=== PATIENT | female | born 1940 | race Caucasian/White ===

== ENCOUNTER → 2016-04-30 | Outpatient (CLI) | payer MEDICARE, OTHER ==
[2016-04-30 14:29] LABS: ABSOLUTE EOSINOPHILS # (AUTO) 0.4 10^3/uL (0.0-0.6); ABSOLUTE LYMPHOCYTES (AUTO) 1.5 10^3/uL (0.5-4.7); ABSOLUTE MONOCYTES (AUTO) 0.6 10^3/uL (0.1-1.4); ABSOLUTE NEUT (AUTO) 3.7 10^3/uL (1.7-8.2); BASOPHILS % (AUTO) 0.4 % (0-2); HEMATOCRIT 46.6 % (36.0-47.0); HEMOGLOBIN 15.9 g/dL (12.0-15.5); HGB HCT DIFFERENCE 1.1; MEAN CORPUSCULAR HEMOGLOBIN 30.2 pg (27.0-33.4); MEAN CORPUSCULAR VOLUME 89 fl (80-97); MONOCYTES % (AUTO) 9.6 % (3-13); RED BLOOD COUNT 5.25 10^6/uL (3.72-5.28); RED CELL DISTRIBUTION WIDTH 14.9 % (11.5-14.0); WHITE BLOOD COUNT 6.2 10^3/uL (4.0-10.5)
[2016-04-30 14:46] LABS: APPEARANCE,URINE CLEAR; BILIRUBIN,URINE NEGATIVE (NEGATIVE); GLUCOSE, URINE 150 mg/dL (NEGATIVE); KETONES,URINE NEGATIVE (NEGATIVE); LEUKOCYTE ESTERASE,URINE SMALL (NEGATIVE); NITRITE,URINE NEGATIVE (NEGATIVE); PROTEIN,URINE NEGATIVE (NEGATIVE); URINE SPECIFIC GRAVITY 1.008; UROBILINOGEN,URINE NEGATIVE mg/dL (<2.0)
[2016-04-30 14:49] LABS: ALBUMIN 3.8 g/dL (3.5-5.0); ANION GAP 11 (5-19); BLOOD UREA NITROGEN 28 mg/dL (7-20); CALCIUM 9.4 mg/dL (8.4-10.2); CARBON DIOXIDE 33 mmol/L (22-30); CHLORIDE 99 mmol/L (98-107); CREATININE RESULT 1.33 mg/dL (0.52-1.25); GLUCOSE 294 mg/dL (75-110); PHOSPHORUS 3.1 mg/dL (2.5-4.5); POTASSIUM 3.7 mmol/L (3.6-5.0); SODIUM 143.3 mmol/L (137-145)
[2016-05-02 08:36] LABS: VITAMIN D 25-HYDROXY 32.3 ng/mL (30.0-100.0)
[2016-05-02 11:39] LABS: CREATININE URINE 27.2 mg/dL (Not Estab.); MICROALBUMIN URINE <3.0 ug/mL (Not Estab.)
== END ==
LOC: OD 12:50
PROVIDERS: ATTEND Internal Medicine Nephrology
DX: N18.3 Chronic kidney disease, stage 3 (moderate) (principal); D50.9 Iron deficiency anemia, unspecified; E55.9 Vitamin D deficiency, unspecified
CPT/HCPCS: 36415; 80048; 81001; 82040; 82043; 82306; 82570; 82728; 83540; 83550; 83970; 84100; 85025

== ENCOUNTER → 2016-09-20 | Outpatient (CLI) | payer MEDICARE, OTHER ==
--- NOTE | 2016-09-20 17:29 | RADIOLOGY REPORT (SQ) ---
EXAM DESCRIPTION: VENOUS UNILATERAL LOWER COMPLETED DATE/TIME: 09/20/2016 5:02 pm REASON FOR STUDY: LLE VENOUS I82.409 ACUTE EMBOLISM AND THOMBOS UNSP DEEP VN UNSP LOWER E COMPARISON: None. TECHNIQUE: Dynamic and static alcaraz scale and color images acquired of the left leg venous system. Se lected spectral images acquired with additional compression and augmentation maneuvers. The contralat eral common femoral vein and saphenofemoral junction were also imaged. Images stored on PACS. LIMITATIONS: None. FINDINGS: COMMON FEMORAL: Normal phasicity, compression and augmentation. No visualized echogenic ma terial on alcaraz scale. No defects on color images. FEMORAL: Normal compression and augmentation. No visualized echogenic material on alcaraz scale. No defe cts on color images. POPLITEAL: Normal compression, augmentation. No visualized echogenic material on alcaraz scale. No defec ts on color images. CALF VESSELS: Normal compression, augmentation. No visualized echogenic material on alcaraz scale. No de fects on color images. GSV and SSV: Normal compression, augmentation. No visualized echogenic material on alcaraz scale. No def ects on color images. ANY DEEP VENOUS INSUFFICIENCY: Not evaluated. ANY EVIDENCE OF POPLITEAL CYST: No. OTHER: No other significant finding. CONTRALATERAL COMMON FEMORAL VEIN AND SAPHENOFEMORAL JUNCTION: Normal phasicity, compression and augmentation. No visualized echogenic material on alcaraz scale. No de fects on color images. IMPRESSION: NO EVIDENCE DVT OR SVT IN THE LEFT LEG. TECHNICAL DOCUMENTATION: JOB ID: [id number] [employer]- All Rights Reserved
== END ==
LOC: SP 16:06
PROVIDERS: ATTEND Podiatrist Foot Surgery
DX: M79.605 Pain in left leg (principal); M79.89 Other specified soft tissue disorders
CPT/HCPCS: 93971

== ENCOUNTER 2016-10-19 22:16 | Observation (INO) | payer MEDICARE, OTHER ==
[2016-10-19] MEDS ORDERED: NITROGLYCERIN 2% OINTMENT 1 GM PACKET TP ONE (22:50)
--- NOTE | 2016-10-19 22:51 | ER Document Report ---
ED General - General Stated Complaint: POSSIBLE STROKE SYMPTOMS Time Seen by Provider: 10/19/16 22:24 Mode of Arrival: Medic Information source: Patient, Emergency Med Personnel TRAVEL OUTSIDE OF THE [place] IN LAST 30 DAYS: No - HPI Notes: Patient is a pleasant 76-year-old female history of MN, atrial fibrillation, cardiac pacemaker placed 7 years ago and was told that she needs a battery replacement in 3 months on recent evaluation, chronic kidney disease, reflux, sleep apnea, diabetes, vascular disease with right leg stents with report that she had 3 episodes where she felt lightheaded and hot and flushed and near syncopal earlier today. First episode occurred earlier in the day when she was walking and she felt lightheaded and had to catch herself. Another episode happened when she is sitting upright at the dining room table where she felt hot flushed and felt a palpitation sensation with rapid heart rate associated. This episode occurred about 3 hours prior to arrival. Just prior to arrival she was upright going to brush her teeth when she felt the same lightheaded generalized weakness and felt a very brief mild headache and then started having chest discomfort. She states she felt near syncopal and called for EMS. She noticed again having a rapid heart rate with palpitations associated with this episode. Patient was seen by EMS and found to have a blood sugar of 339. She was given sublingual nitro and her chest pain came down from a 8 to a 5 and was a 2 out of 10 upon arrival. Patient reports she recently was started on Plavix but another anticoagulant was discontinued. She is on Coumadin. Patient states her weakness was generalized without any unilateral finding. She reports no focal numbness or paresthesia. She has been compliant with her medications. She will reports a 10 pound weight loss recently. - Related Data Allergies/Adverse Reactions: cefazolin sodium [From Ancef] Allergy (Verified 06/09/13 16:16) Iodinated Contrast- Oral and IV Dye [IV Dye, Iodine Containing] Allergy ( Verified 06/09/13 16:16) Zkoheau-Xcw-Giq Reductase Inhibitor Allergy (Verified 10/19/16 22:54) Sulfa (Sulfonamide Antibiotics) Allergy (Verified 06/09/13 16:16) Home Medications: Current Home Medications Ascorbic Acid [Vitamin C 500 mg Tablet] 500 mg PO DAILY 10/20/16 [History] Cholecalciferol (Vitamin D3) [Vitamin D3] 3 cap PO DAILY 10/20/16 [History] Doxycycline Hyclate [Doxycycline Hyclate] 100 mg PO PRN PRN 10/20/16 [History] Fluticasone Propionate 2 sprays IN QHS PRN 10/20/16 [History] Guaifenesin [Mucinex] 600 mg PO Q12HP PRN 10/20/16 [History] Insulin Glargine,Hum.rec.anlog [Lantus Insulin 100 Unit/mL] 55 unit SUBCUT BID 10/20/16 [History] Metoprolol Succinate [Toprol-Xl 25 mg Tab.sr] 1 tab PO DAILY 10/20/16 [History] Warfarin Sodium [Coumadin 5 mg Tablet] 5 mg PO QHS 10/20/16 [History] Past Medical History - General Information source: Patient - Social History Smoking Status: Never Smoker Drug Abuse: None Lives with: Alone Family History: Reviewed & Not Pertinent - Past Medical History Cardiac Medical History: Reports: Hx Congestive Heart Failure, Hx Coronary Artery Disease, Hx Heart Attack, Hx Hypercholesterolemia Pulmonary Medical History: Reports: Hx Bronchitis, Hx COPD Denies: Hx Tuberculosis Endocrine Medical History: Reports: Hx Diabetes Mellitus Type 2 GI Medical History: Reports: Hx Gastroesophageal Reflux Disease Psychiatric Medical History: Reports: Hx Anxiety, Hx Depression Past Surgical History: Reports: Hx Cardiac Catheterization, Hx Cardiac Surgery - paced, Hx Pacemaker - Immunizations Immunizations up to date: No Hx Diphtheria, Pertussis, Tetanus Vaccination: Yes Hx Pneumococcal Vaccination: 04/22/11 Review of Systems - Review of Systems Notes: REVIEW OF SYSTEMS: CONSTITUTIONAL : Denies fever, chills. Denies recent illness. Patient reports associated diaphoresis with the symptoms. EENT: Denies eye, ear, throat, or mouth pain or symptoms. Denies nasal or sinus congestion or discharge. Denies throat, tongue, or mouth swelling or difficulty swallowing. CARDIOVASCULAR: Denies ankle edema. RESPIRATORY: Denies cough, cold, or chest congestion. Denies shortness of breath, difficulty breathing, or wheezing. GASTROINTESTINAL: Denies abdominal pain or distention. Denies nausea, vomiting , or diarrhea. Denies blood in vomitus, stools, or per rectum. Denies black, tarry stools. Denies constipation. GENITOURINARY: Denies difficulty urinating, painful urination, burning, frequency, blood in urine, or discharge. FEMALE GENITOURINARY: Denies vaginal bleeding, heavy or abnormal periods, irregular periods. Denies vaginal discharge or odor. MUSCULOSKELETAL: Denies back or neck pain or stiffness. Denies joint pain or swelling. SKIN: Denies rash, lesions or sores. HEMATOLOGIC : Denies easy bruising or bleeding. LYMPHATIC: Denies swollen, enlarged glands. NEUROLOGICAL: Denies confusion or altered mental status. Denies passing out or loss of consciousness. Denies weakness or paralysis or loss of use of either side. Denies sensory loss, numbness, or tingling. Denies seizures. Patient currently denies any headache. She reports no weakness currently. PSYCHIATRIC: Denies anxiety or stress. Denies depression, suicidal ideation, or homicidal ideation. ALL OTHER SYSTEMS REVIEWED AND NEGATIVE. Dictation was performed using [employer] voice recognition software Physical Exam - Vital signs Vitals: Temp Pulse Resp BP Pulse Ox 97.7 F 70 22 H 130/56 H 96 10/19/16 22:54 10/19/16 22:54 10/19/16 22:54 10/19/16 22:54 10/19/16 22:54 - Notes Notes: PHYSICAL EXAMINATION: GENERAL: Well-appearing, well-nourished and in no acute distress. HEAD: Atraumatic, normocephalic. EYES: Pupils equal round and reactive to light, extraocular movements intact, conjunctiva are normal. ENT: Nares patent, oropharynx clear without exudates. Moist mucous membranes. NECK: Normal range of motion, supple without lymphadenopathy. Question carotid bruit bilat. LUNGS: Breath sounds clear to auscultation bilaterally and equal. No wheezes rales or rhonchi. HEART: Regular rate and rhythm with 1/6 JA over apex ABDOMEN: Soft, nontender, nondistended abdomen. No guarding, no rebound. No masses appreciated. Obese. No cerebellar ataxia. Female : deferred Musculoskeletal: Normal range of motion, no pitting or edema. No cyanosis. NEUROLOGICAL: Cranial nerves grossly intact. Normal speech, normal gait. Normal sensory, motor exams. PSYCH: Normal mood, normal affect. SKIN: Warm, Dry, normal turgor, no rashes or lesions noted. Course - Re-evaluation Re-evalutation: 10/19/16 22:59 No obvious evidence of suggestion for CVA, as the weakness was more generalized , associated with palpitation sensation and irregular heart rate. Patient was given potassium by mouth and was given potassium IV with normal saline with 40 KCl at 2 50 cc an hour. Patient's renal insufficiency is somewhat worse than her previous baseline, possibly indicative of some mild dehydration. Patient had stable vital signs and denied any chest discomfort on 1 inch of nitroglycerin paste. 10/20/16 02:04 Patient was watched up on the color television console monitor and showed no ectopy or arrhythmia , although patient's symptoms are suggestive for arrhythmia. There is no evidence for pacemaker malfunction currently, but the patient states she has 3 months left on her battery after pacemaker placement 7 years ago. Also question mild dehydration as a cause of patient's near syncopal episodes, although one occurred when she was in the seated position. No suggestion for GI bleed or obvious infection. Must also consider unstable angina given the chest pain with response to nitroglycerin. Discussion was undertaken with the patient and she was in agreement with admission for further evaluation and care and rehydration and cardiac monitoring. Discussion was undertaken with the Hospitalist, who was unavailable to admit the patient at the time due to high census . 10/20/16 04:26 Discussion again was undertaken with the hospitalist who was unavailable to admit patient at the time. - Vital Signs Vital signs: Temp Pulse Resp BP Pulse Ox 97.7 F 70 17 121/53 L 96 10/19/16 22:54 10/20/16 03:15 10/20/16 04:01 10/20/16 03:16 10/20/16 04:01 - Laboratory Result Diagrams: 10/19/16 23:24 10/19/16 23:24 Laboratory results interpreted by me: 10/19/16 10/19/16 10/19/16 23:24 23:24 23:24 RDW 14.8 H Eosinophils % 6.1 H PT 18.6 H Potassium 2.9 L* Chloride 96 L BUN 49 H Creatinine 1.79 H Est GFR ( Amer) 33 L Est GFR (Non-Af Amer) 27 L Glucose 239 H Magnesium 1.3 L AST 46 H Urine Glucose (UA) 10/19/16 23:40 RDW Eosinophils % PT Potassium Chloride BUN Creatinine Est GFR ( Amer) Est GFR (Non-Af Amer) Glucose Magnesium AST Urine Glucose (UA) 50 H - EKG Interpretation by Me Additional EKG results interpreted by me: 10/19/16 22:58 EKG as interpreted by me showed ventricular paced rhythm rate 70 with no gross evidence for acute MN or ischemia. There was a secondary bundle branch block. There was no gross change from previous EKG reviewed from 12/14/14. Critical Care Note - Critical Care Note Total time excluding time spent on procedures (mins): 52 Discharge - Discharge Clinical Impression: Near syncope, Palpitations, Renal insufficiency, Hypokalemia
--- NOTE | 2016-10-19 23:20 | RADIOLOGY REPORT (SQ) ---
EXAM DESCRIPTION: CHEST SINGLE VIEW COMPLETED DATE/TIME: 10/19/2016 11:10 pm REASON FOR STUDY: chest pain COMPARISON: 2014 EXAM PARAMETERS: NUMBER OF VIEWS: One view. TECHNIQUE: Single frontal radiographic view of the chest acquired. RADIATION DOSE: NA LIMITATIONS: None. FINDINGS: LUNGS AND PLEURA: No opacities, masses or pneumothorax. No pleural effusion. MEDIASTINUM AND HILAR STRUCTURES: No masses. Contour normal. HEART AND VASCULAR STRUCTURES: Heart normal in size. Normal vasculature. BONES: No acute findings. HARDWARE: Cardiac transvenous pacemaker. OTHER: No other significant finding. IMPRESSION: NO ACUTE RADIOGRAPHIC FINDING IN THE CHEST. TECHNICAL DOCUMENTATION: JOB ID: [id number]
[2016-10-19 23:39] LABS: ABSOLUTE EOSINOPHILS # (AUTO) 0.5 10^3/uL (0.0-0.6); ABSOLUTE LYMPHOCYTES (AUTO) 1.7 10^3/uL (0.5-4.7); ABSOLUTE MONOCYTES (AUTO) 0.9 10^3/uL (0.1-1.4); ABSOLUTE NEUT (AUTO) 4.5 10^3/uL (1.7-8.2); BASOPHILS % (AUTO) 0.6 % (0-2); EOSINOPHILS % (AUTO) 6.1 % (0-6); HEMATOCRIT 43.8 % (36.0-47.0); HEMOGLOBIN 14.5 g/dL (12.0-15.5); HGB HCT DIFFERENCE -0.3; LYMPHOCYTES % (AUTO) 22.1 % (13-45); MEAN CORPUSCULAR HEMOGLOBIN 29.8 pg (27.0-33.4); MEAN CORPUSCULAR HGB CONC 33.1 g/dL (32.0-36.0); MEAN CORPUSCULAR VOLUME 90 fl (80-97); MONOCYTES % (AUTO) 11.3 % (3-13); RED BLOOD COUNT 4.86 10^6/uL (3.72-5.28); RED CELL DISTRIBUTION WIDTH 14.8 % (11.5-14.0); SEGMENTED NEUTROPHILS % (AUTO) 59.9 % (42-78); WHITE BLOOD COUNT 7.6 10^3/uL (4.0-10.5)
[2016-10-19 23:45] LABS: PROTHROMBIN TIME 18.6 SEC (11.4-15.4)
[2016-10-19 23:55] LABS: ALANINE AMINOTRANSFERASE 43 U/L (9-52); ALBUMIN 3.8 g/dL (3.5-5.0); ALKALINE PHOSPHATASE 95 U/L (38-126); ANION GAP 14 (5-19); ASPARTATE AMINO TRANSFERASE 46 U/L (14-36); BILIRUBIN,DIRECT 0.3 mg/dL (0.0-0.4); BILIRUBIN,TOTAL 0.8 mg/dL (0.2-1.3); BLOOD UREA NITROGEN 49 mg/dL (7-20); CALCIUM 9.6 mg/dL (8.4-10.2); CARBON DIOXIDE 29 mmol/L (22-30); CHLORIDE 96 mmol/L (98-107); CREATININE RESULT 1.79 mg/dL (0.52-1.25); GLUCOSE 239 mg/dL (75-110); MAGNESIUM 1.3 mg/dL (1.6-2.3); SODIUM 139.3 mmol/L (137-145)
[2016-10-19 23:58] LABS: APPEARANCE,URINE SLIGHTLY-CLOUDY; BILIRUBIN,URINE NEGATIVE (NEGATIVE); GLUCOSE, URINE 50 mg/dL (NEGATIVE); KETONES,URINE NEGATIVE (NEGATIVE); LEUKOCYTE ESTERASE,URINE NEGATIVE (NEGATIVE); NITRITE,URINE NEGATIVE (NEGATIVE); PROTEIN,URINE NEGATIVE (NEGATIVE); URINE SPECIFIC GRAVITY 1.011; UROBILINOGEN,URINE NEGATIVE mg/dL (<2.0)
[2016-10-20 00:02] LABS: POTASSIUM 2.9 mmol/L (3.6-5.0)
[2016-10-20] MEDS ORDERED: POTASSIUM CHLORIDE 10 MEQ TABLET.SA PO ONE (00:05)
[2016-10-20 00:07] LABS: CREATINE KINASE MB 1.54 ng/mL (<4.55)
[2016-10-20] MEDS ORDERED: POTASSI CL 40 MEQ/NS 1L 1,000 ML IV ONE (00:07)
[2016-10-20 00:08] LABS: TROPONIN I < 0.012 ng/mL
[2016-10-20 00:25] LABS: THYROID STIMULATING HORMONE 1.35 uIU/mL (0.47-4.68)
[2016-10-20] MEDS ORDERED: MAG HYDROX/AL HYDROX/SIMETH SUSP 30 ML UDCUP PO ONE (01:32)
[2016-10-20] MEDS ORDERED: ONDANSETRON HCL INJ/PF 4 MG/2 ML SDV IV ONE (01:32)
[2016-10-20] MEDS ORDERED: FAMOTIDINE 20 MG TABLET PO ONE (01:32)
[2016-10-20] MEDS ORDERED: MAGNESIUM OXIDE 400 MG TABLET PO ONE (06:06)
[2016-10-20] MEDS: MAGNESIUM SULFATE/D5W 100 ML IV SCH ×2 (06:23→09:07)
[2016-10-20] MEDS ORDERED: DEXTROSE 50%-WATER 25 GM/50 ML DISP.SYRIN IV PRN ×2 (08:13)
[2016-10-20] MEDS ORDERED: DEXTROSE 40% GEL 15 GM TUBE PO PRN ×2 (08:13)
[2016-10-20] MEDS ORDERED: GLUCAGON,HUMAN RECOMB 1 MG INJ IM PRN (08:13)
[2016-10-20] MEDS ORDERED: ACETAMINOPHEN 325 MG TABLET PO PRN (08:24)
[2016-10-20] MEDS ORDERED: PROMETHAZINE HCL 25 MG TABLET PO PRN (08:30)
--- NOTE | 2016-10-20 08:59 | PDOC H&P ---
History of Present Illness Admission Date/PCP: 10/20/16 06:14 [facility] Cards Dr. Herrera [facility] Patient complains of: chest pain, near syncope History of Present Illness: MISAEL BRUNO is a 76 year old female with previous history of myocardial infarction, known diastolic congestive heart failure, chronic atrial fibrillation, on Coumadin for same, status post previous cardiac pacemaker implant, along with type 1 diabetes mellitus, stage III chronic kidney disease, obstructive sleep apnea, not compliant with CPAP mask due to discomfort, along with peripheral vascular disease, having undergone lower extremity stent implant , who presents to the emergency room for evaluation of 3 near syncopal episodes over the past 24 hours. Patient has been discussed with emergency room physician who evaluated the patient. With each episode, she became lightheaded, hot and flushed sensation. First 2 episodes resolved on their own. With the third episode, she began having combination pressure and sharp chest discomfort with associated palpitations and a sensation of a rapid heart rate. Was given sublingual nitroglycerin by EMS with partial relief of her chest pain , with eventual complete relief with application of nitroglycerin ointment. Questionable chills; no fever. No nausea vomiting, diarrhea or dysuria. She has been compliant with her medications. Plavix was added approximately a week or so ago. States she has been told that her pulse generator needs changing some time within the next 3 months. She is actually scheduled to meet with Dr. Herrera in the next week or 2 to plan the procedure. Of note, according to emergency room physician, cardiac catheterization technician has shown no obvious evidence of pacemaker malfunction. She is currently resting quietly, chest pain-free. Hospitalized on our service December 15 through the 2014, with final diagnoses including acute asthmatic bronchitis, COPD exacerbation, acute on chronic diastolic congestive heart failure, along with acute on chronic respiratory failure. History and physical and discharge summary have been reviewed.. Laboratory results are listed in [employer] and are reviewed. X-ray summary results are listed below, with full report(s) reviewed. . EKG reviewed and compared to prior tracing from December 142014. Social history/personal habits: . Lives alone. 3 children. Retired. No use of alcohol tobacco or illicit drugs. Allergies/adverse reactions are listed in [employer] and are reviewed. No problems with penicillin. Home medications initially autopopulated into [employer] may not accurately reflect patient's true medications, dosages, and/or frequencies. fiber technologist to reconcile medications. Unfortunately, patient not certain of all medications/dosages/frequencies. REVIEW OF SYSTEMS: Constitutional: See history and present illness. Eyes: No vision complaints. ENT: No swallowing problems or complaints. Denies hearing loss. Pulmonary: No current complaints. Cardiovascular: See history and present illness. Gastrointestinal: No current complaints, including nausea or vomiting. Skin: Occasional problems with rosacea. Hematologic: Easy bruising. Neurologic: No current complaints, including numbness or tingling. Musculoskeletal: Joint pain from arthritis. Psychiatric: Mild anxiety and depression. Denies suicidal or homicidal ideation. Endocrine: No current complaints, including polyuria. Genitourinary: No current complaints, including dysuria. PHYSICAL EXAMINATION: 5 feet 4 inches tall. 101.2 kg. BMI 38.3 kg/m. Blood pressure 106/51. Pulse 70 and regular. 93% saturation on room air. Respirations are 19 and unlabored. Temperature 97.7. Obese otherwise well-developed elderly female who appears somewhat younger than her stated age. Pleasant awake alert and cooperative. No obvious distress other than perhaps mildly anxious. Skin is warm and dry. No grossly obvious evidence of rash in areas of skin examined. No subcutaneous nodules palpated. ENT: Hearing grossly normal to normal conversation. Tongue midline on protrusion pink and slightly tacky. Eyes: No scleral icterus. Pupils equal and reactive to light at 4 mm. [place] conjunctivae. Neck is supple and nontender to gentle active range of motion and palpation. Midline trachea. No palpable thyroid nodule mass enlargement or tenderness. Lymphatic: No palpable cervical or clavicular nodes. Neck and lymphatic exams limited by patient body habitus. Psychiatric: Reasonable insight into acute and chronic medical issues. Oriented to time location and why here. Lungs: Auscultation reveals clear and equal breath sounds bilaterally. No use of accessory respiratory muscles. Cardiovascular: Heart regular rate and rhythm, without gallop murmur or rub. No carotid or abdominal aortic bruits. No ankle or pedal edema. Faintly palpable dorsalis pedis pulses. Abdomen:soft somewhat obese nontender with positive bowel sounds. Unable to adequately evaluate abdomen for masses or organomegaly due to body habitus. Compression of sternum does not reproduce her previously noted chest discomfort , but patient notes perhaps slight reproduction of her chest discomfort with epigastric compression. Extremities: Feet are warm and dry. No calf tenderness to compression. No grossly obvious visual evidence of calf swelling. Gentle manipulation of lower extremities fails to reveal any obvious evidence of injury or instability to knees hips or ankles. Neurologic: Moves upper extremities grossly normally. Patellar reflexes absent. Absent Babinski. Light touch is intact at feet. Dorsiflexion and plantarflexion of feet 5 / 5 and symmetric. Past Medical History Cardiac Medical History: Reports: Congestive Heart Failure - Diastolic, Coronary Artery Disease, Myocardial Infarction, Hyperlipidema, Hypertension Denies: DVT, Pulmonary Embolism Pulmonary Medical History: Reports: Bronchitis, Chronic Obstructive Pulmonary Disease (COPD), Sleep Apnea - Not compliant with CPAP mask due to discomfort. 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 , Other - TIA 2. Denies: Hemorrhagic CVA Endocrine Medical History: Reports: Diabetes Mellitus Type 1 Denies: Hyperthyroidism, Hypothyroidism Renal/ Medical History: Reports: Chronic Kidney Disease GI Medical History: Reports: Gastroesophageal Reflux Disease Denies: Cirrhosis, Hepatitis, Peptic Ulcer Disease Musculoskeltal Medical History: Reports: Arthritis Skin Medical History: Reports: Other - Rosacea Psychiatric Medical History: Reports: Depression, General Anxiety Disorder Denies: Alcohol Dependency, Substance Abuse, Tobacco Dependency Hematology: Reports: Other - Easy bruising Infectious Medical History: Denies: Hepatitis B, Hepatitis C Past Surgical History Past Surgical History: Reports: Cardiac Catheterization, Hysterectomy, Pacemaker , Tonsillectomy Social History Information Source: Patient, Emergency Med Personnel, [facility], [facility] Records Lives with: Alone Smoking Status: Never Smoker Frequency of Alcohol Use: None Hx Recreational Drug Use: No Drugs: None Hx Prescription Drug Abuse: No - Advance Directive Resuscitation Status: Full Code Surrogate healthcare decision maker:: Her son Ed Family History Family History: Reviewed & Not Pertinent Parental Family History Reviewed: Yes - Mother diabetic coma. Father of tuberculosis. Children Family History Reviewed: Yes - Healthy Sibling(s) Family History Reviewed.: Yes - Multiple siblings with heart trouble. Medication/Allergy Home Medications: Omeprazole [Prilosec 20 mg Capsule] 20 mg PO BID 09/07/11 Albuterol Sulfate [Albuterol Sulfate Hfa] 1 - 2 puff IH Q4HP PRN 06/09/13 Butalb/Acetaminophen/Caffeine [Fioricet (50-325-40 mg) Tablet] 1 tab PO Q4HP PRN 06/09/13 Calcium Carbonate/Vitamin D3 [Calcium 600-Vit D3 200 Tablet] 2 tab PO DAILY Cyclosporine [Restasis Droperette] 1 each OP BID 06/09/13 Diphenhydramine HCl [Benadryl] 25 mg PO Q6 PRN 06/09/13 Escitalopram Oxalate [Lexapro] 10 mg PO QHS 06/09/13 Fexofenadine HCl [Iris] 180 mg PO DAILY 06/09/13 Gabapentin [Neurontin] 600 mg PO TID 06/09/13 Hydrocodone/Acetaminophen [[place]ammon 5-325 mg Tablet] 1 tab PO BID PRN 06/09/13 Nitroglycerin 0.4 mg SL Q5M PRN 06/09/13 [place]-3 Fatty Acids/Fish Oil [Fish Oil 1,[address]] 1 each PO BID Paricalcitol [Zemplar] 1 mcg PO QAM 06/09/13 Clotrimazole 1% Topical [Lotrimin 1% Topical Soln 10 ml] 1 applic TP DAILY 09/11 Diazepam [Valium 5 mg Tablet] 2.5 mg PO BID PRN 09/11/14 Docusate Sodium [Colace 100 mg Capsule] 100 mg PO DAILY 09/11/14 Epinephrine [Epipen 2-Alfred] 0.3 mg IM PRN PRN 09/11/14 Ferrous Sulfate [Feosol] 325 mg PO DAILY 09/11/14 Furosemide [Lasix 40 mg Tablet] 40 mg PO QAM 09/11/14 Insulin Aspart [Novolog Insulin (Aspart) 100 unit/mL] 20 unit SUBCUT AC Ketoconazole 120 ml TP DAILY 09/11/14 Ketoconazole [Nizoral] 1 bottle TOP DAILY 09/11/14 Ascorbic Acid [Vitamin C 500 mg Tablet] 500 mg PO DAILY 10/20/16 Cholecalciferol (Vitamin D3) [Vitamin D3] 3 cap PO DAILY 10/20/16 Fluticasone Propionate 2 sprays IN QHS PRN 10/20/16 Guaifenesin [Mucinex] 600 mg PO Q12HP PRN 10/20/16 Metoprolol Succinate [Toprol-Xl 25 mg Tab.sr] 1 tab PO QHS 10/20/16 Warfarin Sodium [Coumadin 5 mg Tablet] 5 mg PO SUTUTHSA 10/20/16 Warfarin Sodium [Coumadin 7.5 mg Tablet] 7.5 mg PO MOWEFR 10/20/16 Insulin Glargine,Hum.rec.anlog [Lantus Insulin 100 Unit/mL] 50 unit SUBCUT DAILY #1 insuln.pen 10/21/16 Insulin Glargine,Hum.rec.anlog [Lantus] 30 unit SQ QHS #1 vial 10/21/16 Magnesium Oxide 400 mg PO BID #100 tablet 10/21/16 Potassium Chloride 20 meq PO ASDIR PRN #30 tablet.er 10/21/16 Allergies/Adverse Reactions: cefazolin sodium [From Anc] Allergy (Verified 10/20/16 08:35) Iodinated Contrast- Oral and IV Dye [IV Dye, Iodine Containing] Allergy ( Verified 06/09/13 16:16) [id number] Reductase Inhibitor Allergy (Verified 10/19/16 22:54) Sulfa (Sulfonamide Antibiotics) Allergy (Verified 06/09/13 16:16) Physical Exam Vital Signs: Temp Pulse Resp BP Pulse Ox 97.7 F 70 15 102/50 L 97 10/19/16 22:54 10/20/16 06:50 10/20/16 07:01 10/20/16 07:01 10/20/16 07:01 Results Impressions: Chest X-Ray 10/19/16 22:49 IMPRESSION: NO ACUTE RADIOGRAPHIC FINDING IN THE CHEST. Assessment & Plan - Diagnosis (1) Chest pain Qualifiers: Chest pain type: other chest pain Qualified Code(s): R07.89 - Other chest pain; R07.8 - Other chest pain Is this a current diagnosis for this admission?: YesPlan: With physical exam findings, likely musculoskeletal and/or reflux. However, given patient's known underlying coronary artery disease, will repeat troponin. Patient understands to notify staff should chest pain recur. Patient strongly encouraged not to get out of bed without notifying staff, to avoid a fall with injury. Knee-high SCD's; with patient on Coumadin, no need for Lovenox or Heparin. Impression and plans discussed in layperson's terms with patient, who concurs. (2) Hypokalemia Is this a current diagnosis for this admission?: YesPlan: Repeat chemistry. Further supplement as necessary. Likely at least partly responsible for her near syncopal episodes. (3) Hypomagnesemia Is this a current diagnosis for this admission?: YesPlan: Repeat chemistry. Further supplement as necessary. Likely at least partly responsible for her near syncopal episodes. (4) Near syncope Is this a current diagnosis for this admission?: YesPlan: Orthostatic vital signs q 4 hours while awake. (5) Obstructive sleep apnea syndrome Is this a current diagnosis for this admission?: YesPlan: CPAP (6) Atrial fibrillation Qualifiers: Atrial fibrillation type: chronic Qualified Code(s): I48.2 - Chronic atrial fibrillation Is this a current diagnosis for this admission?: YesPlan: Resume home medications as appropriate once these have been determined and reviewed. (7) emt intermediate current use of anticoagulant therapy Is this a current diagnosis for this admission?: YesPlan: Resume home medications as appropriate once these have been determined and reviewed. (8) Pacemaker Is this a current diagnosis for this admission?: YesPlan: Pulse generator near end of battery life, but so far appears to be functioning properly. Scheduled to see her deputy chief sheriff in the coming days to arrange pulse generator change.
[2016-10-20 09:15] LABS: PROTHROMBIN TIME 20.3 SEC (11.4-15.4)
[2016-10-20 09:30] LABS: ANION GAP 9 (5-19); BLOOD UREA NITROGEN 43 mg/dL (7-20); CALCIUM 8.7 mg/dL (8.4-10.2); CARBON DIOXIDE 30 mmol/L (22-30); CHLORIDE 100 mmol/L (98-107); CREATININE RESULT 1.48 mg/dL (0.52-1.25); GLUCOSE 139 mg/dL (75-110); MAGNESIUM 1.8 mg/dL (1.6-2.3); POTASSIUM 3.4 mmol/L (3.6-5.0); SODIUM 139.4 mmol/L (137-145)
[2016-10-20] MEDS ORDERED: TRAMADOL HCL 50 MG TABLET PO PRN (11:25)
[2016-10-20] MEDS ORDERED: HYDROCODONE/ACETAMINOPHEN 5-325 MG TABLET PO PRN (11:25)
[2016-10-20] MEDS ORDERED: NITROGLYCERIN 0.4 MG/TAB 25 TAB/BOTTLE SL PRN (11:25)
[2016-10-20] MEDS ORDERED: (PENDING PHARMACY ID) (Warfarin Sodium 5 MG) PO SCH (11:30)
[2016-10-20] MEDS: INSULIN LISPRO 100 UNIT/ML 3 ML VIAL SUBCUT PRN ×3 (11:33→22:09)
[2016-10-20] MEDS: DOCUSATE SODIUM 100 MG CAPSULE PO SCH ×2 (11:34→18:14)
[2016-10-20] MEDS: ASPIRIN 81 MG TABLET, ENT COATED PO SCH (11:34)
[2016-10-20] MEDS ORDERED: FERROUS SULFATE 325 MG TABLET PO ONE (13:00)
[2016-10-20] MEDS ORDERED: WARFARIN SODIUM 5 MG TABLET PO ONE (13:30)
--- NOTE | 2016-10-20 13:42 | EKG REPORT ---
SEVERITY:- ABNORMAL ECG - VENTRICULAR-PACED RHYTHM : Confirmed by: Yue Saha 20-Oct-2016 13:41:04
[2016-10-20] MEDS: GABAPENTIN 300 MG CAPSULE PO SCH ×2 (14:04→21:51)
[2016-10-20] MEDS: CYCLOSPORINE 0.05% OPH EMULSIO 0.4 ML DROPERETTE OU SCH (18:13)
[2016-10-20] MEDS ORDERED: (PENDING PHARMACY ID) (Escitalopram Oxalate [Lexapro] 10 MG) PO SCH (22:00)
[2016-10-20] MEDS ORDERED: METOPROLOL SUCCINATE 25 MG TAB.SR.24H PO SCH (22:00)
[2016-10-20] MEDS ORDERED: ESCITALOPRAM OXALATE 10 MG TABLET PO SCH (22:00)
[2016-10-21] MEDS: GABAPENTIN 300 MG CAPSULE PO SCH (05:21)
[2016-10-21 07:32] LABS: PROTHROMBIN TIME 18.6 SEC (11.4-15.4)
[2016-10-21 07:33] LABS: ABSOLUTE BASOPHILS # (AUTO) 0.1 10^3/uL (0.0-0.2); ABSOLUTE EOSINOPHILS # (AUTO) 0.5 10^3/uL (0.0-0.6); ABSOLUTE LYMPHOCYTES (AUTO) 1.8 10^3/uL (0.5-4.7); ABSOLUTE MONOCYTES (AUTO) 0.7 10^3/uL (0.1-1.4); ABSOLUTE NEUT (AUTO) 4.7 10^3/uL (1.7-8.2); EOSINOPHILS % (AUTO) 6.8 % (0-6); HEMATOCRIT 41.7 % (36.0-47.0); HEMOGLOBIN 13.8 g/dL (12.0-15.5); HGB HCT DIFFERENCE -0.3; LYMPHOCYTES % (AUTO) 23.2 % (13-45); MEAN CORPUSCULAR HEMOGLOBIN 30.1 pg (27.0-33.4); MEAN CORPUSCULAR VOLUME 91 fl (80-97); MONOCYTES % (AUTO) 8.7 % (3-13); RED BLOOD COUNT 4.57 10^6/uL (3.72-5.28); RED CELL DISTRIBUTION WIDTH 14.9 % (11.5-14.0); SEGMENTED NEUTROPHILS % (AUTO) 60.3 % (42-78); WHITE BLOOD COUNT 7.8 10^3/uL (4.0-10.5)
[2016-10-21 07:53] LABS: ANION GAP 11 (5-19); BLOOD UREA NITROGEN 33 mg/dL (7-20); CALCIUM 9.4 mg/dL (8.4-10.2); CARBON DIOXIDE 26 mmol/L (22-30); CHLORIDE 99 mmol/L (98-107); CREATININE RESULT 1.38 mg/dL (0.52-1.25); GLUCOSE 209 mg/dL (75-110); MAGNESIUM 1.8 mg/dL (1.6-2.3); POTASSIUM 3.9 mmol/L (3.6-5.0); SODIUM 136.3 mmol/L (137-145)
[2016-10-21] MEDS: INSULIN LISPRO 100 UNIT/ML 3 ML VIAL SUBCUT PRN ×3 (08:06→11:58)
[2016-10-21] MEDS ORDERED: WARFARIN SODIUM 5 MG TABLET PO SCH (10:00)
[2016-10-21] MEDS ORDERED: CLOTRIMAZOLE 1% TOPICAL SOLN 10 ML TP PRN (10:00)
[2016-10-21] MEDS ORDERED: FERROUS SULFATE 325 MG TABLET PO SCH (10:00)
[2016-10-21] MEDS: ASPIRIN 81 MG TABLET, ENT COATED PO SCH (10:45)
[2016-10-21] MEDS: CYCLOSPORINE 0.05% OPH EMULSIO 0.4 ML DROPERETTE OU SCH (10:50)
[2016-10-21] MEDS: DOCUSATE SODIUM 100 MG CAPSULE PO SCH (10:50)
[2016-10-21 11:10] VITALS: BP 125/50
--- NOTE | 2016-10-21 11:21 | PDOC DISCHARGE SUMMARY ---
General - Admit/Disc Date/PCP Admission Date/Primary Care Provider: 10/20/16 08:21 Discharge Date: 10/21/16 - Discharge Diagnosis (1) Chest pain Is this a current diagnosis for this admission?: YesSummary: resolved and has not recurred, she ruled out for acute myocardial ischemia with negative enzymes and her ecg, while paced, doesn't show any ST segment elevation /depression. she has appt to f/u with cardio, dr lagunas 10/29 and should discuss further risk stratification and ischemic evaluation with him at that time. return to the ED for recurrent or worsening symptoms. (2) Hypokalemia Is this a current diagnosis for this admission?: YesSummary: likely partly to blame for her presentation. instructed to increase her KCL to 20meq bid x3d then once daily until f/u with her doctors for further dose adjustments. (3) Hypomagnesemia Is this a current diagnosis for this admission?: YesSummary: also at least partly to blame for her presentation. take Mg Ox 400mg BID and follow up with PCP for further monitoring. (4) Near syncope Is this a current diagnosis for this admission?: YesSummary: likely related to electrolyte abnl's as this was only intervention received and she is now symptom free for the first time in a week. treat as above. (5) Renal insufficiency Is this a current diagnosis for this admission?: YesSummary: at or near her baseline. f/u with dr molina per usual routine (6) Pacemaker Is this a current diagnosis for this admission?: YesSummary: due for replacement, unclear if contributing to her presentation. keep appt as noted above with dr lagunas (7) care home current use of anticoagulant therapy Is this a current diagnosis for this admission?: YesSummary: subTx on her coumadin, instructed to take 10mg today and Saturday, then resume her new regimen started by dr lagunas's office. she self monitors at home. - Additional Information Resuscitation Status: Full Code Discharge Diet: Cardiac Discharge Activity: Activity As Tolerated Home Medications: Omeprazole [Prilosec 20 mg Capsule] 20 mg PO BID 09/07/11 Albuterol Sulfate [Albuterol Sulfate Hfa] 1 - 2 puff IH Q4HP PRN 06/09/13 Butalb/Acetaminophen/Caffeine [Fioricet (50-325-40 mg) Tablet] 1 tab PO Q4HP PRN 06/09/13 Calcium Carbonate/Vitamin D3 [Calcium 600-Vit D3 200 Tablet] 2 tab PO DAILY Cyclosporine [Restasis Droperette] 1 each OP BID 06/09/13 Diphenhydramine HCl [Benadryl] 25 mg PO Q6 PRN 06/09/13 Escitalopram Oxalate [Lexapro] 10 mg PO QHS 06/09/13 Fexofenadine HCl [Iris] 180 mg PO DAILY 06/09/13 Gabapentin [Neurontin] 600 mg PO TID 06/09/13 Hydrocodone/Acetaminophen [[place] 5-325 mg Tablet] 1 tab PO BID PRN 06/09/13 Nitroglycerin 0.4 mg SL Q5M PRN 06/09/13 [place]-3 Fatty Acids/Fish Oil [Fish Oil 1,[address]] 1 each PO BID Paricalcitol [Zemplar] 1 mcg PO QAM 06/09/13 Clotrimazole 1% Topical [Lotrimin 1% Topical Soln 10 ml] 1 applic TP DAILY 09/11 Diazepam [Valium 5 mg Tablet] 2.5 mg PO BID PRN 09/11/14 Docusate Sodium [Colace 100 mg Capsule] 100 mg PO DAILY 09/11/14 Epinephrine [Epipen 2-Alfred] 0.3 mg IM PRN PRN 09/11/14 Ferrous Sulfate [Feosol] 325 mg PO DAILY 09/11/14 Furosemide [Lasix 40 mg Tablet] 40 mg PO QAM 09/11/14 Insulin Aspart [Novolog Insulin (Aspart) 100 unit/mL] 20 unit SUBCUT AC Ketoconazole 120 ml TP DAILY 09/11/14 Ketoconazole [Nizoral] 1 bottle TOP DAILY 09/11/14 Ascorbic Acid [Vitamin C 500 mg Tablet] 500 mg PO DAILY 10/20/16 Cholecalciferol (Vitamin D3) [Vitamin D3] 3 cap PO DAILY 10/20/16 Fluticasone Propionate 2 sprays IN QHS PRN 10/20/16 Guaifenesin [Mucinex] 600 mg PO Q12HP PRN 10/20/16 Metoprolol Succinate [Toprol-Xl 25 mg Tab.sr] 1 tab PO QHS 10/20/16 Warfarin Sodium [Coumadin 5 mg Tablet] 5 mg PO SUTUTHSA 10/20/16 Warfarin Sodium [Coumadin 7.5 mg Tablet] 7.5 mg PO MOWEFR 10/20/16 Insulin Glargine,Hum.rec.anlog [Lantus Insulin 100 Unit/mL] 50 unit SUBCUT DAILY #1 insuln.pen 10/21/16 Insulin Glargine,Hum.rec.anlog [Lantus] 30 unit SQ QHS #1 vial 10/21/16 Magnesium Oxide 400 mg PO BID #100 tablet 10/21/16 Potassium Chloride 20 meq PO ASDIR PRN #30 tablet.er 10/21/16 History of Present Illness Patient complains of: chest pressure, postural lightheadedness History of Present Illness: MISAEL BRUNO is a 76 year old female MISAEL BRUNO is a 76 year old female with previous history of myocardial infarction, known diastolic congestive heart failure, chronic atrial fibrillation, on Coumadin for same, status post previous cardiac pacemaker implant, along with type 1 diabetes mellitus, stage III chronic kidney disease, obstructive sleep apnea, not compliant with CPAP mask due to discomfort, along with peripheral vascular disease, having undergone lower extremity stent implant, who presents to the emergency room for evaluation of 3 near syncopal episodes over the past 24 hours. Patient has been discussed with emergency room physician who evaluated the patient. With each episode, she became lightheaded, hot and flushed sensation. First 2 episodes resolved on their own. With the third episode, she began having combination pressure and sharp chest discomfort with associated palpitations and a sensation of a rapid heart rate. Was given sublingual nitroglycerin by EMS with partial relief of her chest pain , with eventual complete relief with application of nitroglycerin ointment. Questionable chills; no fever. No nausea vomiting, diarrhea or dysuria. She has been compliant with her medications. Plavix was added approximately a week or so ago. States she has been told that her pulse generator needs changing some time within the next 3 months. She is actually scheduled to meet with Dr. Lagunas in the next week or 2 to plan the procedure. Of note, according to emergency room physician, telemetry monitor is shown no obvious evidence of pacemaker malfunction. She is currently resting quietly, chest pain-free. Hospitalized on our service December 15 through the 2014, with final diagnoses including acute asthmatic bronchitis, COPD exacerbation, acute on chronic diastolic congestive heart failure, along with acute on chronic respiratory failure. History and physical and discharge summary have been reviewed.. Hospital Course Hospital Course: admitted and monitored overnight without recurrence in her symptoms, paced rhythm on the monitor and ruled out for acute myocardial ischemia. we corrected her electrolytes with complete resolution of her symptoms implying they are likely source of her symptoms. as such she was counseled regarding ongoing replacement and to f/u wtih her PCP in one week for tenzin and keep her appt with dr lagunas coming up next week. return to the ED for worsening or recurrent symptoms. Physical Exam Vital Signs: Temp Pulse Resp BP Pulse Ox 97.4 F 70 17 125/50 L 92 10/21/16 11:04 10/21/16 11:04 10/21/16 11:04 10/21/16 11:04 10/21/16 11:04 Intake & Output 10/20/16 10/21/16 10/22/16 06:59 06:59 06:59 Intake Total 1815 Output Total 1955 Balance -140 General appearance: PRESENT: no acute distress, obese, well-developed, well- nourished Head exam: PRESENT: normocephalic Eye exam: PRESENT: EOMI. ABSENT: nystagmus Respiratory exam: PRESENT: clear to auscultation keo. ABSENT: accessory muscle use Pulses: PRESENT: normal radial pulses GI/Abdominal exam: PRESENT: normal bowel sounds, soft Neurological exam: PRESENT: alert, awake, oriented to person, oriented to place , oriented to time, oriented to situation Psychiatric exam: PRESENT: appropriate affect, normal mood Results Laboratory Results: 10/21/16 07:03 10/21/16 07:03 10/21/16 10/21/16 07:03 07:03 WBC 7.8 RBC 4.57 Hgb 13.8 Hct 41.7 MCV 91 MCH 30.1 MCHC 33.0 RDW 14.9 H Plt Count 188 Seg Neutrophils % 60.3 Lymphocytes % 23.2 Monocytes % 8.7 Eosinophils % 6.8 H Basophils % 1.0 Absolute Neutrophils 4.7 Absolute Lymphocytes 1.8 Absolute Monocytes 0.7 Absolute Eosinophils 0.5 Absolute Basophils 0.1 Sodium 136.3 L Potassium 3.9 Chloride 99 Carbon Dioxide 26 Anion Gap 11 BUN 33 H Creatinine 1.38 H Est GFR ( Amer) 45 L Est GFR (Non-Af Amer) 37 L Glucose 209 H Calcium 9.4 Magnesium 1.8 10/20/16 10/21/16 08:49 07:03 Troponin I 0.016 0.028 Impressions: Chest X-Ray 10/19/16 22:49 IMPRESSION: NO ACUTE RADIOGRAPHIC FINDING IN THE CHEST. Qualifiers PATEINT BEING DISCHARGED WITH ANY OF THE FOLLOWING DIAGNOSIS?: No VTE patient discharged on overlapping Therapy?: No Reason(s) for not prescribing Overlap Therapy:: Not indicated Plan Discharge Plan: stable for d/c home, f/u as noted, new Rxs as noted, return as instructed Time Spent: Greater than 30 Minutes
[2016-10-22] MEDS ORDERED: WARFARIN SODIUM 7.5 MG TABLET PO SCH (10:00)
[2016-10-22] MEDS ORDERED: (PENDING PHARMACY ID) (Warfarin Sodium 7.5 MG) PO SCH (11:25)
== END 2016-10-21 12:45 | disposition home or self-care (01) ==
LOC: ER 22:16 → EH 10-20 06:14 → UNDOADMOB 10-20 06:14 → EH 10-20 08:21 → 5 10-20 10:16
PROVIDERS: ADMIT Family Medicine; ATTEND Family Medicine
DX: R07.89 Other chest pain (principal); E87.6 Hypokalemia; E83.42 Hypomagnesemia; R55 Syncope and collapse; N28.9 Disorder of kidney and ureter, unspecified; I48.2 Chronic atrial fibrillation; I13.0 Hypertensive heart and chronic kidney disease with heart failure and stage 1 through stage 4 chronic kidney disease, or unspecified chronic kidney disease; N18.3 Chronic kidney disease, stage 3 (moderate); I50.32 Chronic diastolic (congestive) heart failure; E10.22 Type 1 diabetes mellitus with diabetic chronic kidney disease; I73.9 Peripheral vascular disease, unspecified; G47.33 Obstructive sleep apnea (adult) (pediatric); J44.9 Chronic obstructive pulmonary disease, unspecified; M19.90 Unspecified osteoarthritis, unspecified site; F41.1 Generalized anxiety disorder; F32.9 Major depressive disorder, single episode, unspecified; Z91.14 Patient's other noncompliance with medication regimen; I25.2 Old myocardial infarction; R63.4 Abnormal weight loss; E66.9 Obesity, unspecified; I45.4 Nonspecific intraventricular block; K21.9 Gastro-esophageal reflux disease without esophagitis; Z95.0 Presence of cardiac pacemaker; Z79.01 Long term (current) use of anticoagulants; Z79.899 Other long term (current) drug therapy; Z79.891 Long term (current) use of opiate analgesic; Z79.4 Long term (current) use of insulin; Z95.828 Presence of other vascular implants and grafts; Z83.1 Family history of other infectious and parasitic diseases; Z83.3 Family history of diabetes mellitus; Z82.49 Family history of ischemic heart disease and other diseases of the circulatory system; Z86.73 Personal history of transient ischemic attack (TIA), and cerebral infarction without residual deficits; Z79.02 Long term (current) use of antithrombotics/antiplatelets; Z68.38 Body mass index [BMI] 38.0-38.9, adult
CPT/HCPCS: 93005; 99291; 96375; 96365; 96366; 96367; 36415 ×3; 84439; 82553; 82962 ×2; 83735 ×3; 84443; 85025 ×2; 85610 ×3; 80048 ×2; 80053; 81001; 84484 ×3; 71010; 93010; G0378 ×3; A9270 ×13; J3490 ×3; J3475; J2405; J3480; J1815

== ENCOUNTER → 2016-10-25 | Outpatient (CLI) | payer MEDICARE, OTHER ==
[2016-10-25 17:12] LABS: ANION GAP 12 (5-19); BLOOD UREA NITROGEN 34 mg/dL (7-20); CALCIUM 9.8 mg/dL (8.4-10.2); CARBON DIOXIDE 27 mmol/L (22-30); CHLORIDE 99 mmol/L (98-107); CREATININE RESULT 1.34 mg/dL (0.52-1.25); GLUCOSE 186 mg/dL (75-110); SODIUM 138.2 mmol/L (137-145)
== END ==
LOC: OD 15:41
PROVIDERS: ATTEND Internal Medicine Nephrology
DX: N18.3 Chronic kidney disease, stage 3 (moderate) (principal)
CPT/HCPCS: 36415; 80048

== ENCOUNTER → 2017-04-30 | Outpatient (CLI) | payer MEDICARE, OTHER ==
[2017-04-30 13:18] LABS: ABSOLUTE EOSINOPHILS # (AUTO) 0.4 10^3/uL (0.0-0.6); ABSOLUTE LYMPHOCYTES (AUTO) 1.3 10^3/uL (0.5-4.7); ABSOLUTE MONOCYTES (AUTO) 0.6 10^3/uL (0.1-1.4); ABSOLUTE NEUT (AUTO) 3.4 10^3/uL (1.7-8.2); BASOPHILS % (AUTO) 0.5 % (0-2); EOSINOPHILS % (AUTO) 6.9 % (0-6); HEMATOCRIT 44.8 % (36.0-47.0); HEMOGLOBIN 14.9 g/dL (12.0-15.5); LYMPHOCYTES % (AUTO) 23.3 % (13-45); MEAN CORPUSCULAR HEMOGLOBIN 30.2 pg (27.0-33.4); MEAN CORPUSCULAR HGB CONC 33.3 g/dL (32.0-36.0); MEAN CORPUSCULAR VOLUME 91 fl (80-97); MONOCYTES % (AUTO) 10.8 % (3-13); PLATELET COUNT 192 10^3/uL (150-450); RED BLOOD COUNT 4.93 10^6/uL (3.72-5.28); RED CELL DISTRIBUTION WIDTH 15.1 % (11.5-14.0); SEGMENTED NEUTROPHILS % (AUTO) 58.5 % (42-78); TOTAL CELLS COUNTED % (AUTO) 100 %; WHITE BLOOD COUNT 5.8 10^3/uL (4.0-10.5)
[2017-04-30 13:29] LABS: APPEARANCE,URINE SLIGHTLY-CLOUDY; BILIRUBIN,URINE NEGATIVE (NEGATIVE); COLOR,URINE YELLOW; GLUCOSE, URINE NEGATIVE (NEGATIVE); KETONES,URINE NEGATIVE (NEGATIVE); LEUKOCYTE ESTERASE,URINE LARGE (NEGATIVE); NITRITE,URINE NEGATIVE (NEGATIVE); PROTEIN,URINE NEGATIVE (NEGATIVE); URINE SPECIFIC GRAVITY 1.021; UROBILINOGEN,URINE NEGATIVE mg/dL (<2.0)
[2017-04-30 13:45] LABS: ALBUMIN 4.1 g/dL (3.5-5.0); ANION GAP 11 (5-19); BLOOD UREA NITROGEN 38 mg/dL (7-20); CALCIUM 10.4 mg/dL (8.4-10.2); CARBON DIOXIDE 31 mmol/L (22-30); CHLORIDE 101 mmol/L (98-107); GLUCOSE 152 mg/dL (75-110); POTASSIUM 4.3 mmol/L (3.6-5.0); SODIUM 142.6 mmol/L (137-145)
[2017-05-01 12:38] LABS: MICROALBUMIN URINE 13.5 ug/mL (Not Estab.)
== END ==
LOC: OD 12:31
PROVIDERS: ATTEND Internal Medicine Nephrology
DX: N18.3 Chronic kidney disease, stage 3 (moderate) (principal); D50.9 Iron deficiency anemia, unspecified; E55.9 Vitamin D deficiency, unspecified
CPT/HCPCS: 36415; 80048; 81001; 82040; 82043; 82306; 82570; 83970; 84100; 85025

== ENCOUNTER → 2017-06-04 | Outpatient (CLI) | payer MEDICARE, OTHER ==
[2017-06-04 13:42] LABS: ANION GAP 12 (5-19); BLOOD UREA NITROGEN 34 mg/dL (7-20); CALCIUM 10.1 mg/dL (8.4-10.2); CARBON DIOXIDE 29 mmol/L (22-30); CHLORIDE 99 mmol/L (98-107); GLUCOSE 160 mg/dL (75-110); MAGNESIUM 1.4 mg/dL (1.6-2.3); POTASSIUM 3.7 mmol/L (3.6-5.0); SODIUM 139.8 mmol/L (137-145)
== END ==
LOC: OD 12:35
PROVIDERS: ATTEND Internal Medicine Nephrology
DX: N17.9 Acute kidney failure, unspecified (principal); E83.52 Hypercalcemia
CPT/HCPCS: 36415; 80048; 83735

== ENCOUNTER → 2017-08-26 | Outpatient (CLI) | payer MEDICARE, OTHER ==
[2017-08-26 12:15] LABS: ANION GAP 12 (5-19); BLOOD UREA NITROGEN 40 mg/dL (7-20); CALCIUM 10.1 mg/dL (8.4-10.2); CARBON DIOXIDE 31 mmol/L (22-30); CHLORIDE 100 mmol/L (98-107); GLUCOSE 104 mg/dL (75-110); POTASSIUM 3.7 mmol/L (3.6-5.0); SODIUM 142.8 mmol/L (137-145)
== END ==
LOC: OD 11:16
PROVIDERS: ATTEND Internal Medicine Nephrology
DX: N18.3 Chronic kidney disease, stage 3 (moderate) (principal); E83.52 Hypercalcemia; E83.42 Hypomagnesemia
CPT/HCPCS: 36415; 80048; 82306; 83735

== ENCOUNTER → 2017-11-29 | Outpatient (CLI) | payer MEDICARE, OTHER ==
[2017-11-29 13:01] LABS: ABSOLUTE BASOPHILS # (AUTO) 0.1 10^3/uL (0.0-0.2); ABSOLUTE EOSINOPHILS # (AUTO) 0.6 10^3/uL (0.0-0.6); ABSOLUTE LYMPHOCYTES (AUTO) 1.7 10^3/uL (0.5-4.7); ABSOLUTE NEUT (AUTO) 4.3 10^3/uL (1.7-8.2); BASOPHILS % (AUTO) 0.9 % (0-2); EOSINOPHILS % (AUTO) 8.4 % (0-6); HEMATOCRIT 45.5 % (36.0-47.0); HEMOGLOBIN 15.7 g/dL (12.0-15.5); LYMPHOCYTES % (AUTO) 22.5 % (13-45); MEAN CORPUSCULAR HEMOGLOBIN 30.8 pg (27.0-33.4); MEAN CORPUSCULAR HGB CONC 34.4 g/dL (32.0-36.0); MEAN CORPUSCULAR VOLUME 90 fl (80-97); MONOCYTES % (AUTO) 12.4 % (3-13); PLATELET COUNT 194 10^3/uL (150-450); RED BLOOD COUNT 5.08 10^6/uL (3.72-5.28); RED CELL DISTRIBUTION WIDTH 14.2 % (11.5-14.0); SEGMENTED NEUTROPHILS % (AUTO) 55.8 % (42-78); TOTAL CELLS COUNTED % (AUTO) 100 %; WHITE BLOOD COUNT 7.7 10^3/uL (4.0-10.5)
[2017-11-29 13:29] LABS: ALBUMIN 4.1 g/dL (3.5-5.0); ANION GAP 13 (5-19); BLOOD UREA NITROGEN 43 mg/dL (7-20); CARBON DIOXIDE 31 mmol/L (22-30); CHLORIDE 98 mmol/L (98-107); GLUCOSE 180 mg/dL (75-110); PHOSPHORUS 3.6 mg/dL (2.5-4.5); SODIUM 142.1 mmol/L (137-145)
[2017-11-29 13:38] LABS: CALCIUM 10.1 mg/dL (8.4-10.2); POTASSIUM 3.8 mmol/L (3.6-5.0)
[2017-11-29 13:57] LABS: APPEARANCE,URINE CLEAR; BILIRUBIN,URINE NEGATIVE (NEGATIVE); COLOR,URINE YELLOW; GLUCOSE, URINE NEGATIVE (NEGATIVE); KETONES,URINE NEGATIVE (NEGATIVE); LEUKOCYTE ESTERASE,URINE SMALL (NEGATIVE); NITRITE,URINE NEGATIVE (NEGATIVE); PROTEIN,URINE NEGATIVE (NEGATIVE); URINE SPECIFIC GRAVITY 1.011; UROBILINOGEN,URINE NEGATIVE mg/dL (<2.0)
[2017-11-30 11:38] LABS: CREATININE URINE 78.1 mg/dL (Not Estab.); MICROALBUMIN URINE 4.5 ug/mL (Not Estab.)
== END ==
LOC: OD 12:21
PROVIDERS: ATTEND Internal Medicine Nephrology
DX: N18.3 Chronic kidney disease, stage 3 (moderate) (principal)
CPT/HCPCS: 36415; 80048; 81001; 82040; 82043; 82306; 82570; 83970; 84100; 85025

== ENCOUNTER 2018-04-18 21:24 | Emergency (ER) | payer MEDICARE, OTHER ==
[2018-04-18] MEDS ORDERED: FAMOTIDINE 20 MG TABLET PO ONE (21:42)
--- NOTE | 2018-04-18 21:43 | ER Document Report ---
ED General - General Stated Complaint: CHEST PAIN Time Seen by Provider: 04/18/18 21:32 Notes: Patient is a 78-year-old female that comes to the emergency department for chief complaint of pain under her left breast that goes to her mid chest that started just prior to arrival, she states she felt nauseated before it happened and then she felt sharp pain which resolved on the ambulance when given nitroglycerin. She was also given 325 mg of aspirin. She states she felt fine during the day except did have some reflux symptoms with frequent belching throughout the day. She did not have pain until just prior to arrival. She denies vomiting, fever, shortness of breath. Past medical history includes NH with stent 10 years ago, stress test 5 years ago, type 2 diabetes, CHF, she is on Coumadin. She follows with cardiology Dr. Herrera. TRAVEL OUTSIDE OF THE [place] IN LAST 30 DAYS: No - Related Data Allergies/Adverse Reactions: cefazolin sodium [From Anc] Allergy (Verified 10/20/16 08:35) Iodinated Contrast- Oral and IV Dye [IV Dye, Iodine Containing] Allergy (Verified 06/09/13 16:16) Durfnyh-Oxl-Iek Reductase Inhibitor Allergy (Verified 10/19/16 22:54) Sulfa (Sulfonamide Antibiotics) Allergy (Verified 06/09/13 16:16) Past Medical History - General Information source: Patient - Social History Smoking Status: Never Smoker Frequency of alcohol use: None Drug Abuse: None Lives with: Family Family History: Reviewed & Not Pertinent - Past Medical History Cardiac Medical History: Reports: Hx Congestive Heart Failure - Diastolic, Hx Co ronary Artery Disease, Hx Heart Attack, Hx Hypercholesterolemia, Hx Hypertension Denies: Hx DVT, Hx Pulmonary Embolism Pulmonary Medical History: Reports: Hx Bronchitis, Hx COPD, Hx Sleep Apnea - Not compliant with CPAP mask due to discomfort. Denies: Hx Tuberculosis Endocrine Medical History: Reports: Hx Diabetes Mellitus Type 2. Denies: Hx Hyp erthyroidism, Hx Hypothyroidism Renal/ Medical History: Denies: Hx Peritoneal Dialysis GI Medical History: Reports: Hx Gastroesophageal Reflux Disease. Denies: Hx Cirrhosis, Hx Hepatitis Musculoskeletal Medical History: Reports Hx Arthritis Psychiatric Medical History: Reports: Hx Anxiety, Hx Depression Infectious Medical History: Denies: Hx Hepatitis Past Surgical History: Reports: Hx Cardiac Catheterization, Hx Cardiac Surgery - paced, Hx Hysterectomy, Hx Pacemaker, Hx Tonsillectomy - Immunizations Immunizations up to date: No Hx Diphtheria, Pertussis, Tetanus Vaccination: Yes Hx Pneumococcal Vaccination: 04/22/11 Review of Systems - Review of Systems Constitutional: No symptoms reported EENT: No symptoms reported Cardiovascular: See HPI Respiratory: No symptoms reported Gastrointestinal: See HPI Genitourinary: No symptoms reported Female Genitourinary: No symptoms reported Musculoskeletal: No symptoms reported Skin: No symptoms reported Hematologic/Lymphatic: No symptoms reported Neurological/Psychological: No symptoms reported Physical Exam - Vital signs Vitals: Resp Pulse Ox 20 97 04/18/18 21:29 04/18/18 21:29 - Notes Notes: GENERAL: Alert, interacts well. No acute distress. HEAD: Normocephalic, atraumatic. EYES: Pupils equal, round, and reactive to light. Extraocular movements intact. ENT: Oral mucosa moist, tongue midline. Oropharynx unremarkable. Airway patent. Nares patent, no nasal septal hematoma, TM's intact. NECK: Full range of motion. Supple. Trachea midline. LUNGS: Clear to auscultation bilaterally, no wheezes, rales, or rhonchi. No respiratory distress. No noted chest pain on palpation. HEART: Regular rate and rhythm. No murmur ABDOMEN: Mild left upper quadrant pain, minimal epigastric pain, remaining abdomen is soft and benign. GENITOURINARY: Deferred EXTREMITIES: Moves all 4 extremities spontaneously. No edema, normal radial and dorsalis pedis pulses bilaterally. No cyanosis. BACK: no cervical, thoracic, lumbar midline tenderness. No saddle anesthesia, normal distal neurovascular exam. NEUROLOGICAL: Alert and oriented x3. Normal speech. [cranial nerves II through XII grossly intact]. PSYCH: Normal affect, normal mood. SKIN: Warm, dry, normal turgor. No rashes or lesions noted. Course - Re-evaluation Re-evalutation: EKG showing ventricular paced rhythm without significant change from prior. Chest x-ray unremarkable. CBC shows no leukocytosis, mildly elevated hemoglobin, chemistry shows mild chronic kidney disease without significant change from prior. Patient asked to urinalysis to be performed, this showed bacteria without infection, culture was placed. She does not have dysuria. Patient does have some left lower quadrant tenderness on examination with pain radiating to epigastric area, frequent belching, and nausea prior to the pain. Pain resolved with nitroglycerin, I actually suspect that she had esophageal spasm and has a gastritis component. She was given Pepcid along with the aspirin she received. Patient asymptomatic on reevaluation. Initial troponin negative. Troponin cycled and also negative. Because of patient's medical history, age, chest pain, despite atypical chest pain with suspected gastrointestinal component, I did recommend admission to the hospital for telemetry observation and potential stress testing. Patient declined, she states she wants to be either transferred to [place] to be with her security and compliance project manager or to follow-up with her security and compliance project manager in the office on Saturday. I did call and speak with Dr. Campos, on-call for Dr. Herrera, reviewed patient's case, symptoms, workup in detail. At this time no further recommendations except for patient to be seen in the office on Saturday, she is to call on Saturday morning, and note was placed for this to be followed through. Patient is to return if she has chest pain or any other concerning symptoms that develop. I discussed this in detail with patient. Patient states understanding and agreement with plan. Went home with a friend. Stable at time of discharge. - Vital Signs Vital signs: Temp Pulse Resp BP Pulse Ox 12 147/64 H 97 04/19/18 03:01 04/19/18 03:01 04/19/18 03:01 - Laboratory Result Diagrams: 04/18/18 21:35 04/18/18 21:35 Laboratory results interpreted by me: 04/18/18 04/18/18 04/18/18 21:35 21:35 21:35 RBC 5.43 H Hgb 16.2 H Hct 47.2 H RDW 16.3 H PT 25.0 H BUN 50 H Creatinine 1.78 H Est GFR ( Amer) 33 L Est GFR (Non-Af Amer) 27 L Glucose 160 H AST 42 H Lipase 323.2 H Discharge - Discharge Clinical Impression: Upper abdominal pain Chest pain Qualifiers: Chest pain type: unspecified Qualified Code(s): R07.9 - Chest pain, unspecified Condition: Stable Disposition: HOME, SELF-CARE Additional Instructions: Your workup at this point is reassuring. I spoke with Dr. Campos, security and compliance project manager on-call for Dr. Javier hurtado. Recommendation is for you to call your security and compliance project manager office in the morning on Saturday to be seen in the office on Saturday. Return if you worsen including chest pain, passing out, vomiting, or any other concerning or worsening symptoms. Referrals: BRANDON CARR MD [Primary Care Provider] - Follow up as needed
[2018-04-18 21:53] LABS: ABSOLUTE EOSINOPHILS # (AUTO) 0.3 10^3/uL (0.0-0.6); ABSOLUTE LYMPHOCYTES (AUTO) 1.5 10^3/uL (0.5-4.7); ABSOLUTE MONOCYTES (AUTO) 0.8 10^3/uL (0.1-1.4); ABSOLUTE NEUT (AUTO) 4.2 10^3/uL (1.7-8.2); BASOPHILS % (AUTO) 0.5 % (0-2); EOSINOPHILS % (AUTO) 4.7 % (0-6); HEMATOCRIT 47.2 % (36.0-47.0); HEMOGLOBIN 16.2 g/dL (12.0-15.5); MEAN CORPUSCULAR HEMOGLOBIN 29.9 pg (27.0-33.4); MEAN CORPUSCULAR HGB CONC 34.4 g/dL (32.0-36.0); MEAN CORPUSCULAR VOLUME 87 fl (80-97); MONOCYTES % (AUTO) 11.9 % (3-13); PLATELET COUNT 227 10^3/uL (150-450); RED BLOOD COUNT 5.43 10^6/uL (3.72-5.28); RED CELL DISTRIBUTION WIDTH 16.3 % (11.5-14.0); SEGMENTED NEUTROPHILS % (AUTO) 60.9 % (42-78); TOTAL CELLS COUNTED % (AUTO) 100 %; WHITE BLOOD COUNT 6.9 10^3/uL (4.0-10.5)
[2018-04-18 21:59] LABS: INTERNATIONAL RATION (INR) 2.14
[2018-04-18 22:16] LABS: ALANINE AMINOTRANSFERASE 32 U/L (9-52); ALBUMIN 4.4 g/dL (3.5-5.0); ALKALINE PHOSPHATASE 73 U/L (38-126); ANION GAP 13 (5-19); ASPARTATE AMINO TRANSFERASE 42 U/L (14-36); BILIRUBIN,DIRECT 0.2 mg/dL (0.0-0.4); BILIRUBIN,TOTAL 0.7 mg/dL (0.2-1.3); BLOOD UREA NITROGEN 50 mg/dL (7-20); CALCIUM 10.2 mg/dL (8.4-10.2); CARBON DIOXIDE 27 mmol/L (22-30); CHLORIDE 101 mmol/L (98-107); GLUCOSE 160 mg/dL (75-110); LIPASE 323.2 U/L (23-300); POTASSIUM 4.3 mmol/L (3.6-5.0); SODIUM 140.7 mmol/L (137-145); TOTAL PROTEIN 7.7 g/dL (6.3-8.2)
--- NOTE | 2018-04-18 22:17 | RADIOLOGY REPORT (SQ) ---
EXAM DESCRIPTION: XR CHEST 1 VIEW COMPLETED DATE/TME: 04/18/2018 21:40 CLINICAL HISTORY: 78 years, Female, chest pain COMPARISON: 10/19/2016 chest x-ray NUMBER OF VIEWS: 1 TECHNIQUE: Little view chest LIMITATIONS: None. FINDINGS: Cardiomegaly with stable postsurgical change. Osteopenia. Lungs are clear. No pneumothorax IMPRESSION: Cardiomegaly. Lungs are clear copyright 2011 [employer]- All Rights Reserved
[2018-04-18 23:58] LABS: APPEARANCE,URINE CLEAR; BILIRUBIN,URINE NEGATIVE (NEGATIVE); COLOR,URINE YELLOW; GLUCOSE, URINE NEGATIVE (NEGATIVE); KETONES,URINE NEGATIVE (NEGATIVE); LEUKOCYTE ESTERASE,URINE NEGATIVE (NEGATIVE); NITRITE,URINE NEGATIVE (NEGATIVE); PROTEIN,URINE NEGATIVE (NEGATIVE); URINE SPECIFIC GRAVITY 1.012; UROBILINOGEN,URINE NEGATIVE mg/dL (<2.0)
[2018-04-19 03:33] VITALS: BP 147/64
--- NOTE | 2018-04-19 12:54 | EKG REPORT ---
SEVERITY:- ABNORMAL ECG - VENTRICULAR-PACED RHYTHM : Confirmed by: Yue Saha 19-Apr-2018 12:53:21
== END 2018-04-19 03:34 | disposition home or self-care (01) ==
LOC: ER 21:24
DX: R10.10 Upper abdominal pain, unspecified (principal); R07.9 Chest pain, unspecified; I50.9 Heart failure, unspecified; I25.10 Atherosclerotic heart disease of native coronary artery without angina pectoris; E78.00 Pure hypercholesterolemia, unspecified; I11.0 Hypertensive heart disease with heart failure; E11.9 Type 2 diabetes mellitus without complications; Z88.2 Allergy status to sulfonamides; Z95.0 Presence of cardiac pacemaker; Z90.710 Acquired absence of both cervix and uterus; I25.2 Old myocardial infarction
CPT/HCPCS: 93005; 99285; 36415; 87086; 83690; 85025; 85610; 80053; 81001; 84484; 71045; 93010; A9270

== ENCOUNTER → 2018-08-22 | Day surgery (SDC) | payer MEDICARE, OTHER ==
[~2018-08-22] MED LIST: LIDOCAINE 1% INJ-PF (10 MG/ML) 30 ML SDV ONE
--- NOTE | 2018-08-22 13:48 | RADIOLOGY REPORT (SQ) ---
EXAM DESCRIPTION: CT LEFT LOWER EXTREMITY WITH COMPLETED DATE/TIME: 08/22/2018 1:48 pm REASON FOR STUDY: M25.562 PAIN IN LEFT KNEE M25.562 PAIN IN LEFT KNEE COMPARISON: None. TECHNIQUE: Post arthrographic imaging performed through the left knee with reformatted coronal and s agittal imaging windowed for bone and soft tissues. All CT scanners at this facility use dose modulation, iterative reconstruction, and/or weight based d osing when appropriate to reduce radiation dose to as low as reasonably achievable (ALARA). [facility]: Dose Right [facility]: CareDose [facility]: Dose Right [facility]: Teradose 4D [facility]: [employer] Technologies RADIATION DOSE: CT Rad equipment meets quality standard of care and radiation dose reduction techniq ues were employed. CTDIvol: 4.1 mGy. DLP: 102 mGy-cm. mGy. LIMITATIONS: None. FINDINGS: SOFT TISSUES: No regional soft tissue masses or radiopaque foreign body noted. BONES: No suspicious bone lesion. No fracture. JOINT DISTENTION: Adequate distention with contrast. No intra-articular bodies. 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 Very mild medial and lateral compartment chondromalacia is present without significan t bony osteophyte or subcortical cyst formation MENISCI: Medial and lateral menisci air intact. OTHER: No ACL or PCL tear is identified. 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 No cruciate ligament tear. Menisci grossly intact. TECHNICAL DOCUMENTATION: JOB ID: [id number] Quality ID # [id number]: Final reports with documentation of one or more dose reduction techniques (e.g., Au tomated exposure control, adjustment of the mA and/or kV according to patient size, use of iterative reconstruction technique) 2010 [employer]- All Rights Reserved Reading location - IP/workstation name: [email or web address]
--- NOTE | 2018-08-22 13:48 | RADIOLOGY REPORT (SQ) ---
EXAM DESCRIPTION: FLUORO/NEEDLE PLACEMENT COMPLETED DATE/TIME: 08/22/2018 1:26 pm REASON FOR STUDY: M25.562 PAIN IN LEFT KNEE M25.562 PAIN IN LEFT KNEE COMPARISON: None. FLUOROSCOPY TIME: 0.2 minutes of fluoroscopy was used. 2 images saved to PACS. LIMITATIONS: None. PROCEDURE: Procedure, risks, benefits and alternatives explained to patient who then gave written co nsent. The left knee was marked and a time-out was called for correct marking verification. Entry s ite marked using fluoroscopic guidance. Knee prepped and draped using sterile technique. Local anes thesia achieved using 1% lidocaine injection. Hypodermic needle introduced into the joint space unde r direct fluoroscopic visualization. Non-ionic contrast instilled to confirm intra-articular positio n. Additional dilute non-ionic contrast instilled. Needle removed and entry site covered with steri le bandage. No immediate complications noted. TECHNIQUE: Digital images acquired during fluoroscopy and stored on PACS. Patient immediately take n to the CT suite for additional imaging. INJECTION LOCATION: Left knee CONTRAST TYPE AND AMOUNT: 35 mL Omnipaque 300 saline mixture IMPRESSION: SUCCESSFUL NEEDLE PLACEMENT AND INJECTION FOR LEFT KNEE CT ARTHROGRAM. COMMENT: Quality ID 145: Final reports for procedures using fluoroscopy that document radiation exp osure indices, or exposure time and number of fluorographic images (if radiation exposure indices are not available) TECHNICAL DOCUMENTATION: JOB ID: [id number] [employer]- All Rights Reserved Reading location - IP/workstation name: [email or web address] [id number]
--- NOTE | 2018-08-22 14:02 | RADIOLOGY REPORT (SQ) ---
EXAM DESCRIPTION: FLUORO/NEEDLE PLACEMENT; ARTHRO KNEE NJX CNTRST CT/MRI COMPLETED DATE/TIME: 08/22/2018 1:26 pm REASON FOR STUDY: M25.562 PAIN IN LEFT KNEE M25.562 PAIN IN LEFT KNEE COMPARISON: None. FLUOROSCOPY TIME: 0.2 minutes of fluoroscopy used. 2 images saved to PACS. LIMITATIONS: None. PROCEDURE: Procedure, risks, benefits and alternatives explained to patient who then gave written co nsent. The left knee was marked and a time-out was called for correct marking verification. Entry s ite marked using fluoroscopic guidance. Knee prepped and draped using sterile technique. Local anes thesia achieved using 1% lidocaine injection. Hypodermic needle introduced into the joint space unde r direct fluoroscopic visualization. Non-ionic contrast instilled to confirm intra-articular positio n. Additional dilute non-ionic contrast instilled. Needle removed and entry site covered with steri le bandage. No immediate complications noted. TECHNIQUE: Digital images acquired during fluoroscopy and stored on PACS. Patient immediately take n to the CT suite for additional imaging. INJECTION LOCATION: Left knee. CONTRAST TYPE AND AMOUNT: 35 mL Omnipaque saline mixture IMPRESSION: SUCCESSFUL NEEDLE PLACEMENT AND INJECTION FOR LEFT KNEE CT ARTHROGRAM. COMMENT: Quality ID 145: Final reports for procedures using fluoroscopy that document radiation exp osure indices, or exposure time and number of fluorographic images (if radiation exposure indices are not available) TECHNICAL DOCUMENTATION: JOB ID: [id number] [employer]- All Rights Reserved Reading location - IP/workstation name: [email or web address] [id number]
== END ==
LOC: RAD 12:12
PROVIDERS: ATTEND Orthopaedic Surgery
DX: M25.562 Pain in left knee (principal)
CPT/HCPCS: 27369; 77002; 73701; J3490

== ENCOUNTER → 2018-09-09 | Outpatient (CLI) | payer MEDICARE, OTHER ==
[2018-09-09 13:58] LABS: ABSOLUTE BASOPHILS # (AUTO) 0.1 10^3/uL (0.0-0.2); ABSOLUTE EOSINOPHILS # (AUTO) 0.3 10^3/uL (0.0-0.6); ABSOLUTE LYMPHOCYTES (AUTO) 1.9 10^3/uL (0.5-4.7); ABSOLUTE MONOCYTES (AUTO) 0.9 10^3/uL (0.1-1.4); ABSOLUTE NEUT (AUTO) 5.1 10^3/uL (1.7-8.2); BASOPHILS % (AUTO) 0.6 % (0-2); EOSINOPHILS % (AUTO) 4.1 % (0-6); HEMATOCRIT 46.7 % (36.0-47.0); HEMOGLOBIN 15.7 g/dL (12.0-15.5); LYMPHOCYTES % (AUTO) 22.7 % (13-45); MEAN CORPUSCULAR HEMOGLOBIN 28.7 pg (27.0-33.4); MEAN CORPUSCULAR HGB CONC 33.6 g/dL (32.0-36.0); MEAN CORPUSCULAR VOLUME 85 fl (80-97); MONOCYTES % (AUTO) 10.5 % (3-13); PLATELET COUNT 252 10^3/uL (150-450); RED BLOOD COUNT 5.48 10^6/uL (3.72-5.28); RED CELL DISTRIBUTION WIDTH 15.5 % (11.5-14.0); SEGMENTED NEUTROPHILS % (AUTO) 62.1 % (42-78); TOTAL CELLS COUNTED % (AUTO) 100 %; WHITE BLOOD COUNT 8.3 10^3/uL (4.0-10.5)
[2018-09-09 14:12] LABS: ALBUMIN 4.3 g/dL (3.5-5.0); ANION GAP 11 (5-19); BLOOD UREA NITROGEN 43 mg/dL (7-20); CALCIUM 10.4 mg/dL (8.4-10.2); CARBON DIOXIDE 33 mmol/L (22-30); CHLORIDE 97 mmol/L (98-107); GLUCOSE 113 mg/dL (75-110); PHOSPHORUS 3.2 mg/dL (2.5-4.5); POTASSIUM 3.9 mmol/L (3.6-5.0); SODIUM 141.4 mmol/L (137-145)
[2018-09-09 14:36] LABS: APPEARANCE,URINE SLIGHTLY-CLOUDY; BILIRUBIN,URINE NEGATIVE (NEGATIVE); COLOR,URINE YELLOW; GLUCOSE, URINE NEGATIVE (NEGATIVE); KETONES,URINE NEGATIVE (NEGATIVE); LEUKOCYTE ESTERASE,URINE NEGATIVE (NEGATIVE); NITRITE,URINE NEGATIVE (NEGATIVE); PROTEIN,URINE NEGATIVE (NEGATIVE); URINE SPECIFIC GRAVITY 1.011; UROBILINOGEN,URINE NEGATIVE mg/dL (<2.0)
[2018-09-10 12:37] LABS: CREATININE URINE 86.2 mg/dL (Not Estab.); MICROALBUMIN URINE 16.4 ug/mL (Not Estab.)
== END ==
LOC: OD 13:12
PROVIDERS: ATTEND Internal Medicine Nephrology
DX: I12.9 Hypertensive chronic kidney disease with stage 1 through stage 4 chronic kidney disease, or unspecified chronic kidney disease (principal); N18.3 Chronic kidney disease, stage 3 (moderate); E11.22 Type 2 diabetes mellitus with diabetic chronic kidney disease; E55.9 Vitamin D deficiency, unspecified; E83.40 Disorders of magnesium metabolism, unspecified
CPT/HCPCS: 36415; 80048; 81001; 82040; 82043; 82306; 82570; 83970; 84100; 85025

== ENCOUNTER → 2018-12-09 | Outpatient (CLI) | payer MEDICARE, OTHER ==
[2018-12-09 16:46] LABS: BLOOD UREA NITROGEN 35 mg/dL (7-20); CALCIUM 9.5 mg/dL (8.4-10.2); CARBON DIOXIDE 26 mmol/L (22-30); GLUCOSE 160 mg/dL (75-110); POTASSIUM 3.5 mmol/L (3.6-5.0)
[2018-12-09 16:48] LABS: ANION GAP 13 (5-19); CHLORIDE 102 mmol/L (98-107)
== END ==
LOC: OD 15:38
PROVIDERS: ATTEND Internal Medicine Nephrology
DX: E11.22 Type 2 diabetes mellitus with diabetic chronic kidney disease (principal); I12.9 Hypertensive chronic kidney disease with stage 1 through stage 4 chronic kidney disease, or unspecified chronic kidney disease; N18.4 Chronic kidney disease, stage 4 (severe); E87.5 Hyperkalemia
CPT/HCPCS: 36415; 80048

== ENCOUNTER 2019-03-09 15:46 | Inpatient (IN) | payer MEDICARE, OTHER ==
[2019-03-09 16:48] LABS: ABSOLUTE BASOPHILS # (AUTO) 0.1 10^3/uL (0.0-0.2); ABSOLUTE EOSINOPHILS # (AUTO) 0.3 10^3/uL (0.0-0.6); ABSOLUTE LYMPHOCYTES (AUTO) 1.3 10^3/uL (0.5-4.7); ABSOLUTE NEUT (AUTO) 6.2 10^3/uL (1.7-8.2); BASOPHILS % (AUTO) 0.9 % (0-2); EOSINOPHILS % (AUTO) 3.7 % (0-6); HEMOGLOBIN 12.4 g/dL (12.0-15.5); LYMPHOCYTES % (AUTO) 15.1 % (13-45); MEAN CORPUSCULAR HEMOGLOBIN 29.9 pg (27.0-33.4); MEAN CORPUSCULAR HGB CONC 33.7 g/dL (32.0-36.0); MEAN CORPUSCULAR VOLUME 89 fl (80-97); MONOCYTES % (AUTO) 11.1 % (3-13); PLATELET COUNT 199 10^3/uL (150-450); RED BLOOD COUNT 4.16 10^6/uL (3.72-5.28); RED CELL DISTRIBUTION WIDTH 14.4 % (11.5-14.0); SEGMENTED NEUTROPHILS % (AUTO) 69.2 % (42-78); TOTAL CELLS COUNTED % (AUTO) 100 %; WHITE BLOOD COUNT 8.9 10^3/uL (4.0-10.5)
[2019-03-09 17:06] LABS: ALBUMIN 3.8 g/dL (3.5-5.0); ALKALINE PHOSPHATASE 71 U/L (38-126); ANION GAP 11 (5-19); ASPARTATE AMINO TRANSFERASE 30 U/L (14-36); BILIRUBIN,TOTAL 1.3 mg/dL (0.2-1.3); BLOOD UREA NITROGEN 35 mg/dL (7-20); CALCIUM 9.2 mg/dL (8.4-10.2); CARBON DIOXIDE 29 mmol/L (22-30); CHLORIDE 99 mmol/L (98-107); CREATINE KINASE 56 U/L (30-135); GLUCOSE 236 mg/dL (75-110); POTASSIUM 3.2 mmol/L (3.6-5.0)
--- NOTE | 2019-03-09 17:16 | ER Document Report ---
Entered by JAIME PEPPER SCRIBE 03/09/19 [id number] Acting as scribe for:LASHON SAHA MD ED Extremity Problem, Lower - General Chief Complaint: Leg Pain Stated Complaint: LEFT LEG PAIN Time Seen by Provider: 03/09/19 16:02 Primary Care Provider: BRANDON CARR MD [Primary Care Provider] - Follow up as needed Mode of Arrival: Ambulatory Information source: Patient Notes: This 79-year-old female patient presents to the emergency department today with complaints of not being able to walk. Patient states that she has osteoarthritic knees but this pain today is much more severe than normal. Patient has had this pain since yesterday. Patient states both of her knees hurt but her left is much worse than the right. Patient states she usually walks with a walker. Patient states she has had steroid injections in her knees that did not really work, she was told she needed a left knee replacement but she said she did not want to have one. Pertinent PMHx/PSHx: Myocardial infarction 11 years ago, mitral valve repair after the myocardial infarction. Last stress test 6 years ago. Last echo done was last week. Peripheral vascular disease with 3 vascular stents placed in the right lower extremity. Chronic atrial fibrillation. Pacemaker. 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 Anticoagulated on Coumadin. COPD. Patient did have a CT arthrogram of the left knee and in August 22, 2018 showing severe chondromalacia patella. Pertinent ROS is the chronic left knee pain which is recently acutely worse making it impossible for the patient to stand and walk with her walker. Patient has been having nosebleeds recently, was not aware of the benefit of placing Vaseline in her nostrils at bedtime. PCP: [facility] Pan Was[facility] is Dr. Herrera Patient's last stress test was in 2011. Patient had an echo done at the [facility] [place] last week. TRAVEL OUTSIDE OF THE [place] IN LAST 30 DAYS: No - Related Data Allergies/Adverse Reactions: Iodinated Contrast Media [IV Dye, Iodine Containing] Allergy (Verified 06/09/13 16:16) Jffraou-Stz-Nvv Reductase Inhibitor Allergy (Verified 10/19/16 22:54) Sulfa (Sulfonamide Antibiotics) Allergy (Verified 06/09/13 16:16) Home Medications: mag ox, zaroxolynm lasix, fish oil, vit c, pantoprazole, warfarin, cilostazol, potassium, ferrous sulfate, gabapentin, ranitidine Past Medical History - General Information source: Patient - Social History Smoking Status: Never Smoker Cigarette use (# per day): No Chew tobacco use (# tins/day): No Smoking Education Provided: No Frequency of alcohol use: None Drug Abuse: None Lives with: Alone Family History: Reviewed & Not Pertinent Patient has suicidal ideation: No Patient has homicidal ideation: No - Past Medical History Cardiac Medical History: Reports: Hx Congestive Heart Failure - Diastolic, Hx Coronary Artery Disease, Hx Heart Attack - 2006, Hx Hypercholesterolemia, Hx Hypertension, Hx Peripheral Vascular Disease Pulmonary Medical History: Reports: Hx Bronchitis, Hx COPD, Hx Sleep Apnea - Not compliant with CPAP mask due to discomfort. Neurological Medical History: Reports: Hx Cerebrovascular Accident, Other - TIAs Endocrine Medical History: Reports: Hx Diabetes Mellitus Type 2 GI Medical History: Reports: Hx Gastroesophageal Reflux Disease Musculoskeletal Medical History: Reports Hx Arthritis Psychiatric Medical History: Reports: Hx Anxiety, Hx Depression Past Surgical History: Reports: Hx Cardiac Catheterization, Hx Cardiac Surgery - Mitral valve repair after the myocardial infarction in 2006, Hx Hysterectomy, Hx Pacemaker, Hx Tonsillectomy, Hx Vascular Surgery - 3 stents placed in the right groin and thigh and popliteal region - Immunizations Immunizations up to date: No Hx Diphtheria, Pertussis, Tetanus Vaccination: Yes Hx Pneumococcal Vaccination: 04/22/11 Review of Systems - Review of Systems Constitutional: No symptoms reported EENT: Other - Nosebleeds occurring recently, and occasionally she will cough up some blood that ran down in her throat. She was not aware of the benefit of Vaseline in the nostrils at bedtime. Cardiovascular: No symptoms reported Respiratory: No symptoms reported Gastrointestinal: No symptoms reported Genitourinary: No symptoms reported Female Genitourinary: Post menopausal Musculoskeletal: See HPI, Joint pain Skin: No symptoms reported Hematologic/Lymphatic: No symptoms reported Neurological/Psychological: No symptoms reported -: Yes All other systems reviewed and negative Physical Exam - Vital signs Vitals: Temp Pulse Resp BP Pulse Ox 98.9 F 70 18 129/39 H 95 03/09/19 16:10 03/09/19 16:10 03/09/19 16:10 03/09/19 16:10 03/09/19 16:10 - Notes Notes: Physical Exam: General: Alert, appears well. HEENT: Normocephalic. Atraumatic. PERRL. Extraocular movements intact. Oropharynx clear. Neck: Supple. Non-tender. Respiratory: No respiratory distress. Clear and equal breath sounds bilaterally. Cardiovascular: Regular rate and rhythm. Abdominal: Obese. Non-tender. No distension. Normal Bowel Sounds. Back: No gross abnormalities. Extremities: Moves all four extremities. Upper extremities: Normal inspection. Normal ROM. Lower extremities: No knee effusion. No lateral joint line tenderness with palpation. Bilateral patella prominence. Left patella is very tender with palpation. Pain with movement of left patella. Neurological: Normal cognition. AAOx4. Normal speech. Psychological: Normal affect. Normal Mood. Skin: Warm. Dry. Normal color. Course - Re-evaluation Re-evalutation: 03/09/19 17:[address] arthrogram done on 08/22/2018 showed high-grade chondromalacia in the medial patellar facet. The case was discussed with Dr. Knapp who had ordered that CT arthrogram. He states that he feels the patient most likely needs surgical treatment, as her difficulty ambulating will continue to decline. He requests that I have the hospitalist service admit the patient and he will consult. - Vital Signs Vital signs: Temp Pulse Resp BP Pulse Ox 98.9 F 70 18 129/39 H 95 03/09/19 16:10 03/09/19 16:10 03/09/19 16:10 03/09/19 16:10 03/09/19 16:10 - Laboratory Result Diagrams: 03/09/19 16:39 03/09/19 16:39 Laboratory results interpreted by me: 03/09/19 03/09/19 03/09/19 16:39 16:39 17:28 RDW 14.4 H PT 22.1 H Potassium 3.2 L BUN 35 H Creatinine 1.35 H Est GFR ( Amer) 46 L Est GFR (MDRD) Non-Af 38 L Glucose 236 H - Consults Dr. Delacruz Time consulted: 18:20 Consulted provider: will come to ER Discharge - Discharge Clinical Impression: Chondromalacia patellae of left knee, Unable to bear weight, Left anterior knee pain, Anticoagulated on Coumadin, [place] current use of anticoagulant therapy, Obstructive sleep apnea syndrome, Pacemaker, Renal insufficiency Coronary artery disease Qualifiers: Coronary Disease-Associated Artery/Lesion type: unspecified vessel or lesion type [place] vs. transplanted heart: [place] heart Associated angina: without angina Qualified Code(s): I25.10 - Atherosclerotic heart disease of [place] coronary artery without angina pectoris Diabetes mellitus type II, controlled Qualifiers: Diabetes mellitus fdc insulin use: with fdc use Diabetes mellitus complication status: with circulatory complication Diabetes mellitus complication detail: with other circulatory complications Qualified Code(s): E11.59 - Type 2 diabetes mellitus with other circulatory complications; Z79.4 - MCC (current) use of insulin COPD (chronic obstructive pulmonary disease) Qualifiers: COPD type: unspecified COPD Qualified Code(s): J44.9 - Chronic obstructive pulmonary disease, unspecified Atrial fibrillation Qualifiers: Atrial fibrillation type: longstanding persistent Qualified Code(s): I48.11 - Longstanding persistent atrial fibrillation Condition: Stable Disposition: ADMITTED OBSERVATION Admitting Provider: [facility] (Hospitalist) Unit Admitted: Medical Floor Referrals: BRANDON CARR MD [Primary Care Provider] - Follow up as needed Scribe Attestation: 03/09/19 18:26 I personally performed the services described in the documentation, reviewed and edited the documentation which was dictated to the scribe in my presence, and it accurately records my words and actions. I personally performed the services described in the documentation, reviewed and edited the documentation which was dictated to the scribe in my presence, and it accurately records my words and actions.
[2019-03-09 18:00] LABS: PROTHROMBIN TIME 22.1 SEC (11.4-15.4)
--- NOTE | 2019-03-09 19:01 | RADIOLOGY REPORT (SQ) ---
EXAM DESCRIPTION: CHEST SINGLE VIEW COMPLETED DATE/TIME: 03/09/2019 6:37 pm REASON FOR STUDY: Preop COMPARISON: 04/18/2018 EXAM PARAMETERS: NUMBER OF VIEWS: One view. TECHNIQUE: Single frontal radiographic view of the chest acquired. RADIATION DOSE: NA LIMITATIONS: None. FINDINGS: LUNGS AND PLEURA: No opacities, masses or pneumothorax. No pleural effusion. MEDIASTINUM AND HILAR STRUCTURES: No masses. Contour normal. HEART AND VASCULAR STRUCTURES: Heart normal in size. Normal vasculature. BONES: No acute findings. HARDWARE: Pacemaker. Heart valve. OTHER: No other significant finding. IMPRESSION: NO ACUTE RADIOGRAPHIC FINDING IN THE CHEST. TECHNICAL DOCUMENTATION: JOB ID: [id number] [employer]- All Rights Reserved Reading location - IP/workstation name: [email or web address]
--- NOTE | 2019-03-09 19:03 | PDOC H&P ---
History of Present Illness Admission Date/PCP: BRANDON CARR MD History of Present Illness: MISAEL BRUNO is a 79 year old female with multiple medical problems who was in her usual state of health until her arthritis in her left knee started acting up more yesterday. She normally gets around with a walker but said her knee started hurting her so bad yesterday she has not been able to walk. She had been to see Dr. Knapp earlier in the year who wanted to do a complete knee repl acement on her but she did not want to get it done and so she is been getting injections in her left knee, most recently was 2 months ago. She has a history of COPD, says she is not a smoker but her was a heavy smoker. She is she has a history of coronary artery disease, insulin-dependent diabetes mellitus, chronic kidney disease, peripheral vascular disease with stenting in the right lower extremity. None of her chronic medical conditions are acutely exacerbated. She said in the ER the physician contacted got Dr. Mason who said he would do surgery. Past Medical History Cardiac Medical History: Reports: Congestive Heart Failure - Diastolic, Coronary Artery Disease, Myocardial Infarction - 2006, Hyperlipidema, Hypertension, Peripheral Vascular Disease Denies: DVT, Pulmonary Embolism Pulmonary Medical History: Reports: Bronchitis, Chronic Obstructive Pulmonary Disease (COPD), Sleep Apnea - Not compliant with CPAP mask due to discomfort. Denies: Tuberculosis Neurological Medical History: Reports: Other - TIAs Endocrine Medical History: Reports: Diabetes Mellitus Type 1, Diabetes Mellitus Type 2 Denies: Hyperthyroidism, Hypothyroidism GI Medical History: Reports: Gastroesophageal Reflux Disease Denies: Cirrhosis, Hepatitis Musculoskeltal Medical History: Reports: Arthritis Psychiatric Medical History: Reports: Depression Past Surgical History Past Surgical History: Reports: Cardiac Catheterization, Hysterectomy, Pacemaker, Tonsillectomy, Vascular Surgery - 3 stents placed in the right groin and thigh and popliteal region Social History Lives with: Alone Smoking Status: Never Smoker Electronic Cigarette use?: No Frequency of Alcohol Use: None Hx Recreational Drug Use: No Drugs: None Hx Prescription Drug Abuse: No Family History Family History: Reviewed & Not Pertinent Parental Family History Reviewed: Yes Children Family History Reviewed: Yes Sibling(s) Family History Reviewed.: Yes Medication/Allergy Home Medications: Omeprazole [Prilosec 20 mg Capsule] 20 mg PO BID 09/07/11 Albuterol Sulfate [Albuterol Sulfate Hfa] 1 - 2 puff IH Q4HP PRN 06/09/13 Butalb/Acetaminophen/Caffeine [Fioricet (50-325-40 mg) Tablet] 1 tab PO Q4HP PRN 06/09/13 Calcium Carbonate/Vitamin D3 [Calcium 600-Vit D3 200 Tablet] 2 tab PO DAILY 06/09/13 Cyclosporine [Restasis Droperette] 1 each OP BID 06/09/13 Diphenhydramine HCl [Benadryl] 25 mg PO Q6 PRN 06/09/13 Escitalopram Oxalate [Lexapro] 10 mg PO QHS 06/09/13 Fexofenadine HCl [Iris] 180 mg PO DAILY 06/09/13 Gabapentin [Neurontin] 600 mg PO TID 06/09/13 Hydrocodone/Acetaminophen [Elizabeth 5-325 mg Tablet] 1 tab PO BID PRN 06/09/13 Nitroglycerin 0.4 mg SL Q5M PRN 06/09/13 Royal-3 Fatty Acids/Fish Oil [Fish Oil 1,[address]] 1 each PO BID 06/09/13 Paricalcitol [Zemplar] 1 mcg PO QAM 06/09/13 Clotrimazole 1% Topical [Lotrimin 1% Topical Soln 10 ml] 1 applic TP DAILY 09/11/14 Diazepam [Valium 5 mg Tablet] 2.5 mg PO BID PRN 09/11/14 Docusate Sodium [Colace 100 mg Capsule] 100 mg PO DAILY 09/11/14 Epinephrine [Epipen 2-Alfred] 0.3 mg IM PRN PRN 09/11/14 Ferrous Sulfate [Feosol] 325 mg PO DAILY 09/11/14 Furosemide [Lasix 40 mg Tablet] 40 mg PO QAM 09/11/14 Insulin Aspart [Novolog Insulin (Aspart) 100 unit/mL] 20 unit SUBCUT AC 09/11/14 Ketoconazole 120 ml TP DAILY 09/11/14 Ketoconazole [Nizoral] 1 bottle TOP DAILY 09/11/14 Ascorbic Acid [Vitamin C 500 mg Tablet] 500 mg PO DAILY 10/20/16 Cholecalciferol (Vitamin D3) [Vitamin D3] 3 cap PO DAILY 10/20/16 Fluticasone Propionate 2 sprays IN QHS PRN 10/20/16 Guaifenesin [Mucinex] 600 mg PO Q12HP PRN 10/20/16 Metoprolol Succinate [Toprol-Xl 25 mg Tab.sr] 1 tab PO QHS 10/20/16 Warfarin Sodium [Coumadin 5 mg Tablet] 5 mg PO SUTUTHSA 10/20/16 Warfarin Sodium [Coumadin 7.5 mg Tablet] 7.5 mg PO MOWEFR 10/20/16 Insulin Glargine,Hum.rec.anlog [Lantus Insulin 100 Unit/mL Insulin Pen] 50 unit SUBCUT DAILY #1 insuln.pen 10/21/16 Insulin Glargine,Hum.rec.anlog [Lantus] 30 unit SQ QHS #1 vial 10/21/16 Magnesium Oxide 400 mg PO BID #100 tablet 10/21/16 Potassium Chloride 20 meq PO ASDIR PRN #30 tablet.er 10/21/16 Allergies/Adverse Reactions: Iodinated Contrast Media [IV Dye, Iodine Containing] Allergy (Verified 06/09/13 16:16) Nhexjuf-Mje-Oeg Reductase Inhibitor Allergy (Verified 10/19/16 22:54) Sulfa (Sulfonamide Antibiotics) Allergy (Verified 06/09/13 16:16) Review of Systems All systems: reviewed and no additional remarkable complaints except as stated - All systems were reviewed and were negative except as noted in the HPI Physical Exam Vital Signs: Temp Pulse Resp BP Pulse Ox 98.9 F 70 18 129/39 H 95 03/09/19 16:10 03/09/19 16:10 03/09/19 16:10 03/09/19 16:10 03/09/19 16:10 Intake & Output 03/08/19 03/09/19 03/10/19 06:59 06:59 06:59 Weight 96.7 kg General appearance: PRESENT: no acute distress, cooperative, disheveled, mo rbidly obese Head exam: PRESENT: atraumatic, normocephalic Eye exam: PRESENT: EOMI, PERRLA. ABSENT: conjunctival injection, nystagmus, scleral icterus Ear exam: PRESENT: normal external ear exam Mouth exam: PRESENT: moist, neck supple Throat exam: ABSENT: post pharyngeal erythema Neck exam: PRESENT: full ROM. ABSENT: carotid bruit, JVD, lymphadenopathy, meningismus, tenderness, thyromegaly Respiratory exam: PRESENT: clear to auscultation keo, symmetrical, unlabored. ABSENT: accessory muscle use, chest wall tenderness, crackles, prolonged expiratory phas, rhonchi, tachypnea, wheezes Cardiovascular exam: PRESENT: irregular rhythm, +S1, +S2 Pulses: PRESENT: normal carotid pulses, normal dorsalis pedis pul Vascular exam: PRESENT: normal capillary refill GI/Abdominal exam: PRESENT: normal bowel sounds, soft. ABSENT: distended, guarding, rebound, tenderness Extremities exam: ABSENT: clubbing, joint swelling, pedal edema Musculoskeletal exam: PRESENT: normal inspection, other - I barely brush her leg and she flanks like it hurt, but when she was distracted it did not seem to hurt at all. ABSENT: deformity Neurological exam: PRESENT: alert, awake, oriented to person, oriented to place, oriented to time, oriented to situation, CN II-XII grossly intact. ABSENT: motor sensory deficit Psychiatric exam: PRESENT: anxious Skin exam: PRESENT: dry, warm Results Laboratory Results: 03/09/19 16:39 03/09/19 16:39 03/09/19 03/09/19 16:39 16:39 WBC 8.9 RBC 4.16 Hgb 12.4 Hct 37.0 MCV 89 MCH 29.9 MCHC 33.7 RDW 14.4 H Plt Count 199 Seg Neutrophils % 69.2 Sodium 138.6 Potassium 3.2 L Chloride 99 Carbon Dioxide 29 Anion Gap 11 BUN 35 H Creatinine 1.35 H Est GFR ( Amer) 46 L Glucose 236 H Calcium 9.2 Total Bilirubin 1.3 AST 30 Alkaline Phosphatase 71 Total Protein 7.0 Albumin 3.8 03/09/19 16:39 Creatine Kinase 56 Assessment and Plan - Diagnosis (1) Arthritis of left knee Is this a current diagnosis for this admission?: Yes (2) Diabetes mellitus type II, controlled Qualifiers: Diabetes mellitus detention insulin use: with detention use Diabetes mellitus complication status: with circulatory complication Diabetes mellitus complication detail: with other circulatory complications Qualified Code(s): E11.59 - Type 2 diabetes mellitus with other circulatory complications; Z79.4 - emt intermediate (current) use of insulin Is this a current diagnosis for this admission?: Yes (3) Pacemaker Is this a current diagnosis for this admission?: Yes (4) Atrial fibrillation Qualifiers: Atrial fibrillation type: longstanding persistent Qualified Code(s): I48.11 - Longstanding persistent atrial fibrillation Is this a current diagnosis for this admission?: Yes (5) CKD (chronic kidney disease), stage III Is this a current diagnosis for this admission?: Yes (6) emt intermediate current use of anticoagulant therapy Is this a current diagnosis for this admission?: Yes (7) Obesity (BMI 30-39.9) Is this a current diagnosis for this admission?: Yes - Plan Summary Summary: She has a host of chronic medical problems, none of which are acutely exacerbated. We will continue her home medications. We will hold her warfarin and cover her with Lovenox until she can have surgery and then we should be able to restart her warfarin. We will have her evaluated by physical therapy after the surgery to see what level of activity she will be able to tolerate. Placing her may be a bit of a challenge. - Time Time Spent with patient: 35 or more minutes
[2019-03-09 19:56] LABS: APPEARANCE,URINE CLEAR; BILIRUBIN,URINE NEGATIVE (NEGATIVE); COLOR,URINE STRAW; GLUCOSE, URINE NEGATIVE (NEGATIVE); KETONES,URINE NEGATIVE (NEGATIVE); LEUKOCYTE ESTERASE,URINE NEGATIVE (NEGATIVE); NITRITE,URINE NEGATIVE (NEGATIVE); PROTEIN,URINE NEGATIVE (NEGATIVE); URINE SPECIFIC GRAVITY 1.008; UROBILINOGEN,URINE NEGATIVE mg/dL (<2.0)
[2019-03-09] MEDS: ENOXAPARIN SODIUM INJ 100 MG/1 ML DISP.SYRIN SUBCUT SCH (22:02)
[2019-03-10] MEDS: ACETAMINOPHEN 325 MG TABLET PO PRN (06:10)
--- NOTE | 2019-03-10 07:27 | PDOC CONSULTATION ---
Consultation Consult Date: 03/10/19 Provider Consulted: GABE MAYA Consult reason:: Left knee pain History of Present Illness Admission Date/PCP: 03/09/19 19:53 BRANDON CARR MD History of Present Illness: MISAEL BRUNO is a 79 year old female Patient is an 79-year-old white female who I followed as an outpatient for evaluation of left knee pain. The patient underwent multiple studies including a CT arthrogram because she was unable to tolerate an MRI scan secondary to pacemaker. The results of the imaging studies were consistent with moderate to severe patellofemoral degenerative changes but preservation of the tibial articulation. The patient now presents emergency room accompanied by her family being unable to walk because of severe left knee pain. Past Medical History Cardiac Medical History: Reports: Congestive Heart Failure - Diastolic, Coronary Artery Disease, Myocardial Infarction - 2006, Hyperlipidema, Hypertension, Peripheral Vascular Disease Denies: DVT, Pulmonary Embolism Pulmonary Medical History: Reports: Bronchitis, Chronic Obstructive Pulmonary Disease (COPD), Sleep Apnea - Not compliant with CPAP mask due to discomfort. Denies: Tuberculosis Neurological Medical History: Reports: Other - TIAs Endocrine Medical History: Reports: Diabetes Mellitus Type 1, Diabetes Mellitus Type 2 Denies: Hyperthyroidism, Hypothyroidism GI Medical History: Reports: Gastroesophageal Reflux Disease Denies: Cirrhosis, Hepatitis Musculoskeltal Medical History: Reports: Arthritis Psychiatric Medical History: Reports: Depression Past Surgical History Past Surgical History: Reports: Cardiac Catheterization, Hysterectomy, Pacemaker, Tonsillectomy, Vascular Surgery - 3 stents placed in the right groin and thigh and popliteal region Social History Information Source: Patient, [facility] Office, [facility] Records Lives with: Alone Smoking Status: Never Smoker Electronic Cigarette use?: No Frequency of Alcohol Use: None Hx Recreational Drug Use: No Drugs: None Hx Prescription Drug Abuse: No Family History Family History: Reviewed & Not Pertinent Parental Family History Reviewed: No Children Family History Reviewed: No Sibling(s) Family History Reviewed.: No Medication/Allergy Home Medications: Ascorbic Acid [Vitamin C 500 mg Tablet] 500 mg PO MOWEFR@1000 03/09/19 Biotin 1,000 mcg PO DAILY 03/09/19 Cholecalciferol (Vitamin D3) [Vitamin D3 1000 Unit Tablet] 1,000 unit PO MOWEFR@1000 03/09/19 Cilostazol 50 mg PO BID 03/09/19 Ferrous Sulfate [Feosol 325 mg Tablet] 325 mg PO MOWEFR@1000 03/09/19 Furosemide [Lasix 40 mg Tablet] 40 mg PO BID 03/09/19 Gabapentin [Neurontin] 600 mg PO Q12 03/09/19 Magnesium Oxide [Mag-Ox 400 mg Tablet] 800 mg PO DAILY 03/09/19 Metolazone [Zaroxolyn 2.5 mg Tablet] 2.5 mg PO TUTHSA@1000 03/09/19 [place]-3/Dha/Epa/Fish Oil [Fish Oil 1,000 mg Softgel] 1,000 mg PO DAILY 03/09/19 Pantoprazole Sodium [Protonix [address] Tablet] 40 mg PO Q6AM 03/09/19 Potassium Chloride [Klor-Con 10 Meq Capsule ER] 10 meq PO BID 03/09/19 Ranitidine HCl [Zantac] 150 mg PO BID 03/09/19 Warfarin Sodium [Coumadin 2.5 mg Tablet] 2.5 mg PO MOWEFR@1000 03/09/19 Warfarin Sodium [Coumadin 5 mg Tablet] 5 mg PO MOWEFR@1000 03/09/19 Allergies/Adverse Reactions: Iodinated Contrast Media [IV Dye, Iodine Containing] Allergy (Verified 06/09/13 16:16) Jpluowt-Fno-Iom Reductase Inhibitor Allergy (Verified 10/19/16 22:54) Sulfa (Sulfonamide Antibiotics) Allergy (Verified 06/09/13 16:16) Review of Systems All systems: as per PMH Physical Exam Vital Signs: Temp Pulse Resp BP Pulse Ox 37.6 C 70 20 137/50 H 93 03/09/19 22:04 03/10/19 06:15 03/10/19 06:15 03/10/19 06:15 03/10/19 06:15 Intake & Output 03/09/19 03/10/19 03/11/19 06:59 06:59 06:59 Weight 96.7 kg Physical Exam: Overweight middle-aged white female lying on ER gurney in moderate distress. Left lower extremity is flexed and elevated on pillows. General appearance: PRESENT: mild distress, well-developed, well-nourished Head exam: PRESENT: normocephalic Respiratory exam: PRESENT: unlabored Cardiovascular exam: PRESENT: RRR, other - paced GI/Abdominal exam: PRESENT: soft Rectal exam: PRESENT: deferred Extremities exam: PRESENT: other - Left knee is globally tender to palpation. Modest effusion. Pain with passive range of motion. No clear instability. Neurological exam: PRESENT: alert, awake, oriented to person, oriented to place, oriented to time, oriented to situation. ABSENT: motor sensory deficit Psychiatric exam: PRESENT: appropriate affect, normal mood. ABSENT: homicidal ideation, suicidal ideation Skin exam: PRESENT: dry, intact, warm. ABSENT: cyanosis, rash Results Laboratory Results: 03/09/19 16:39 03/09/19 16:39 03/09/19 03/09/19 03/09/19 16:39 16:39 19:26 WBC 8.9 RBC 4.16 Hgb 12.4 Hct 37.0 MCV 89 MCH 29.9 MCHC 33.7 RDW 14.4 H Plt Count 199 Seg Neutrophils % 69.2 Sodium 138.6 Potassium 3.2 L Chloride 99 Carbon Dioxide 29 Anion Gap 11 BUN 35 H Creatinine 1.35 H Est GFR ( Amer) 46 L Glucose 236 H Calcium 9.2 Total Bilirubin 1.3 AST 30 Alkaline Phosphatase 71 Total Protein 7.0 Albumin 3.8 Urine Color STRAW Urine Appearance CLEAR Urine pH 5.0 Ur Specific [place] 1.008 Urine Protein NEGATIVE Urine Glucose (UA) NEGATIVE Urine Ketones NEGATIVE Urine Blood SMALL H Urine Nitrite NEGATIVE Ur Leukocyte Esterase NEGATIVE Urine WBC (Auto) 0 Urine RBC (Auto) 1 03/09/19 16:39 Creatine Kinase 56 Impressions: Chest X-Ray 03/09/19 18:23 IMPRESSION: NO ACUTE RADIOGRAPHIC FINDING IN THE CHEST. Status: Imported from PACS Assessment & Plan - Diagnosis (1) Arthritis of left knee Is this a current diagnosis for this admission?: Yes Plan: 79-year-old white female who lives independently and now presents to the emergency room with progressive left knee pain and functional disability with inability to walk. I think from an orthopedic standpoint what I would have to offer the patient would be total knee arthroplasty which is a procedure that takes approximately 45 minutes under regional anesthesia with the patient ambulating on the day of surgery. However she has multiple comorbidities that would need to be addressed prior to considering surgical intervention. The first is to transition her from Coumadin to a Lovenox bridge. The second would be for cardiac clearance. Potentially we can perform all the necessary preoperative evaluations and preparations and proceed with a knee arthroplasty on Saturday. - Time Time Spent: 50 to 70 Minutes Anticipated discharge: SNF Within: Other
--- NOTE | 2019-03-10 07:39 | EKG REPORT ---
SEVERITY:- ABNORMAL ECG - VENTRICULAR-PACED RHYTHM : Confirmed by: Baljit Barney MD 10-Mar-2019 07:38:45
[2019-03-10] MEDS: ENOXAPARIN SODIUM INJ 100 MG/1 ML DISP.SYRIN SUBCUT SCH ×2 (10:09→22:19)
--- NOTE | 2019-03-10 16:41 | PDOC PROGRESS REPORT ---
Subjective Progress Note for:: 03/10/19 Subjective:: No adverse events overnight. No new complaints. Vital signs been stable. Eating and drinking without difficulty. She said the surgeon told her probably be Saturday before she would have her surgery. Reason For Visit: LEFT KNEE ARTHRITIS Physical Exam Vital Signs: Temp Pulse Resp BP Pulse Ox 98 F 70 18 139/52 H 95 03/10/19 11:56 03/10/19 11:56 03/10/19 11:56 03/10/19 11:56 03/10/19 11:56 Intake & Output 03/09/19 03/10/19 03/11/19 06:59 06:59 06:59 Weight 96.7 kg 91.5 kg General appearance: PRESENT: no acute distress, cooperative, disheveled, morbidly obese Respiratory exam: PRESENT: clear to auscultation keo, symmetrical, unlabored. ABSENT: accessory muscle use, chest wall tenderness, crackles, prolonged expiratory phas, rhonchi, tachypnea, wheezes Cardiovascular exam: PRESENT: irregular rhythm, +S1, +S2 Pulses: PRESENT: normal carotid pulses, normal dorsalis pedis pul Vascular exam: PRESENT: normal capillary refill GI/Abdominal exam: PRESENT: normal bowel sounds, soft. ABSENT: distended, guarding, rebound, tenderness Extremities exam: ABSENT: clubbing, joint swelling, pedal edema Musculoskeletal exam: PRESENT: normal inspection. ABSENT: deformity Neurological exam: PRESENT: alert, awake, oriented to person, oriented to place, oriented to time, oriented to situation Psychiatric exam: PRESENT: anxious Skin exam: PRESENT: dry, warm Results Laboratory Results: 03/09/19 16:39 03/09/19 16:39 03/09/19 03/09/19 03/09/19 16:39 16:39 19:26 WBC 8.9 RBC 4.16 Hgb 12.4 Hct 37.0 MCV 89 MCH 29.9 MCHC 33.7 RDW 14.4 H Plt Count 199 Seg Neutrophils % 69.2 Sodium 138.6 Potassium 3.2 L Chloride 99 Carbon Dioxide 29 Anion Gap 11 BUN 35 H Creatinine 1.35 H Est GFR ( Amer) 46 L Glucose 236 H Calcium 9.2 Total Bilirubin 1.3 AST 30 Alkaline Phosphatase 71 Total Protein 7.0 Albumin 3.8 Urine Color STRAW Urine Appearance CLEAR Urine pH 5.0 Ur Specific [place] 1.008 Urine Protein NEGATIVE Urine Glucose (UA) NEGATIVE Urine Ketones NEGATIVE Urine Blood SMALL H Urine Nitrite NEGATIVE Ur Leukocyte Esterase NEGATIVE Urine WBC (Auto) 0 Urine RBC (Auto) 1 03/09/19 16:39 Creatine Kinase 56 Impressions: Chest X-Ray 03/09/19 18:23 IMPRESSION: NO ACUTE RADIOGRAPHIC FINDING IN THE CHEST. Assessment and Plan - Diagnosis (1) Arthritis of left knee Is this a current diagnosis for this admission?: Yes Plan: Looks like she is going to stay here for an entire week to get a knee replacement (2) Diabetes mellitus type II, controlled Qualifiers: Diabetes mellitus mcc insulin use: with mcc use Diabetes mellitus complication status: with circulatory complication Diabetes mellitus complication detail: with other circulatory complications Qualified Code(s): E11.59 - Type 2 diabetes mellitus with other circulatory complications; Z79.4 - assisted (current) use of insulin Is this a current diagnosis for this admission?: Yes Plan: Continue her home medications of a diabetic diet (3) Pacemaker Is this a current diagnosis for this admission?: Yes (4) Atrial fibrillation Qualifiers: Atrial fibrillation type: longstanding persistent Qualified Code(s): I48.11 - Longstanding persistent atrial fibrillation Is this a current diagnosis for this admission?: Yes Plan: Continue rate control, warfarin being held, on Lovenox, will resume warfarin after surgery (5) CKD (chronic kidney disease), stage III Is this a current diagnosis for this admission?: Yes Plan: Stable in its usual range (6) emt intermediate current use of anticoagulant therapy Is this a current diagnosis for this admission?: Yes Plan: As noted above (7) Obesity (BMI 30-39.9) Is this a current diagnosis for this admission?: Yes Plan: Strongly encouraged lifestyle modification - Plan Summary Summary: She has a host of chronic medical problems, none of which are acutely exacerbated. We will continue her home medications. We will hold her warfarin and cover her with Lovenox until she can have surgery and then we should be able to restart her warfarin. We will have her evaluated by physical therapy after the surgery to see what level of activity she will be able to tolerate. Placing her may be a bit of a challenge. - Time Time Spent with patient: 15-24 minutes
[2019-03-10] MEDS ORDERED: GUAIFENESIN SYRP 200 MG/10 ML UDC PO PRN (22:11)
[2019-03-11] MEDS: ACETAMINOPHEN 325 MG TABLET PO PRN (00:01)
[2019-03-11 03:34] LABS: APPEARANCE,URINE CLEAR; BILIRUBIN,URINE NEGATIVE (NEGATIVE); COLOR,URINE YELLOW; GLUCOSE, URINE NEGATIVE (NEGATIVE); KETONES,URINE NEGATIVE (NEGATIVE); LEUKOCYTE ESTERASE,URINE NEGATIVE (NEGATIVE); NITRITE,URINE NEGATIVE (NEGATIVE); PROTEIN,URINE NEGATIVE (NEGATIVE); URINE SPECIFIC GRAVITY 1.014; UROBILINOGEN,URINE NEGATIVE mg/dL (<2.0)
[2019-03-11 07:22] LABS: HEMATOCRIT 36.3 % (36.0-47.0); HEMOGLOBIN 12.6 g/dL (12.0-15.5); MEAN CORPUSCULAR HEMOGLOBIN 30.3 pg (27.0-33.4); MEAN CORPUSCULAR HGB CONC 34.6 g/dL (32.0-36.0); MEAN CORPUSCULAR VOLUME 88 fl (80-97); PLATELET COUNT 199 10^3/uL (150-450); RED BLOOD COUNT 4.15 10^6/uL (3.72-5.28); WHITE BLOOD COUNT 6.9 10^3/uL (4.0-10.5)
[2019-03-11 07:37] LABS: INTERNATIONAL RATION (INR) 1.33; PROTHROMBIN TIME 16.6 SEC (11.4-15.4)
--- NOTE | 2019-03-11 09:03 | PDOC PROGRESS REPORT ---
Subjective Progress Note for:: 03/11/19 Reason For Visit: LEFT KNEE ARTHRITIS 79-year-old white female with multiple medical problems and ongoing left knee pain which precludes ambulation. Patient's been admitted largely for social reasons. She is being transitioned from Coumadin to Lovenox anticoagulation. Physical Exam Vital Signs: Temp Pulse Resp BP Pulse Ox 37.3 C 70 18 133/44 H 94 03/11/19 08:10 03/11/19 08:10 03/11/19 08:10 03/11/19 08:10 03/11/19 08:10 Intake & Output 03/10/19 03/11/19 03/12/19 06:59 06:59 06:59 Intake Total 1280 Output Total 350 Balance 930 Weight 96.7 kg 94.8 kg Physical Exam: Elderly white female lying in a hospital bed in minor distress. Respiratory exam: PRESENT: unlabored Extremities exam: PRESENT: other - Left knee held extended. There is no significant effusion. There is global tenderness to palpation. There is crepitus associate with active range of motion which is limited in both flexion and extension. Results Laboratory Results: 03/11/19 07:11 03/09/19 16:39 03/11/19 03/11/19 03:10 07:11 WBC 6.9 RBC 4.15 Hgb 12.6 Hct 36.3 MCV 88 MCH 30.3 MCHC 34.6 RDW 14.0 Plt Count 199 Urine Color YELLOW Urine Appearance CLEAR Urine pH 7.0 Ur Specific [place] 1.014 Urine Protein NEGATIVE Urine Glucose (UA) NEGATIVE Urine Ketones NEGATIVE Urine Blood SMALL H Urine Nitrite NEGATIVE Ur Leukocyte Esterase NEGATIVE Urine WBC (Auto) 0 Urine RBC (Auto) 1 03/09/19 16:39 Creatine Kinase 56 Impressions: Chest X-Ray 03/09/19 18:23 IMPRESSION: NO ACUTE RADIOGRAPHIC FINDING IN THE CHEST. Status: Imported from PACS Assessment & Plan - Diagnosis (1) Arthritis of left knee Is this a current diagnosis for this admission?: Yes Plan: Tentative plan for left knee arthroplasty on Saturday. I will discuss the patient with anesthesia today to make sure that they do not have any concerns about her cardiac status. - Time Time Spent with patient: 15-24 minutes Anticipated discharge: SNF Within: Other
[2019-03-11] MEDS: ENOXAPARIN SODIUM INJ 100 MG/1 ML DISP.SYRIN SUBCUT SCH ×2 (09:37→22:43)
--- NOTE | 2019-03-11 19:23 | PDOC PROGRESS REPORT ---
Subjective Progress Note for:: 03/11/19 Subjective:: No adverse events overnight. No new complaints. Vital signs been stable. Eating and drinking without difficulty. Reason For Visit: LEFT KNEE ARTHRITIS Physical Exam Vital Signs: Temp Pulse Resp BP Pulse Ox 98.2 F 73 18 150/52 H 96 03/11/19 16:09 03/11/19 16:09 03/11/19 16:09 03/11/19 16:09 03/11/19 16:09 Intake & Output 03/10/19 03/11/19 03/12/19 06:59 06:59 06:59 Intake Total 1280 720 Output Total 350 Balance 930 720 Weight 96.7 kg 94.8 kg General appearance: PRESENT: no acute distress, cooperative, disheveled, morbidly obese Respiratory exam: PRESENT: clear to auscultation keo, symmetrical, unlabored. ABSENT: accessory muscle use, chest wall tenderness, crackles, prolonged expiratory phas, rhonchi, tachypnea, wheezes Cardiovascular exam: PRESENT: irregular rhythm, +S1, +S2 Pulses: PRESENT: normal carotid pulses, normal dorsalis pedis pul Vascular exam: PRESENT: normal capillary refill GI/Abdominal exam: PRESENT: normal bowel sounds, soft. ABSENT: distended, guarding, rebound, tenderness Extremities exam: ABSENT: clubbing, joint swelling, pedal edema Musculoskeletal exam: PRESENT: normal inspection. ABSENT: deformity Neurological exam: PRESENT: alert, awake, oriented to person, oriented to place, oriented to time, oriented to situation Psychiatric exam: PRESENT: anxious Skin exam: PRESENT: dry, warm Results Laboratory Results: 03/11/19 07:11 03/09/19 16:39 03/11/19 03/11/19 03:10 07:11 WBC 6.9 RBC 4.15 Hgb 12.6 Hct 36.3 MCV 88 MCH 30.3 MCHC 34.6 RDW 14.0 Plt Count 199 Urine Color YELLOW Urine Appearance CLEAR Urine pH 7.0 Ur Specific [place] 1.014 Urine Protein NEGATIVE Urine Glucose (UA) NEGATIVE Urine Ketones NEGATIVE Urine Blood SMALL H Urine Nitrite NEGATIVE Ur Leukocyte Esterase NEGATIVE Urine WBC (Auto) 0 Urine RBC (Auto) 1 03/09/19 16:39 Creatine Kinase 56 Impressions: Chest X-Ray 03/09/19 18:23 IMPRESSION: NO ACUTE RADIOGRAPHIC FINDING IN THE CHEST. Assessment and Plan - Diagnosis (1) Arthritis of left knee Is this a current diagnosis for this admission?: Yes Plan: Looks like she is going to stay here for an entire week to get a knee replacement (2) Diabetes mellitus type II, controlled Qualifiers: Diabetes mellitus mcc insulin use: with watermelon harvesting supervisor use Diabetes mellitus complication status: with circulatory complication Diabetes mellitus complication detail: with other circulatory complications Qualified Code(s): E11.59 - Type 2 diabetes mellitus with other circulatory complications; Z79.4 - care home (current) use of insulin Is this a current diagnosis for this admission?: Yes Plan: Continue her home medications of a diabetic diet (3) Pacemaker Is this a current diagnosis for this admission?: Yes (4) Atrial fibrillation Qualifiers: Atrial fibrillation type: longstanding persistent Qualified Code(s): I48.11 - Longstanding persistent atrial fibrillation Is this a current diagnosis for this admission?: Yes Plan: Continue rate control, warfarin being held, on Lovenox, will resume warfarin after surgery (5) CKD (chronic kidney disease), stage III Is this a current diagnosis for this admission?: Yes Plan: Stable in its usual range (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 We will continue her home medications. We will hold her warfarin and cover her with Lovenox until she can have surgery and then we should be able to restart her warfarin. We will have her evaluated by physical therapy after the surgery to see what level of activity she will be able to tolerate. Placing her may be a bit of a challenge. - Time Time Spent with patient: 15-24 minutes
[2019-03-12 06:13] LABS: INTERNATIONAL RATION (INR) 1.24; PROTHROMBIN TIME 15.7 SEC (11.4-15.4)
--- NOTE | 2019-03-12 06:47 | PDOC PROGRESS REPORT ---
Subjective Progress Note for:: 03/12/19 Reason For Visit: LEFT KNEE ARTHRITIS 79-year-old white female with left knee pain and functional disability. Physical Exam Vital Signs: Temp Pulse Resp BP Pulse Ox 36.7 C 70 17 149/51 H 91 L 03/11/19 23:40 03/11/19 23:40 03/11/19 23:40 03/11/19 23:40 03/11/19 23:40 Intake & Output 03/10/19 03/11/19 03/12/19 06:59 06:59 06:59 Intake Total 1280 1295 Output Total 350 Balance 930 1295 Weight 96.7 kg 94.8 kg 90.1 kg General appearance: PRESENT: no acute distress, mild distress Respiratory exam: PRESENT: unlabored Cardiovascular exam: PRESENT: RRR Pulses: PRESENT: +1 pedal pulses bilateral GI/Abdominal exam: PRESENT: soft Rectal exam: PRESENT: deferred Neurological exam: PRESENT: alert, awake, oriented to person, oriented to place, oriented to time, oriented to situation. ABSENT: motor sensory deficit Psychiatric exam: PRESENT: appropriate affect, normal mood. ABSENT: homicidal ideation, suicidal ideation Results Laboratory Results: 03/11/19 07:11 03/09/19 16:39 03/11/19 07:11 WBC 6.9 RBC 4.15 Hgb 12.6 Hct 36.3 MCV 88 MCH 30.3 MCHC 34.6 RDW 14.0 Plt Count 199 03/09/19 16:39 Creatine Kinase 56 Impressions: Chest X-Ray 03/09/19 18:23 IMPRESSION: NO ACUTE RADIOGRAPHIC FINDING IN THE CHEST. Status: Imported from PACS Assessment & Plan - Diagnosis (1) Arthritis of left knee Is this a current diagnosis for this admission?: Yes Plan: Discussed the patient with Dr. Loera of anesthesia yesterday. He requested cardiac clearance prior to embarking upon surgical intervention. Discussed the situation again with this patient this morning who has decided that she is not interested in pursuing a knee arthroplasty but would rather have a knee arthroscopy. I explained her that the nature of her underlying knee problems is not amenable to arthroscopic surgery. At this point will click cancel plans for any type of knee arthroplasty. Likewise the plans for cardiac consultation probably can be discontinued as well. Plan would be to send the patient home with physical therapy. - Time Time Spent with patient: 15-24 minutes Anticipated discharge: Home with Homehealth
[2019-03-12] MEDS: ENOXAPARIN SODIUM INJ 100 MG/1 ML DISP.SYRIN SUBCUT SCH ×2 (09:16→22:11)
--- NOTE | 2019-03-12 17:10 | PDOC PROGRESS REPORT ---
Subjective Progress Note for:: 03/12/19 Subjective:: No adverse events overnight. No new complaints. Vital signs been stable. She tells me today that she has decided she is not going to do surgery. She said Dr. Knapp told her that the initial procedure she thought she was going to have would not do her any good and that she needed a knee replacement, and she has decided she does not want to have it done. Reason For Visit: LEFT KNEE ARTHRITIS Physical Exam Vital Signs: Temp Pulse Resp BP Pulse Ox 99.1 F 71 17 133/47 H 96 03/12/19 07:33 03/12/19 07:33 03/12/19 07:33 03/12/19 07:33 03/12/19 07:33 Intake & Output 03/11/19 03/12/19 03/13/19 06:59 06:59 06:59 Intake Total 1280 1295 320 Output Total 350 Balance 930 1295 320 Weight 94.8 kg 90.1 kg General appearance: PRESENT: no acute distress, cooperative, disheveled, morbidly obese Respiratory exam: PRESENT: clear to auscultation keo, symmetrical, unlabored. ABSENT: accessory muscle use, chest wall tenderness, crackles, prolonged expiratory phas, rhonchi, tachypnea, wheezes Cardiovascular exam: PRESENT: irregular rhythm, +S1, +S2 Pulses: PRESENT: normal carotid pulses, normal dorsalis pedis pul Vascular exam: PRESENT: normal capillary refill GI/Abdominal exam: PRESENT: normal bowel sounds, soft. ABSENT: distended, guarding, rebound, tenderness Extremities exam: ABSENT: clubbing, joint swelling, pedal edema Musculoskeletal exam: PRESENT: normal inspection. ABSENT: deformity Neurological exam: PRESENT: alert, awake, oriented to person, oriented to place, oriented to time, oriented to situation Psychiatric exam: PRESENT: anxious Skin exam: PRESENT: dry, warm Results Laboratory Results: 03/11/19 07:11 03/09/19 16:39 03/09/19 16:39 Creatine Kinase 56 Impressions: Chest X-Ray 03/09/19 18:23 IMPRESSION: NO ACUTE RADIOGRAPHIC FINDING IN THE CHEST. Assessment and Plan - Diagnosis (1) Arthritis of left knee Is this a current diagnosis for this admission?: Yes Plan: We were holding off on a physical therapy evaluation until after the surgery we thought she was going to have. Since she is not going to have it, we will going to go ahead and get another one. I will consult Dr. Jose Murphy to see if she is a candidate for acute rehab. She insists that she does not have any family that she can stay with until she is more mobile, at least no one locally. She says she has some family in [place]. She says that she has a family member, I believe it was her son, that lives locally but she does not consider him to be very reliable. (2) Diabetes mellitus type II, controlled Qualifiers: Diabetes mellitus intermediate designer insulin use: with intermediate designer use Diabetes mellitus complication status: with circulatory complication Diabetes mellitus complication detail: with other circulatory complications Qualified Code(s): E11.59 - Type 2 diabetes mellitus with other circulatory complications; Z79.4 - alf (current) use of insulin Is this a current diagnosis for this admission?: Yes Plan: Continue her home medications of a diabetic diet (3) Pacemaker Is this a current diagnosis for this admission?: Yes (4) Atrial fibrillation Qualifiers: Atrial fibrillation type: longstanding persistent Qualified Code(s): I48.11 - Longstanding persistent atrial fibrillation Is this a current diagnosis for this admission?: Yes Plan: Continue rate control, we were holding her Coumadin because she wanted to have surgery and we are bridging her with Lovenox, but since she is not going to have it were going to go ahead and restart her Coumadin. 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 We will continue her home medications. We will hold her warfarin and cover her with Lovenox until she can have surgery and then we should be able to restart her warfarin. We will have her evaluated by physical therapy after the surgery to see what level of activity she will be able to tolerate. Placing her may be a bit of a challenge. - Time Time Spent with patient: 15-24 minutes
[2019-03-12] MEDS ORDERED: (PENDING PHARMACY ID) (Ranitidine Hcl [Zantac] 150 MG) PO SCH (18:00)
[2019-03-12] MEDS: CILOSTAZOL 100 MG TABLET PO SCH (18:27)
[2019-03-12] MEDS: FAMOTIDINE 20 MG TABLET PO SCH (18:29)
[2019-03-12] MEDS: POTASSIUM CHLORIDE 10 MEQ TABLET.ER PO SCH (18:31)
[2019-03-12] MEDS: FUROSEMIDE 40 MG TABLET PO SCH (18:31)
[2019-03-12 21:46] LABS: HEMATOCRIT 36.4 % (36.0-47.0); HEMOGLOBIN 12.4 g/dL (12.0-15.5); MEAN CORPUSCULAR HEMOGLOBIN 30.1 pg (27.0-33.4); MEAN CORPUSCULAR HGB CONC 34.2 g/dL (32.0-36.0); MEAN CORPUSCULAR VOLUME 88 fl (80-97); PLATELET COUNT 221 10^3/uL (150-450); RED BLOOD COUNT 4.13 10^6/uL (3.72-5.28); RED CELL DISTRIBUTION WIDTH 13.7 % (11.5-14.0); WHITE BLOOD COUNT 6.9 10^3/uL (4.0-10.5)
[2019-03-12] MEDS: ACETAMINOPHEN 325 MG TABLET PO PRN (22:11)
[2019-03-12] MEDS: GABAPENTIN 300 MG CAPSULE PO SCH (22:11)
[2019-03-13] MEDS: ACETAMINOPHEN 325 MG TABLET PO PRN ×3 (06:06→22:55)
[2019-03-13] MEDS: PANTOPRAZOLE SODIUM 40 MG TABLET.DR PO SCH (06:06)
[2019-03-13 06:17] LABS: HEMATOCRIT 35.7 % (36.0-47.0); HEMOGLOBIN 12.3 g/dL (12.0-15.5); MEAN CORPUSCULAR HEMOGLOBIN 30.4 pg (27.0-33.4); MEAN CORPUSCULAR HGB CONC 34.5 g/dL (32.0-36.0); MEAN CORPUSCULAR VOLUME 88 fl (80-97); PLATELET COUNT 210 10^3/uL (150-450); RED BLOOD COUNT 4.06 10^6/uL (3.72-5.28); RED CELL DISTRIBUTION WIDTH 14.1 % (11.5-14.0); WHITE BLOOD COUNT 6.5 10^3/uL (4.0-10.5)
[2019-03-13 06:32] LABS: INTERNATIONAL RATION (INR) 1.13; PROTHROMBIN TIME 14.6 SEC (11.4-15.4)
--- NOTE | 2019-03-13 06:46 | PDOC PROGRESS REPORT ---
Subjective Progress Note for:: 03/13/19 Reason For Visit: LEFT KNEE ARTHRITIS 79-year-old white female in independent living status with acute onset knee pain which precluded her from walking and led to a hospital admission. Patient was undergoing preoperative evaluation prior to knee arthroplasty and is decided she is not interested in pursuing surgical intervention. Physical Exam Vital Signs: Temp Pulse Resp BP Pulse Ox 36.7 C 70 18 142/50 H 91 L 03/12/19 23:22 03/12/19 23:22 03/12/19 23:22 03/12/19 23:22 03/12/19 23:22 Intake & Output 03/11/19 03/12/19 03/13/19 06:59 06:59 06:59 Intake Total 1280 1295 320 Output Total 350 Balance 930 1295 320 Weight 94.8 kg 90.1 kg 92.5 kg General appearance: PRESENT: no acute distress Respiratory exam: PRESENT: unlabored Cardiovascular exam: PRESENT: RRR Extremities exam: PRESENT: other - Left knee significant less tender Results Laboratory Results: 03/13/19 06:00 03/09/19 16:39 03/12/19 03/13/19 21:25 06:00 WBC 6.9 6.5 RBC 4.13 4.06 Hgb 12.4 12.3 Hct 36.4 35.7 L MCV 88 88 MCH 30.1 30.4 MCHC 34.2 34.5 RDW 13.7 14.1 H Plt Count 221 210 03/09/19 16:39 Creatine Kinase 56 Impressions: Chest X-Ray 03/09/19 18:23 IMPRESSION: NO ACUTE RADIOGRAPHIC FINDING IN THE CHEST. Assessment & Plan - Diagnosis (1) Arthritis of left knee Is this a current diagnosis for this admission?: Yes Plan: Mobilized with physical therapy. Anticipate the need for senior care facility placement. Follow-up as an outpatient on a as needed basis. - Time Time Spent with patient: 15-24 minutes Anticipated discharge: SNF Within: when bed available
[2019-03-13] MEDS: MAGNESIUM OXIDE 400 MG TABLET PO SCH (09:58)
[2019-03-13] MEDS: CHOLECALCIFEROL (D3) 1,000 UNIT (25 MCG) TABLET PO SCH (09:59)
[2019-03-13] MEDS: ASCORBIC ACID 500 MG TABLET PO SCH (09:59)
[2019-03-13] MEDS: FAMOTIDINE 20 MG TABLET PO SCH ×2 (09:59→18:58)
[2019-03-13] MEDS: FUROSEMIDE 40 MG TABLET PO SCH ×2 (09:59→18:58)
[2019-03-13] MEDS: OMEGA-3 ACID ETHYL ESTERS 1 GM CAPSULE PO SCH (09:59)
[2019-03-13] MEDS: GABAPENTIN 300 MG CAPSULE PO SCH ×2 (09:59→22:54)
[2019-03-13] MEDS ORDERED: (PENDING PHARMACY ID) (Omega-3/Dha/Epa/Fish Oil [Fish Oil 1,000 Mg Softgel] 1,000 MG) PO SCH (10:00)
[2019-03-13] MEDS ORDERED: BIOTIN 1000 MCG PO SCH (10:00)
[2019-03-13] MEDS ORDERED: (PENDING PHARMACY ID) (Warfarin Sodium 5 MG) PO SCH (10:00)
[2019-03-13] MEDS: FERROUS SULFATE 325 MG TABLET PO SCH (10:03)
[2019-03-13] MEDS: ENOXAPARIN SODIUM INJ 100 MG/1 ML DISP.SYRIN SUBCUT SCH ×2 (10:04→23:00)
[2019-03-13] MEDS: POTASSIUM CHLORIDE 10 MEQ TABLET.ER PO SCH ×2 (10:04→18:58)
[2019-03-13] MEDS: CILOSTAZOL 100 MG TABLET PO SCH ×2 (10:06→19:00)
[2019-03-13] MEDS ORDERED: DEXTROSE 40% GEL 15 GM TUBE PO PRN ×2 (11:36)
[2019-03-13] MEDS ORDERED: DEXTROSE 50%-WATER 25 GM/50 ML DISP.SYRIN IV PRN ×2 (11:36)
[2019-03-13] MEDS ORDERED: GLUCAGON,HUMAN RECOMB 1 MG INJ IM PRN (11:36)
[2019-03-13 13:35] LABS: APPEARANCE,URINE SLIGHTLY-CLOUDY; BILIRUBIN,URINE NEGATIVE (NEGATIVE); COLOR,URINE YELLOW; GLUCOSE, URINE NEGATIVE (NEGATIVE); KETONES,URINE NEGATIVE (NEGATIVE); LEUKOCYTE ESTERASE,URINE NEGATIVE (NEGATIVE); NITRITE,URINE NEGATIVE (NEGATIVE); PROTEIN,URINE NEGATIVE (NEGATIVE); URINE SPECIFIC GRAVITY 1.005; UROBILINOGEN,URINE NEGATIVE mg/dL (<2.0)
[2019-03-13] MEDS ORDERED: INSULIN LISPRO 100 UNIT/ML 3 ML VIAL SUBCUT SCH (16:00)
--- NOTE | 2019-03-13 18:21 | PDOC PROGRESS REPORT ---
Subjective Progress Note for:: 03/13/19 Subjective:: No adverse events overnight. She worked with physical therapy today and required a lot of assistance to stand up and then she only walk 6 or 8 feet and had to sit back down because she said it was too painful. After some thought, she agreed to have surgery. Reason For Visit: LEFT KNEE ARTHRITIS Physical Exam Vital Signs: Temp Pulse Resp BP Pulse Ox 98.0 F 70 16 133/50 H 94 03/13/19 15:51 03/13/19 15:51 03/13/19 15:51 03/13/19 15:51 03/13/19 15:51 Intake & Output 03/12/19 03/13/19 03/14/19 06:59 06:59 06:59 Intake Total 1295 320 480 Balance 1295 320 480 Weight 90.1 kg 92.5 kg General appearance: PRESENT: no acute distress, cooperative, disheveled, morbidly obese Respiratory exam: PRESENT: clear to auscultation keo, symmetrical, unlabored. ABSENT: accessory muscle use, chest wall tenderness, crackles, prolonged expiratory phas, rhonchi, tachypnea, wheezes Cardiovascular exam: PRESENT: irregular rhythm, +S1, +S2 Pulses: PRESENT: normal carotid pulses, normal dorsalis pedis pul Vascular exam: PRESENT: normal capillary refill GI/Abdominal exam: PRESENT: normal bowel sounds, soft. ABSENT: distended, guarding, rebound, tenderness Extremities exam: ABSENT: clubbing, joint swelling, pedal edema Musculoskeletal exam: PRESENT: normal inspection. ABSENT: deformity Neurological exam: PRESENT: alert, awake, oriented to person, oriented to place, oriented to time, oriented to situation Psychiatric exam: PRESENT: anxious Skin exam: PRESENT: dry, warm Results Laboratory Results: 03/13/19 06:00 03/09/19 16:39 03/12/19 03/13/19 03/13/19 21:25 06:00 12:55 WBC 6.9 6.5 RBC 4.13 4.06 Hgb 12.4 12.3 Hct 36.4 35.7 L MCV 88 88 MCH 30.1 30.4 MCHC 34.2 34.5 RDW 13.7 14.1 H Plt Count 221 210 Urine Color YELLOW Urine Appearance SLIGHTLY-CLOUDY Urine pH 6.0 Ur Specific [place] 1.005 Urine Protein NEGATIVE Urine Glucose (UA) NEGATIVE Urine Ketones NEGATIVE Urine Blood SMALL H Urine Nitrite NEGATIVE Ur Leukocyte Esterase NEGATIVE Urine WBC (Auto) 1 Urine RBC (Auto) 3 03/09/19 16:39 Creatine Kinase 56 Impressions: Chest X-Ray 03/09/19 18:23 IMPRESSION: NO ACUTE RADIOGRAPHIC FINDING IN THE CHEST. Assessment and Plan - Diagnosis (1) Arthritis of left knee Is this a current diagnosis for this admission?: Yes Plan: She is now decided that she does want to have surgery. Dr. Knapp's note is that he had signed off the case, so I had patient's nurse give him a call and let him know that she changed her mind. (2) Diabetes mellitus type II, controlled Qualifiers: Diabetes mellitus correction insulin use: with correction use Diabetes mellitus complication status: with circulatory complication Diabetes mellitus complication detail: with other circulatory complications Qualified Code(s): E11.59 - Type 2 diabetes mellitus with other circulatory complications; Z79.4 - intermediate (current) use of insulin Is this a current diagnosis for this admission?: Yes Plan: She says she is been able to control it with diet, and she really does not want any insulin (3) Pacemaker Is this a current diagnosis for this admission?: Yes (4) Atrial fibrillation Qualifiers: Atrial fibrillation type: longstanding persistent Qualified Code(s): I48.11 - Longstanding persistent atrial fibrillation Is this a current diagnosis for this admission?: Yes Plan: Continue rate control, we were holding her Coumadin because she wanted to have surgery and we are bridging her with Lovenox, but since she is not going to have it were going to go ahead and restart her Coumadin. (5) CKD (chronic kidney disease), stage III Is this a current diagnosis for this admission?: Yes Plan: Stable in its usual range (6) intermediate current use of anticoagulant therapy Is this a current diagnosis for this admission?: Yes Plan: As noted above (7) Obesity (BMI 30-39.9) Is this a current diagnosis for this admission?: Yes Plan: Strongly encouraged lifestyle modification - Plan Summary Summary: She has a host of chronic medical problems, none of which are acutely exacerbated. We will continue her home medications. We will hold her warfarin and cover her with Lovenox until she can have surgery and then we should be able to restart her warfarin. We will have her evaluated by physical therapy after the surgery to see what level of activity she will be able to tolerate. Placing her may be a bit of a challenge. - Time Time Spent with patient: 15-24 minutes
[2019-03-13] MEDS ORDERED: WARFARIN SODIUM 7.5 MG TABLET PO SCH (22:00)
[2019-03-13] MEDS ORDERED: WARFARIN SODIUM 4 MG TABLET PO SCH (22:00)
[2019-03-13] MEDS ORDERED: INSULIN GLARGINE,HUM.REC.ANLOG 1,000 UNIT/10 ML VIAL (PYX) SUBCUT ONE (22:00)
[2019-03-13] MEDS: GUAIFENESIN SYRP 200 MG/10 ML UDC PO PRN (22:54)
[2019-03-14] MEDS: PANTOPRAZOLE SODIUM 40 MG TABLET.DR PO SCH (05:39)
[2019-03-14 06:06] LABS: INTERNATIONAL RATION (INR) 1.13; PROTHROMBIN TIME 14.5 SEC (11.4-15.4)
--- NOTE | 2019-03-14 06:57 | PDOC PROGRESS REPORT ---
Subjective Progress Note for:: 03/14/19 Reason For Visit: LEFT KNEE ARTHRITIS 79-year-old white female with left knee arthritis and inability to ambulate. "Could you do a CAT scan?" Physical Exam Vital Signs: Temp Pulse Resp BP Pulse Ox 37.2 C 70 18 120/43 L 94 03/14/19 00:01 03/14/19 00:01 03/14/19 00:01 03/14/19 00:01 03/14/19 00:01 Intake & Output 03/12/19 03/13/19 03/14/19 06:59 06:59 06:59 Intake Total 0902 429 0939 Balance 0578 251 5487 Weight 90.1 kg 92.5 kg 91.9 kg Physical Exam: Middle-aged white female lying comfortably in bed General appearance: PRESENT: no acute distress Head exam: PRESENT: normocephalic Respiratory exam: PRESENT: unlabored Cardiovascular exam: PRESENT: RRR Pulses: PRESENT: +1 pedal pulses bilateral Vascular exam: PRESENT: normal capillary refill GI/Abdominal exam: PRESENT: soft Rectal exam: PRESENT: deferred Extremities exam: PRESENT: other - Left knee without effusion. Global tenderness to palpation. Pain associate with passive range of motion at the extremes. Distal neurovascular examination is intact. Neurological exam: PRESENT: alert, awake, oriented to person, oriented to place, oriented to time, oriented to situation Skin exam: PRESENT: dry, intact, warm. ABSENT: cyanosis, rash Results Laboratory Results: 03/13/19 06:00 03/09/19 16:39 03/13/19 12:55 Urine Color YELLOW Urine Appearance SLIGHTLY-CLOUDY Urine pH 6.0 Ur Specific [place] 1.005 Urine Protein NEGATIVE Urine Glucose (UA) NEGATIVE Urine Ketones NEGATIVE Urine Blood SMALL H Urine Nitrite NEGATIVE Ur Leukocyte Esterase NEGATIVE Urine WBC (Auto) 1 Urine RBC (Auto) 3 03/09/19 16:39 Creatine Kinase 56 Impressions: Chest X-Ray 03/09/19 18:23 IMPRESSION: NO ACUTE RADIOGRAPHIC FINDING IN THE CHEST. Status: Imported from PACS Assessment & Plan - Diagnosis (1) Arthritis of left knee Is this a current diagnosis for this admission?: Yes Plan: The patient remains somewhat equivocal on whether or not she is interested in surgical intervention. Total knee arthroplasty is completely an elective procedure that is performed to relieve pain and improve function. I think it would be best if the patient were discharged to rehabilitation facility to work on strengthening of the lower extremities. I then be glad to see her back as an outpatient and further discuss total knee arthroplasty on the elective basis. - Time Time Spent with patient: 15-24 minutes Anticipated discharge: SNF Within: when bed available
[2019-03-14] MEDS: FUROSEMIDE 40 MG TABLET PO SCH ×2 (10:21→17:31)
[2019-03-14] MEDS: FAMOTIDINE 20 MG TABLET PO SCH ×2 (10:22→17:31)
[2019-03-14] MEDS: OMEGA-3 ACID ETHYL ESTERS 1 GM CAPSULE PO SCH (10:22)
[2019-03-14] MEDS: POTASSIUM CHLORIDE 10 MEQ TABLET.ER PO SCH ×2 (10:22→17:31)
[2019-03-14] MEDS: MAGNESIUM OXIDE 400 MG TABLET PO SCH (10:22)
[2019-03-14] MEDS: GABAPENTIN 300 MG CAPSULE PO SCH ×2 (10:23→22:24)
[2019-03-14] MEDS: ACETAMINOPHEN 325 MG TABLET PO PRN ×2 (10:26→22:24)
[2019-03-14] MEDS: ENOXAPARIN SODIUM INJ 100 MG/1 ML DISP.SYRIN SUBCUT SCH ×2 (10:40→22:25)
[2019-03-14] MEDS: CILOSTAZOL 100 MG TABLET PO SCH ×2 (10:42→17:32)
[2019-03-14] MEDS: METOLAZONE 2.5 MG TABLET PO SCH (10:43)
[2019-03-14] MEDS: INSULIN GLARGINE,HUM.REC.ANLOG 1,000 UNIT/10 ML VIAL SUBCUT SCH ×2 (10:59→22:26)
[2019-03-14 11:04] LABS: ANION GAP 9 (5-19); BLOOD UREA NITROGEN 28 mg/dL (7-20); CALCIUM 9.1 mg/dL (8.4-10.2); CARBON DIOXIDE 25 mmol/L (22-30); CHLORIDE 102 mmol/L (98-107); GLUCOSE 227 mg/dL (75-110); POTASSIUM 3.7 mmol/L (3.6-5.0)
--- NOTE | 2019-03-14 17:22 | PDOC PROGRESS REPORT ---
Subjective Progress Note for:: 03/14/19 Subjective:: No adverse events overnight. She changed her mind again in yesterday afternoon and decided that she did not want to do surgery talked with Dr. Knapp again this morning and then with the patient again this morning and she is now changed her mind once again has decided that she will have surgery. Reason For Visit: LEFT KNEE ARTHRITIS Physical Exam Vital Signs: Temp Pulse Resp BP Pulse Ox 97.8 F 70 16 147/71 H 97 03/14/19 11:30 03/14/19 11:30 03/14/19 11:30 03/14/19 11:30 03/14/19 11:30 Intake & Output 03/13/19 03/14/19 03/15/19 06:59 06:59 06:59 Intake Total 320 1220 240 Balance 320 1220 240 Weight 92.5 kg 91.9 kg General appearance: PRESENT: no acute distress, cooperative, disheveled, morbidly obese Respiratory exam: PRESENT: clear to auscultation keo, symmetrical, unlabored. ABSENT: accessory muscle use, chest wall tenderness, crackles, prolonged expiratory phas, rhonchi, tachypnea, wheezes Cardiovascular exam: PRESENT: irregular rhythm, +S1, +S2 Pulses: PRESENT: normal carotid pulses, normal dorsalis pedis pul Vascular exam: PRESENT: normal capillary refill GI/Abdominal exam: PRESENT: normal bowel sounds, soft. ABSENT: distended, guarding, rebound, tenderness Extremities exam: ABSENT: clubbing, joint swelling, pedal edema Musculoskeletal exam: PRESENT: normal inspection. ABSENT: deformity Neurological exam: PRESENT: alert, awake, oriented to person, oriented to place, oriented to time, oriented to situation Psychiatric exam: PRESENT: anxious Skin exam: PRESENT: dry, warm Results Laboratory Results: 03/13/19 06:00 03/14/19 05:38 03/14/19 05:38 Sodium 136.4 L Potassium 3.7 Chloride 102 Carbon Dioxide 25 Anion Gap 9 BUN 28 H Creatinine 1.38 H Est GFR ( Amer) 45 L Glucose 227 H Calcium 9.1 03/09/19 16:39 Creatine Kinase 56 Impressions: Chest X-Ray 03/09/19 18:23 IMPRESSION: NO ACUTE RADIOGRAPHIC FINDING IN THE CHEST. Assessment and Plan - Diagnosis (1) Arthritis of left knee Is this a current diagnosis for this admission?: Yes Plan: We are going to tentatively plan for her to have surgery on Saturday morning. 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 However, her blood sugars remain elevated so we have decided to put her on a sliding scale. (3) Pacemaker Is this a current diagnosis for this admission?: Yes (4) Atrial fibrillation Qualifiers: Atrial fibrillation type: longstanding persistent Qualified Code(s): I48.11 - Longstanding persistent atrial fibrillation Is this a current diagnosis for this admission?: Yes Plan: Continue rate control, we were holding her Coumadin because she wanted to have surgery and we are bridging her with Lovenox, but since she is not going to have it were going to go ahead and restart her Coumadin. 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 (7) Obesity (BMI 30-39.9) Is this a current diagnosis for this admission?: Yes Plan: Strongly encouraged lifestyle modification - Plan Summary Summary: She has a host of chronic medical problems, none of which are acutely exacerbat ed. We will continue her home medications. We will hold her warfarin and cover her with Lovenox until she can have surgery and then we should be able to restart her warfarin. We will have her evaluated by physical therapy after the surgery to see what level of activity she will be able to tolerate. Placing her may be a bit of a challenge. - Time Time Spent with patient: 15-24 minutes
[2019-03-14] MEDS ORDERED: INSULIN LISPRO 100 UNIT/ML 3 ML VIAL SUBCUT ONE (19:00)
[2019-03-14] MEDS ORDERED: DEXTROSE 50%-WATER SYRINGE 25 GM/50 ML DOSE IV PRN (19:00)
[2019-03-14] MEDS ORDERED: DEXTROSE 40% GEL 15 GM TUBE PO PRN (19:00)
[2019-03-14] MEDS ORDERED: DEXTROSE 50%-WATER SYRINGE 12.5 GM/25 ML DOSE IV PRN (19:00)
[2019-03-14] MEDS ORDERED: DEXTROSE 40% GEL 15 GM TUBE X 2 PO PRN (19:00)
[2019-03-14] MEDS ORDERED: GLUCAGON,HUMAN RECOMB 1 MG INJ IM PRN (19:00)
[2019-03-14] MEDS: GUAIFENESIN SYRP 200 MG/10 ML UDC PO PRN (19:29)
[2019-03-14] MEDS ORDERED: WARFARIN SODIUM 2.5 MG TABLET PO SCH (22:00)
[2019-03-14] MEDS: INSULIN LISPRO 100 UNIT/ML 3 ML VIAL SUBCUT SCH (22:25)
[2019-03-15] MEDS: GUAIFENESIN SYRP 200 MG/10 ML UDC PO PRN ×3 (01:30→22:19)
[2019-03-15] MEDS: PANTOPRAZOLE SODIUM 40 MG TABLET.DR PO SCH (06:34)
[2019-03-15 06:48] LABS: PROTHROMBIN TIME 14.2 SEC (11.4-15.4)
[2019-03-15] MEDS: INSULIN LISPRO 100 UNIT/ML 3 ML VIAL SUBCUT SCH ×4 (08:03→22:20)
[2019-03-15] MEDS: ACETAMINOPHEN 325 MG TABLET PO PRN ×2 (08:06→22:20)
--- NOTE | 2019-03-15 09:25 | PDOC PROGRESS REPORT ---
Subjective Progress Note for:: 03/15/19 Reason For Visit: LEFT KNEE ARTHRITIS 79-year-old white female with persistent left knee pain and little progress in the way of physical therapy. The patient has vacillated on whether or not to undergo surgical intervention and at this point this morning she indicates her willingness to undergo left knee arthroplasty tomorrow. Physical Exam Vital Signs: Temp Pulse Resp BP Pulse Ox 36.5 C 90 17 151/52 H 94 03/14/19 23:34 03/14/19 23:34 03/14/19 23:34 03/14/19 23:34 03/14/19 23:34 Intake & Output 03/14/19 03/15/19 03/16/19 06:59 06:59 06:59 Intake Total 1220 1240 Output Total 1600 Balance 1220 -360 Weight 91.9 kg 90.8 kg Physical Exam: Overweight middle-aged white female lying in hospital bed in no acute distress. General appearance: PRESENT: no acute distress Head exam: PRESENT: normocephalic Respiratory exam: PRESENT: unlabored Cardiovascular exam: PRESENT: RRR Pulses: PRESENT: +1 pedal pulses bilateral Vascular exam: PRESENT: normal capillary refill GI/Abdominal exam: PRESENT: soft Rectal exam: PRESENT: deferred Results Laboratory Results: 03/13/19 06:00 03/14/19 05:38 03/14/19 05:38 Sodium 136.4 L Potassium 3.7 Chloride 102 Carbon Dioxide 25 Anion Gap 9 BUN 28 H Creatinine 1.38 H Est GFR ( Amer) 45 L Glucose 227 H Calcium 9.1 03/09/19 16:39 Creatine Kinase 56 Impressions: Chest X-Ray 03/09/19 18:23 IMPRESSION: NO ACUTE RADIOGRAPHIC FINDING IN THE CHEST. Status: Imported from PACS Assessment & Plan - Diagnosis (1) Arthritis of left knee Is this a current diagnosis for this admission?: Yes Plan: Tentative plan is to proceed with a left knee arthroplasty tomorrow under choice anesthesia. The patient understands that there are risks and benefits of surgery. The risks include and are not limited to infection, arthrofibrosis, deep venous thrombosis, and neurovascular injury. Preoperative orders have been written and the case has been posted in the OR. - Time Time Spent with patient: 15-24 minutes Anticipated discharge: Other Within: Other
[2019-03-15] MEDS: MAGNESIUM OXIDE 400 MG TABLET PO SCH (10:20)
[2019-03-15] MEDS: OMEGA-3 ACID ETHYL ESTERS 1 GM CAPSULE PO SCH (10:20)
[2019-03-15] MEDS: FAMOTIDINE 20 MG TABLET PO SCH ×2 (10:20→17:01)
[2019-03-15] MEDS: ENOXAPARIN SODIUM INJ 100 MG/1 ML DISP.SYRIN SUBCUT SCH (10:21)
[2019-03-15] MEDS: INSULIN GLARGINE,HUM.REC.ANLOG 1,000 UNIT/10 ML VIAL SUBCUT SCH ×2 (10:21→22:21)
[2019-03-15] MEDS: GABAPENTIN 300 MG CAPSULE PO SCH ×2 (10:21→22:19)
[2019-03-15] MEDS: FUROSEMIDE 40 MG TABLET PO SCH ×2 (10:21→17:00)
[2019-03-15] MEDS: POTASSIUM CHLORIDE 10 MEQ TABLET.ER PO SCH ×2 (10:21→17:00)
[2019-03-15 11:27] LABS: HEMATOCRIT 33.7 % (36.0-47.0); HEMOGLOBIN 11.5 g/dL (12.0-15.5); MEAN CORPUSCULAR HGB CONC 34.3 g/dL (32.0-36.0); MEAN CORPUSCULAR VOLUME 88 fl (80-97); PLATELET COUNT 210 10^3/uL (150-450); RED BLOOD COUNT 3.84 10^6/uL (3.72-5.28); RED CELL DISTRIBUTION WIDTH 13.8 % (11.5-14.0); WHITE BLOOD COUNT 7.2 10^3/uL (4.0-10.5)
[2019-03-15] MEDS: CILOSTAZOL 100 MG TABLET PO SCH ×2 (11:31→17:01)
[2019-03-15 11:36] LABS: INTERNATIONAL RATION (INR) 1.08
[2019-03-15 11:37] LABS: PARTIAL THROMBOPLASTIN TIME 39.9 SEC (23.5-35.8)
[2019-03-15 11:44] LABS: ANION GAP 11 (5-19); BLOOD UREA NITROGEN 29 mg/dL (7-20); CALCIUM 9.1 mg/dL (8.4-10.2); CARBON DIOXIDE 24 mmol/L (22-30); CHLORIDE 101 mmol/L (98-107); GLUCOSE 244 mg/dL (75-110); POTASSIUM 3.8 mmol/L (3.6-5.0)
--- NOTE | 2019-03-15 15:13 | PDOC PROGRESS REPORT ---
Subjective Progress Note for:: 03/15/19 Subjective:: No adverse events overnight. No new complaints. Eating and drinking without difficulty. She is not decided to back out of surgery at this point. Reason For Visit: LEFT KNEE ARTHRITIS Physical Exam Vital Signs: Temp Pulse Resp BP Pulse Ox 97.7 F 90 17 151/52 H 94 03/14/19 23:34 03/14/19 23:34 03/14/19 23:34 03/14/19 23:34 03/14/19 23:34 Intake & Output 03/14/19 03/15/19 03/16/19 06:59 06:59 06:59 Intake Total 1220 1240 Output Total 1600 Balance 1220 -360 Weight 91.9 kg 90.8 kg General appearance: PRESENT: no acute distress, cooperative, disheveled, morbidly obese Respiratory exam: PRESENT: clear to auscultation keo, symmetrical, unlabored. ABSENT: accessory muscle use, chest wall tenderness, crackles, prolonged expiratory phas, rhonchi, tachypnea, wheezes Cardiovascular exam: PRESENT: irregular rhythm, +S1, +S2 Pulses: PRESENT: normal carotid pulses, normal dorsalis pedis pul Vascular exam: PRESENT: normal capillary refill GI/Abdominal exam: PRESENT: normal bowel sounds, soft. ABSENT: distended, guarding, rebound, tenderness Extremities exam: ABSENT: clubbing, joint swelling, pedal edema Musculoskeletal exam: PRESENT: normal inspection. ABSENT: deformity Neurological exam: PRESENT: alert, awake, oriented to person, oriented to place, oriented to time, oriented to situation Psychiatric exam: PRESENT: anxious Skin exam: PRESENT: dry, warm Results Laboratory Results: 03/15/19 11:07 03/15/19 11:07 03/15/19 03/15/19 11:07 11:07 WBC 7.2 RBC 3.84 Hgb 11.5 L Hct 33.7 L MCV 88 MCH 30.0 MCHC 34.3 RDW 13.8 Plt Count 210 Sodium 135.6 L Potassium 3.8 Chloride 101 Carbon Dioxide 24 Anion Gap 11 BUN 29 H Creatinine 1.34 H Est GFR ( Amer) 46 L Glucose 244 H Calcium 9.1 03/09/19 16:39 Creatine Kinase 56 Impressions: Chest X-Ray 03/09/19 18:23 IMPRESSION: NO ACUTE RADIOGRAPHIC FINDING IN THE CHEST. Assessment and Plan - Diagnosis (1) Arthritis of left knee Is this a current diagnosis for this admission?: Yes Plan: We are going to tentatively plan for her to have surgery on Saturday morning. (2) Diabetes mellitus type II, controlled Qualifiers: Diabetes mellitus penitentiary insulin use: with termite control service representative use Diabetes mellitus complication status: with circulatory complication Diabetes mellitus complication detail: with other circulatory complications Qualified Code(s): E11.59 - Type 2 diabetes mellitus with other circulatory complications; Z79.4 - prison (current) use of insulin Is this a current diagnosis for this admission?: Yes Plan: She says she is been able to control it with diet, and she really does not want any insulin. However, her blood sugars remain elevated so we have decided to put her on a sliding scale. We found out she was taking insulin at home and so we have added that. (3) Pacemaker Is this a current diagnosis for this admission?: Yes (4) Atrial fibrillation Qualifiers: Atrial fibrillation type: longstanding persistent Qualified Code(s): I48.11 - Longstanding persistent atrial fibrillation Is this a current diagnosis for this admission?: Yes Plan: Continue rate control, we were holding her Coumadin because she wanted to have surgery and we are bridging her with Lovenox, but since she is not going to have it were going to go ahead and restart her Coumadin. (5) CKD (chronic kidney disease), stage III Is this a current diagnosis for this admission?: Yes Plan: Stable in its usual range (6) prison current use of anticoagulant therapy Is this a current diagnosis for this admission?: Yes Plan: We will keep her warfarin on hold, and resume after surgery. She is being covered with Lovenox in the meantime. (7) Obesity (BMI 30-39.9) Is this a current diagnosis for this admission?: Yes Plan: Strongly encouraged lifestyle modification - Plan Summary Summary: She has a host of chronic medical problems, none of which are acutely exacerbated. We will continue her home medications. We will hold her warfarin and cover her with Lovenox until she can have surgery and then we should be able to restart her warfarin. We will have her evaluated by physical therapy after the surgery to see what level of activity she will be able to tolerate. Placing her may be a bit of a challenge. - Time Time Spent with patient: 15-24 minutes
[2019-03-15 21:23] LABS: HEMATOCRIT 34.7 % (36.0-47.0); HEMOGLOBIN 11.7 g/dL (12.0-15.5); MEAN CORPUSCULAR HGB CONC 33.8 g/dL (32.0-36.0); MEAN CORPUSCULAR VOLUME 89 fl (80-97); PLATELET COUNT 251 10^3/uL (150-450); RED BLOOD COUNT 3.91 10^6/uL (3.72-5.28); RED CELL DISTRIBUTION WIDTH 13.9 % (11.5-14.0); WHITE BLOOD COUNT 8.2 10^3/uL (4.0-10.5)
[2019-03-15] MEDS: RINGERS SOLUTION,LACTATED 1,000 ML IV PRN (23:46)
[2019-03-16] MEDS ORDERED: TRANEXAMIC ACID INJ/PF 1,000 MG/10 ML SDV IV PRN (05:00)
[2019-03-16] MEDS ORDERED: OXYCODONE HCL SR 10 MG TABLET PO PRN (05:00)
[2019-03-16] MEDS ORDERED: VANCOMYCIN HCL 1,000 MG in DEXTROSE 5%-WATER 250 ML IV PRN (05:00)
[2019-03-16] MEDS: PANTOPRAZOLE SODIUM 40 MG TABLET.DR PO SCH (05:30)
[2019-03-16 05:48] LABS: HEMATOCRIT 33.1 % (36.0-47.0); HEMOGLOBIN 11.5 g/dL (12.0-15.5); MEAN CORPUSCULAR HEMOGLOBIN 30.4 pg (27.0-33.4); MEAN CORPUSCULAR HGB CONC 34.6 g/dL (32.0-36.0); MEAN CORPUSCULAR VOLUME 88 fl (80-97); PLATELET COUNT 234 10^3/uL (150-450); RED BLOOD COUNT 3.77 10^6/uL (3.72-5.28); RED CELL DISTRIBUTION WIDTH 14.2 % (11.5-14.0); WHITE BLOOD COUNT 6.7 10^3/uL (4.0-10.5)
[2019-03-16 05:55] LABS: INTERNATIONAL RATION (INR) 1.06; PROTHROMBIN TIME 13.8 SEC (11.4-15.4)
[2019-03-16] MEDS: INSULIN LISPRO 100 UNIT/ML 3 ML VIAL SUBCUT SCH ×4 (08:09→22:50)
[2019-03-16] MEDS: RINGERS SOLUTION,LACTATED 1,000 ML IV PRN (08:10)
[2019-03-16 08:59] LABS: APPEARANCE,URINE CLEAR; BILIRUBIN,URINE NEGATIVE (NEGATIVE); COLOR,URINE STRAW; GLUCOSE, URINE NEGATIVE (NEGATIVE); KETONES,URINE NEGATIVE (NEGATIVE); LEUKOCYTE ESTERASE,URINE NEGATIVE (NEGATIVE); NITRITE,URINE NEGATIVE (NEGATIVE); PROTEIN,URINE NEGATIVE (NEGATIVE); URINE SPECIFIC GRAVITY 1.006; UROBILINOGEN,URINE NEGATIVE mg/dL (<2.0)
[2019-03-16] MEDS: FUROSEMIDE 40 MG TABLET PO SCH ×2 (10:00→18:16)
[2019-03-16] MEDS: FAMOTIDINE 20 MG TABLET PO SCH ×2 (10:00→18:14)
[2019-03-16] MEDS: POTASSIUM CHLORIDE 10 MEQ TABLET.ER PO SCH ×2 (10:00→18:14)
[2019-03-16] MEDS: CILOSTAZOL 100 MG TABLET PO SCH ×2 (10:00→18:14)
[2019-03-16] MEDS: GABAPENTIN 300 MG CAPSULE PO SCH ×2 (15:03→22:51)
[2019-03-16] MEDS: FERROUS SULFATE 325 MG TABLET PO SCH (15:03)
[2019-03-16] MEDS: MAGNESIUM OXIDE 400 MG TABLET PO SCH (15:03)
[2019-03-16] MEDS: CHOLECALCIFEROL (D3) 1,000 UNIT (25 MCG) TABLET PO SCH (15:03)
[2019-03-16] MEDS: ASCORBIC ACID 500 MG TABLET PO SCH (15:03)
[2019-03-16] MEDS: OMEGA-3 ACID ETHYL ESTERS 1 GM CAPSULE PO SCH (15:04)
[2019-03-16] MEDS: INSULIN GLARGINE,HUM.REC.ANLOG 1,000 UNIT/10 ML VIAL SUBCUT SCH ×2 (15:04→22:51)
[2019-03-16] MEDS ORDERED: FUROSEMIDE INJ/PF 20 MG/2 ML SDV ONE (16:06)
--- NOTE | 2019-03-16 20:50 | PDOC PROGRESS REPORT ---
Subjective Progress Note for:: 03/16/19 Subjective:: She was supposed to have surgery on her left knee today but anesthesiology wanted cardiology clearance first. I spoke with Dr. Chacon who evaluated the case and told me that he saw no reason why the patient could not proceed with surgery. Reason For Visit: LEFT KNEE ARTHRITIS Physical Exam Vital Signs: Temp Pulse Resp BP Pulse Ox 98.2 F 70 16 132/45 H 98 03/16/19 11:22 03/16/19 11:22 03/16/19 11:22 03/16/19 11:22 03/16/19 11:22 Intake & Output 03/15/19 03/16/19 03/17/19 06:59 06:59 06:59 Intake Total 1240 1490 937 Output Total 1600 Balance -360 1490 937 Weight 90.8 kg 93.7 kg 93.7 kg General appearance: PRESENT: no acute distress, cooperative, disheveled, morbidly obese Respiratory exam: PRESENT: clear to auscultation koe, symmetrical, unlabored. ABSENT: accessory muscle use, chest wall tenderness, crackles, prolonged expiratory phas, rhonchi, tachypnea, wheezes Cardiovascular exam: PRESENT: irregular rhythm, +S1, +S2 Pulses: PRESENT: normal carotid pulses, normal dorsalis pedis pul Vascular exam: PRESENT: normal capillary refill GI/Abdominal exam: PRESENT: normal bowel sounds, soft. ABSENT: distended, guarding, rebound, tenderness Extremities exam: ABSENT: clubbing, joint swelling, pedal edema Musculoskeletal exam: PRESENT: normal inspection. ABSENT: deformity Neurological exam: PRESENT: alert, awake, oriented to person, oriented to place, oriented to time, oriented to situation Psychiatric exam: PRESENT: anxious Skin exam: PRESENT: dry, warm Results Laboratory Results: 03/16/19 05:30 03/15/19 11:07 03/15/19 03/16/19 03/16/19 21:14 05:30 08:40 WBC 8.2 6.7 RBC 3.91 3.77 Hgb 11.7 L 11.5 L Hct 34.7 L 33.1 L MCV 89 88 MCH 30.0 30.4 MCHC 33.8 34.6 RDW 13.9 14.2 H Plt Count 251 234 Urine Color STRAW Urine Appearance CLEAR Urine pH 6.0 Ur Specific [place] 1.006 Urine Protein NEGATIVE Urine Glucose (UA) NEGATIVE Urine Ketones NEGATIVE Urine Blood NEGATIVE Urine Nitrite NEGATIVE Ur Leukocyte Esterase NEGATIVE 03/09/19 16:39 Creatine Kinase 56 Impressions: Chest X-Ray 03/09/19 18:23 IMPRESSION: NO ACUTE RADIOGRAPHIC FINDING IN THE CHEST. Assessment and Plan - Diagnosis (1) Arthritis of left knee Is this a current diagnosis for this admission?: Yes Plan: I hope that some day soon this patient will actually get to have her surgery and then we can start planning her discharge to rehab. An official cardiology note is not in the chart, but I did talk to Dr. Chacon who told me he reviewed her records and did not think that there was any reason why she could not have the surgery. (2) Diabetes mellitus type II, controlled Qualifiers: Diabetes mellitus halfway insulin use: with joint terminal attack controller use Diabetes mellitus complication status: with circulatory complication Diabetes mellitus complication detail: with other circulatory complications Qualified Code(s): E11.59 - Type 2 diabetes mellitus with other circulatory complications; Z79.4 - lob[facility] (current) use of insulin Is this a current diagnosis for this admission?: Yes Plan: She says she is been able to control it with diet, and she really does not want any insulin. However, her blood sugars remain elevated so we have decided to put her on a sliding scale. We found out she was taking insulin at home and so we have added that. (3) Pacemaker Is this a current diagnosis for this admission?: Yes (4) Atrial fibrillation Qualifiers: Atrial fibrillation type: longstanding persistent Qualified Code(s): I48.11 - Longstanding persistent atrial fibrillation Is this a current diagnosis for this admission?: Yes Plan: Continue rate control, we were holding her Coumadin because she wanted to have surgery and we are bridging her with Lovenox, but since she is not going to have it were going to go ahead and restart her Coumadin. (5) CKD (chronic kidney disease), stage III Is this a current diagnosis for this admission?: Yes Plan: Stable in its usual range (6) [facility] current use of anticoagulant therapy Is this a current diagnosis for this admission?: Yes Plan: We will keep her warfarin on hold, and resume after surgery. She is being c overed with Lovenox in the meantime. (7) Obesity (BMI 30-39.9) Is this a current diagnosis for this admission?: Yes Plan: Strongly encouraged lifestyle modification - Plan Summary Summary: She has a host of chronic medical problems, none of which are acutely exacerbated. We will continue her home medications. We will hold her warfarin and cover her with Lovenox until she can have surgery and then we should be able to restart her warfarin. We will have her evaluated by physical therapy after the surgery to see what level of activity she will be able to tolerate. Placing her may be a bit of a challenge, but case management has been working on it and thinks that after surgery she will meet for inpatient and then we will be able to get her into rehab. She said initially that she did not have any friends or family that she could stay with and she currently lives alone. - Time Time Spent with patient: 15-24 minutes
--- NOTE | 2019-03-16 21:42 | PDOC CONSULTATION ---
Consultation-Blank Consultation: CARDIOLOGY CONSULTATION by Dr. Katelynn Chacon on 03/16/2019. Patient seen at 9 AM on 03/16/2019. 60 minutes spent on this patient more than 50% of time spent in direct patient care. REASON FOR CONSULTATION: Preoperative cardiac risk assessment for left knee surgery. CONSULT REQUESTING PHYSICIAN: Dr. Omer Knapp, orthopedic surgeon. HISTORY PRESENT ILLNESS: Chart reviewed. The patient admitted with severe arthritis of the left knee and with inability to bear weight and is scheduled for left arthroplasty. The patient initially refused surgery but subsequently now has accepted it. She has a history of coronary artery disease. All myocardial infarction. There is no recent anginal symptoms her last anginal episode of 4 months ago. She has a remote history of congestive heart failure heart failure with no recent symptoms. She states she recently had an echo at Dr. Herrera her trimmer helper is office and was told that the pumping function of the heart was normal. She has a history of chronic atrial fibrillation and also has a history of permanent pacemaker placement. There is no recent palpitations. There is no dizziness syncope or near syncope. There is no PND orthopnea. As mentioned earlier no recent symptoms of angina. She has a remote history of CVA as per complains of numbness in the remote past on the left upper extremity. She states her CAT scan showed old stroke. No recurrence of it and no residual lesions no further numbness. There is no focal or residual deficits from her CVA. There is no recurrence of TIA or CVA symptoms. She also has a history of chronic kidney disease. At present by labs it seems to be stPast Medical History Cardiac Medical History: Reports: Congestive Heart Failure, this occurred when the patient had atrial fibrillation without ventricular response. She has a history of atrial fibrillation, and states has had failed ablation times twice. She is on chronic anticoagulation therapy with warfarin. She has a remote history of CVA, but without any residual. She has a permanent pacemaker marisol cement.- Diastolic, Coronary Artery Disease, Myocardial Infarction - 2006, Hyperlipidema, Hypertension, Peripheral Vascular Disease. She states the last anginal episode she had was more than 4 months ago. She has no recent symptoms of congestive heart failure. Denies: DVT, Pulmonary Embolism Pulmonary Medical History: Reports: Bronchitis, Chronic Obstructive Pulmonary D isease (COPD), Sleep Apnea - Not compliant with CPAP mask due to discomfort. Denies: Tuberculosis Neurological Medical History: Reports: Other - TIAs Endocrine Medical History: Reports: Diabetes Mellitus Type 1, Diabetes Mellitus Type 2 Denies: Hyperthyroidism, Hypothyroidism GI Medical History: Reports: Gastroesophageal Reflux Disease Denies: Cirrhosis, Hepatitis Musculoskeltal Medical History: Reports: Arthritis Psychiatric Medical History: Reports: Depression Past Surgical History Past Surgical History: Reports: Cardiac Catheterization, Hysterectomy, Pacemaker, Tonsillectomy, Vascular Surgery - 3 stents placed in the right groin and thigh and popliteal region Social History Lives with: Alone Smoking Status: Never Smoker Electronic Cigarette use?: No Frequency of Alcohol Use: None Hx Recreational Drug Use: No Drugs: None Hx Prescription Drug Abuse: No Family History Family History: Reviewed & Not Pertinent Parental Family History Reviewed: Yes Children Family History Reviewed: Yes Sibling(s) Family History Reviewed.: Yes Medication/Allergy Home Medications: meprazole [Prilosec 20 mg Capsule] 20 mg PO BID 09/07/11 Albuterol Sulfate [Albuterol Sulfate Hfa] 1 - 2 puff IH Q4HP PRN 06/09/13 Butalb/Acetaminophen/Caffeine [Fioricet (50-325-40 mg) Tablet] 1 tab PO Q4HP PRN 06/09/13 Calcium Carbonate/Vitamin D3 [Calcium 600-Vit D3 200 Tablet] 2 tab PO DAILY 06/09/13 Cyclosporine [Restasis Droperette] 1 each OP BID 06/09/13 Diphenhydramine HCl [Benadryl] 25 mg PO Q6 PRN 06/09/13 Escitalopram Oxalate [Lexapro] 10 mg PO QHS 06/09/13 Fexofenadine HCl [Iris] 180 mg PO DAILY 06/09/13 Gabapentin [Neurontin] 600 mg PO TID 06/09/13 Hydrocodone/Acetaminophen [[place] 5-325 mg Tablet] 1 tab PO BID PRN 06/09/13 Nitroglycerin 0.4 mg SL Q5M PRN 06/09/13 [place]-3 Fatty Acids/Fish Oil [Fish Oil 1,[address]] 1 each PO BID 06/09/13 Paricalcitol [Zemplar] 1 mcg PO QAM 06/09/13 Clotrimazole 1% Topical [Lotrimin 1% Topical Soln 10 ml] 1 applic TP DAILY 09/11/14 Diazepam [Valium 5 mg Tablet] 2.5 mg PO BID PRN 09/11/14 Docusate Sodium [Colace 100 mg Capsule] 100 mg PO DAILY 09/11/14 Epinephrine [Epipen 2-Alfred] 0.3 mg IM PRN PRN 09/11/14 Ferrous Sulfate [Feosol] 325 mg PO DAILY 09/11/14 Furosemide [Lasix 40 mg Tablet] 40 mg PO QAM 09/11/14 Insulin Aspart [Novolog Insulin (Aspart) 100 unit/mL] 20 unit SUBCUT AC 09/11/14 Ketoconazole 120 ml TP DAILY 09/11/14 Ketoconazole [Nizoral] 1 bottle TOP DAILY 09/11/14 Ascorbic Acid [Vitamin C 500 mg Tablet] 500 mg PO DAILY 10/20/16 Cholecalciferol (Vitamin D3) [Vitamin D3] 3 cap PO DAILY 10/20/16 Fluticasone Propionate 2 sprays IN QHS PRN 10/20/16 Guaifenesin [Mucinex] 600 mg PO Q12HP PRN 10/20/16 Metoprolol Succinate [Toprol-Xl 25 mg Tab.sr] 1 tab PO QHS 10/20/16 Warfarin Sodium [Coumadin 5 mg Tablet] 5 mg PO SUTUTHSA 10/20/16 Warfarin Sodium [Coumadin 7.5 mg Tablet] 7.5 mg PO MOWEFR 10/20/16 Insulin Glargine,Hum.rec.anlog [Lantus Insulin 100 Unit/mL Insulin Pen] 50 unit SUBCUT DAILY #1 insuln.pen 10/21/16 Insulin Glargine,Hum.rec.anlog [Lantus] 30 unit SQ QHS #1 vial 10/21/16 Magnesium Oxide 400 mg PO BID #100 tablet 10/21/16 Potassium Chloride 20 meq PO ASDIR PRN #30 tablet.er 10/21/16 Allergies/Adverse Reactions: Iodinated Contrast Media (IVP),Statins,Sulfa. RESUSCITATION STATUS: The patient is a full code. Her daughter is her surrogate healthcare decision maker. Current Medications Generic Name Dose Route Start Last Admin Trade Name Freq PRN Reason Stop Dose Admin Acetaminophen 650 mg 03/09/19 18:51 03/15/19 22:20 Tylenol 325 Mg Tablet PO 04/08/19 18:50 650 mg Q4HP PRN Administration FOR HEADACHE OR PAIN Ascorbic Acid 500 mg 03/13/19 10:00 03/16/19 15:03 Vitamin C 500 Mg Tablet PO 04/12/19 09:59 500 mg [id number]@1000 MARTIN Administration Cholecalciferol 1,000 unit 03/13/19 10:00 03/16/19 15:03 Vitamin D3 1000 Unit Tablet PO 04/12/19 09:59 1,000 unit [id number]@1000 MARTIN Administration Cilostazol 50 mg 03/12/19 18:00 03/16/19 18:14 Pletal 100 Mg Tablet PO 04/11/19 17:59 50 mg BID MARTIN Administration Dextrose 12.5 gm 03/14/19 19:00 Dextrose Inj 50% Syringe (25 Gm/50 Ml) IV 04/13/19 18:59 PRN PRN FOR BG 50-69 IN ALERT PATIENT Protocol Dextrose 25 gm 03/14/19 19:00 Dextrose Inj 50% Syringe (25 Gm/50 Ml) IV 04/13/19 18:59 PRN PRN Protocol Enoxaparin Sodium 95 mg 03/09/19 22:00 03/15/19 10:21 Lovenox Inj 100 Mg/1 Ml Disp.Syrin SUBCUT 04/08/19 21:59 95 mg Q12 MARTIN Administration Famotidine 20 mg 03/12/19 18:00 03/16/19 18:14 Pepcid 20 Mg Tablet PO 04/11/19 17:59 20 mg BID MARTIN Administration Ferrous Sulfate 325 mg 03/13/19 10:00 03/16/19 15:03 Feosol 325 Mg Tablet PO 04/12/19 09:59 325 mg MOWEFR@1000 MARTIN Administration Furosemide 40 mg 03/12/19 18:00 03/16/19 18:16 Lasix 40 Mg Tablet PO 04/11/19 17:59 Not Given BID MARTIN Gabapentin 600 mg 03/12/19 22:00 03/16/19 22:51 Neurontin 300 Mg Capsule PO 04/11/19 21:59 600 mg Q12 MARTIN Administration Glucagon 1 mg 03/14/19 19:00 Glucagen Inj 1 Mg Vial IM 04/13/19 18:59 PRN PRN EVALUATE FOR BG < 70 Protocol Glucose 15 gm 03/14/19 19:00 Glutose 40% Gel 15 Gm Tube PO 04/13/19 18:59 PRN PRN FOR BG 50-69 IN ALERT PATIENT Protocol Glucose 30 gm 03/14/19 19:00 Glutose 40% Gel 15 Gm Tube PO 04/13/19 18:59 PRN PRN FOR BG < 50 IN ALERT PATIENT Protocol Guaifenesin 200 mg 03/11/19 07:44 03/16/19 22:57 Robitussin Syrup 200 Mg/10 Ml Ud Cup PO 04/10/19 07:43 200 mg Q6HP PRN Administration FOR COUGH Insulin Glargine 20 unit 03/14/19 10:00 03/16/19 22:51 Lantus Insulin 100 Unit/1 Ml 10 Ml SUBCUT 04/13/19 09:59 20 unit Q12 MARTIN Administration Insulin Human Lispro 0 - 12 unit 03/14/19 22:00 03/16/19 22:50 Humalog Insulin 100 Unit/1 Ml 3 Ml Vial SUBCUT 04/13/19 21:59 2 unit ACHS MARTIN Administration Protocol Magnesium Oxide 800 mg 03/13/19 10:00 03/16/19 15:03 Mag-Ox 400 Mg Tablet PO 04/12/19 09:59 800 mg DAILY MARTIN Administration Metolazone 2.5 mg 03/14/19 10:00 03/14/19 10:43 Zaroxolyn 2.5 Mg Tablet PO 04/13/19 09:59 2.5 mg TUTHSA@1000 MARTIN Administration Iyiiv-1-Veny Ethyl Esters 1 gm 03/13/19 10:00 03/16/19 15:04 Lovaza 1 Gm Capsule PO 04/12/19 09:59 1 gm DAILY MARTIN Administration Pantoprazole Sodium 40 mg 03/13/19 06:00 03/16/19 05:[address] Tablet PO 04/12/19 05:59 40 mg Q6AM MARTIN Administration Patient Own Medication 1,000 mcg 03/13/19 10:00 Biotin [Biotin] PO 04/12/19 09:59 .DAILY MARTIN Potassium Chloride 10 meq 03/12/19 18:00 03/16/19 18:14 Klor-Con 10 Meq Capsule Er PO 04/11/19 17:59 10 meq BID MARTIN Administration Sodium Chloride 2.5 ml 03/09/19 22:00 03/16/19 22:51 Saline Flush 2.5 Ml Monoject Prefil Syrin IV 04/08/19 21:59 2.5 ml Q8 MARTIN Administration Discontinued Medications Generic Name Dose Route Start Last Admin Trade Name Amy PRN Reason Stop Dose Admin Dextrose 12.5 gm 03/13/19 11:36 Dextrose Inj 50% Syringe (25 Gm/50 Ml) IV 04/12/19 11:35 PRN PRN FOR BG 50-69 IN ALERT PATIENT Protocol Dextrose 25 gm 03/13/19 11:36 Dextrose Inj 50% Syringe (25 Gm/50 Ml) IV 04/12/19 11:35 PRN PRN PER PROTOCOL Protocol Furosemide Confirm 03/16/19 16:06 03/16/19 18:07 Lasix Inj/Pf 20 Mg/2 Ml Sdv Administered 03/16/19 16:07 Not Given Dose 20 mg .ROUTE .STK-MED ONE Glucagon 1 mg 03/13/19 11:36 Glucagen Inj 1 Mg Vial IM 04/12/19 11:35 PRN PRN Evaluate for BG < 70 Protocol Glucose 15 gm 03/13/19 11:36 Glutose 40% Gel 15 Gm Tube PO 04/12/19 11:35 PRN PRN FOR BG 50-69 IN ALERT PATIENT Protocol Glucose 30 gm 03/13/19 11:36 Glutose 40% Gel 15 Gm Tube PO 04/12/19 11:35 PRN PRN FOR BG < 50 IN ALERT PATIENT Protocol Guaifenesin 200 mg 03/10/19 22:11 03/10/19 22:19 Robitussin Syrup 200 Mg/10 Ml Ud Cup PO 04/09/19 22:10 200 mg Q6HP PRN Administration COUGH Lactated Ringer's 1,000 mls @ 150 mls/hr 03/15/19 23:59 03/16/19 08:10 Lactated Ringers 1000 Ml Iv Soln IV 03/16/19 23:58 150 mls/hr CONTINUOUS PRN Administration THIS MED IS NOT "PRN" Vancomycin HCl 1,000 mg/ 250 mls @ 166.667 mls/hr 03/16/19 05:00 Dextrose IV 03/16/19 23:59 .PREOP 03/16/19 PRN THIS MED IS NOT "PRN" Insulin Glargine 20 unit 03/13/19 22:00 03/13/19 23:04 Lantus (Pyxis) Insulin 100 Unit/1 Ml 10 Ml SUBCUT 03/13/19 22:01 20 unit NOW ONE Administration Insulin Human Lispro 0 - 12 unit 03/13/19 16:00 Humalog Insulin 100 Unit/1 Ml 3 Ml Vial SUBCUT 04/12/19 15:59 [facility] Protocol Insulin Human Lispro 0 - 12 unit 03/14/19 19:00 03/14/19 19:22 Humalog Insulin 100 Unit/1 Ml 3 Ml Vial SUBCUT 03/14/19 19:01 8 unit NOW ONE Administration Protocol Oxycodone HCl 20 mg 03/16/19 05:00 Oxycontin Sr 10 Mg Tablet PO 03/16/19 23:59 PREOP PRN THIS MED IS NOT "PRN" Tranexamic Acid 1,000 mg 03/16/19 05:00 Tranexamic Acid Inj/Pf 1000 Mg/10 Ml Sdv IV 03/16/19 23:59 PREOP PRN THIS MED IS NOT "PRN" Warfarin Sodium 7.5 mg 03/13/19 22:00 Coumadin 7.5 Mg Tablet PO 04/12/19 21:59 [email or web address] [facility] Warfarin Sodium 2.5 mg 03/14/19 22:00 Coumadin 2.5 Mg Tablet PO 04/13/19 21:59 [email or web address] [facility] Warfarin Sodium 4 mg 03/13/19 22:00 03/13/19 23:05 Coumadin 4 Mg Tablet PO 04/12/19 21:59 Not Given [facility] Review of Systems Head: No history of headaches or head injury. EYES: No history of an appropriate diplopia no amaurosis fugax. EARS: No history of tinnitus. No severe hearing loss. NOSE: No history of nosebleeds. No history of hayfever. MOUTH: No history of altered taste sensation. No bleeding from the gums. THROA T: No history of odynophagia or dysphagia. SKIN: No history of skin lesions. No allergic discoloration of the skin skin. There is no pruritus. NECK: No history of neck swelling. No history of neck pain. LUNGS: No history of asthma COPD. No history of cough or sputum production. No history of sleep apnea. No history of pleuritic chest pain no history of pulmonary embolism. HEART: History of coronary artery disease remote history of [place]. No recent recent anginal symptoms. The patient is pretty stable from a CAD. No history of recent congestive heart failure. History of chronic atrial fibrillation. History of permanent pacemaker placement. No syncope. No history of PND orthopnea or leg edema. PRODUCTION SUPERINTENDENT: Past history of T CVA with no recurrence. No history of headaches migraines or seizures. PSYCHIATRIC: No history of anxiety or depression. No suicidal ideation. No homicidal ideation. All caps renal: History of chronic kidney disease. No symptoms or UTI. ENDOCRINE no history of diabetes mellitus or thyroid disease. No history of polydipsia polyuria. No history of heat or cold intolerance. MUSCULOSKELETAL: History of severe arthritis of the left knee the patient unable to bear weight and walk. Patient is for left knee arthroplasty. No history of rheumatoid arthritis. No history of collagen vascular disease. VASCULAR: No history of DVT. No symptoms of peripheral vascular disease. CONSTITUTIONAL: No history of fever chills or rigors. Denies any generalized fatigue or generalized weakness. PHYSICAL EXAMINATION: The patient is mildly obese. In no acute distress. She is well-groomed Selected Entries 03/16/19 09:14 Temperature 98.2 F Temperature Oral Source Pulse Rate 70 Respiratory 17 Rate Blood Pressure 139/48 H Blood Pressure 78 Mean BP Location Right Arm BP Position Supine O2 Sat by Pulse 97 Oximetry Oxygen Delivery Room Air Method HEAD: Is atraumatic normocephalic. EYES: Pupils are equal round regular reactive to light and accommodation. There is no clinical pallor. There is no scleral icterus. External ocular movements are normal. EARS: Tympanic membranes are intact. External auditory canals are clear. NOSE: Nasal mucous membranes are not inflamed. There is no deviated nasal septum. MOUTH: Mucous membranes of mouth are moist. Tongue is moist. There is no ulcers. There is no bleeding from the gums. THROAT: There is no redness of the oropharynx. There is no exudates in the throat. SKIN: There is no petechia or ecchymosis. There is no skin rashes or skin lesions. NECK: Is supple. There is no JVD. Carotids are equal there is no bruits. There is no lymphadenopathy. There is no goiter. There is no accessory muscles of respiration in use. Trachea central. LUNGS: There is diminished air entry and prolonged expiration. On percussion there is hyperresonance. There is scattered rhonchi present. There is no rales or wheezing. There is no chest wall tenderness on palpation. HEART: S1-S2 is heard. S1 is of variable intensity. There is no S3 gallop. There is no S4 gallop. There is systolic murmur left sternal border and the apex, without radiation. There is no murmur of aortic stenosis. There is no aortic regurgitation murmur.. There is no rub. ABDOMEN: Is Nontender. There is no hepatosplenomegaly. Bowel sounds are well heard. EXTREMITIES: Femorals are deep. Femorals are slightly diminished. There is no femoral bruits. There is no pedal edema. There is no DVT or cellulitis. Leg pulses are diminished. There is no cyanosis or clubbing. Capillary refill is normal. There is no calf tenderness. PRODUCTION SUPERINTENDENT: The patient is conscious awake alert oriented x3 with no focal deficits. PSYCHIATRIC: The patient judgment and insight are intact her affect is normal. Musculoskeletal: There is swelling in the left knee and there is tenderness. Range of motion is severely decreased in the left knee. EKG: Underlying atrial fibrillation with ventricular paced rhythm. Labs- Entire Visit 03/09/19 03/09/19 03/09/19 16:39 16:39 17:28 WBC 8.9 RBC 4.16 Hgb 12.4 Hct 37.0 MCV 89 MCH 29.9 MCHC 33.7 RDW 14.4 H Plt Count 199 Lymph % (Auto) 15.1 [place] % (Auto) 11.1 Eos % (Auto) 3.7 Baso % (Auto) 0.9 Absolute Neuts (auto) 6.2 Absolute Lymphs (auto) 1.3 Absolute Monos (auto) 1.0 Absolute Eos (auto) 0.3 Absolute Basos (auto) 0.1 Seg Neutrophils % 69.2 PT 22.1 H INR 1.90 APTT Sodium 138.6 Potassium 3.2 L Chloride 99 Carbon Dioxide 29 Anion Gap 11 BUN 35 H Creatinine 1.35 H Est GFR ( Amer) 46 L Est GFR (MDRD) Non-Af 38 L Glucose 236 H POC Glucose Hemoglobin A1c % Calcium 9.2 Total Bilirubin 1.3 Direct Bilirubin 0.0 Neonat Total Bilirubin Not Reportable Neonat Direct Bilirubin Not Reportable Neonat Indirect Bili Not Reportable AST 30 ALT 23 Alkaline Phosphatase 71 Creatine Kinase 56 Total Protein 7.0 Albumin 3.8 Urine Color Urine Appearance Urine pH Ur Specific [place] Urine Protein Urine Glucose (UA) Urine Ketones Urine Blood Urine Nitrite Urine Bilirubin Urine Urobilinogen Ur Leukocyte Esterase Urine WBC (Auto) Urine RBC (Auto) U Hyaline Cast (Auto) Urine Bacteria (Auto) Squamous Epi Cells Auto Urine Mucus (Auto) Urine Ascorbic Acid 03/09/19 03/11/19 03/11/19 19:26 03:10 07:11 WBC 6.9 RBC 4.15 Hgb 12.6 Hct 36.3 MCV 88 MCH 30.3 MCHC 34.6 RDW 14.0 Plt Count 199 Lymph % (Auto) [place] % (Auto) Eos % (Auto) Baso % (Auto) Absolute Neuts (auto) Absolute Lymphs (auto) Absolute Monos (auto) Absolute Eos (auto) Absolute Basos (auto) Seg Neutrophils % PT INR APTT Sodium Potassium Chloride Carbon Dioxide Anion Gap BUN Creatinine Est GFR ( Amer) Est GFR (MDRD) Non-Af Glucose POC Glucose Hemoglobin A1c % Calcium Total Bilirubin Direct Bilirubin Neonat Total Bilirubin Neonat Direct Bilirubin Neonat Indirect Bili AST ALT Alkaline Phosphatase Creatine Kinase Total Protein Albumin Urine Color STRAW YELLOW Urine Appearance CLEAR CLEAR Urine pH 5.0 7.0 Ur Specific [place] 1.008 1.014 Urine Protein NEGATIVE NEGATIVE Urine Glucose (UA) NEGATIVE NEGATIVE Urine Ketones NEGATIVE NEGATIVE Urine Blood SMALL H SMALL H Urine Nitrite NEGATIVE NEGATIVE Urine Bilirubin NEGATIVE NEGATIVE Urine Urobilinogen NEGATIVE NEGATIVE Ur Leukocyte Esterase NEGATIVE NEGATIVE Urine WBC (Auto) 0 0 Urine RBC (Auto) 1 1 U Hyaline Cast (Auto) 1 Urine Bacteria (Auto) TRACE TRACE Squamous Epi Cells Auto 3 8 Urine Mucus (Auto) RARE Urine Ascorbic Acid NEGATIVE NEGATIVE 03/11/19 03/12/19 03/12/19 07:11 05:33 21:25 WBC 6.9 RBC 4.13 Hgb 12.4 Hct 36.4 MCV 88 MCH 30.1 MCHC 34.2 RDW 13.7 Plt Count 221 Lymph % (Auto) [place] % (Auto) Eos % (Auto) Baso % (Auto) Absolute Neuts (auto) Absolute Lymphs (auto) Absolute Monos (auto) Absolute Eos (auto) Absolute Basos (auto) Seg Neutrophils % PT 16.6 H 15.7 H INR 1.33 1.24 APTT Sodium Potassium Chloride Carbon Dioxide Anion Gap BUN Creatinine Est GFR ( Amer) Est GFR (MDRD) Non-Af Glucose POC Glucose Hemoglobin A1c % Calcium Total Bilirubin Direct Bilirubin Neonat Total Bilirubin Neonat Direct Bilirubin Neonat Indirect Bili AST ALT Alkaline Phosphatase Creatine Kinase Total Protein Albumin Urine Color Urine Appearance Urine pH Ur Specific [place] Urine Protein Urine Glucose (UA) Urine Ketones Urine Blood Urine Nitrite Urine Bilirubin Urine Urobilinogen Ur Leukocyte Esterase Urine WBC (Auto) Urine RBC (Auto) U Hyaline Cast (Auto) Urine Bacteria (Auto) Squamous Epi Cells Auto Urine Mucus (Auto) Urine Ascorbic Acid 03/13/19 03/13/19 03/13/19 06:00 06:00 12:55 WBC 6.5 RBC 4.06 Hgb 12.3 Hct 35.7 L MCV 88 MCH 30.4 MCHC 34.5 RDW 14.1 H Plt Count 210 Lymph % (Auto) [place] % (Auto) Eos % (Auto) Baso % (Auto) Absolute Neuts (auto) Absolute Lymphs (auto) Absolute Monos (auto) Absolute Eos (auto) Absolute Basos (auto) Seg Neutrophils % PT 14.6 INR 1.13 APTT Sodium Potassium Chloride Carbon Dioxide Anion Gap BUN Creatinine Est GFR ( Amer) Est GFR (MDRD) Non-Af Glucose POC Glucose Hemoglobin A1c % Calcium Total Bilirubin Direct Bilirubin Neonat Total Bilirubin Neonat Direct Bilirubin Neonat Indirect Bili AST ALT Alkaline Phosphatase Creatine Kinase Total Protein Albumin Urine Color YELLOW Urine Appearance SLIGHTLY-CLOUDY Urine pH 6.0 Ur Specific [place] 1.005 Urine Protein NEGATIVE Urine Glucose (UA) NEGATIVE Urine Ketones NEGATIVE Urine Blood SMALL H Urine Nitrite NEGATIVE Urine Bilirubin NEGATIVE Urine Urobilinogen NEGATIVE Ur Leukocyte Esterase NEGATIVE Urine WBC (Auto) 1 Urine RBC (Auto) 3 U Hyaline Cast (Auto) Urine Bacteria (Auto) TRACE Squamous Epi Cells Auto 4 Urine Mucus (Auto) RARE Urine Ascorbic Acid NEGATIVE 03/13/19 03/14/19 03/14/19 21:38 05:38 05:38 WBC RBC Hgb Hct MCV MCH MCHC RDW Plt Count Lymph % (Auto) [place] % (Auto) Eos % (Auto) Baso % (Auto) Absolute Neuts (auto) Absolute Lymphs (auto) Absolute Monos (auto) Absolute Eos (auto) Absolute Basos (auto) Seg Neutrophils % PT 14.5 INR 1.13 APTT Sodium 136.4 L Potassium 3.7 Chloride 102 Carbon Dioxide 25 Anion Gap 9 BUN 28 H Creatinine 1.38 H Est GFR ( Amer) 45 L Est GFR (MDRD) Non-Af 37 L Glucose 227 H POC Glucose 282 H Hemoglobin A1c % Calcium 9.1 Total Bilirubin Direct Bilirubin Neonat Total Bilirubin Neonat Direct Bilirubin Neonat Indirect Bili AST ALT Alkaline Phosphatase Creatine Kinase Total Protein Albumin Urine Color Urine Appearance Urine pH Ur Specific [place] Urine Protein Urine Glucose (UA) Urine Ketones Urine Blood Urine Nitrite Urine Bilirubin Urine Urobilinogen Ur Leukocyte Esterase Urine WBC (Auto) Urine RBC (Auto) U Hyaline Cast (Auto) Urine Bacteria (Auto) Squamous Epi Cells Auto Urine Mucus (Auto) Urine Ascorbic Acid 03/14/19 03/14/19 03/14/19 06:46 11:31 15:49 WBC RBC Hgb Hct MCV MCH MCHC RDW Plt Count Lymph % (Auto) [place] % (Auto) Eos % (Auto) Baso % (Auto) Absolute Neuts (auto) Absolute Lymphs (auto) Absolute Monos (auto) Absolute Eos (auto) Absolute Basos (auto) Seg Neutrophils % PT INR APTT Sodium Potassium Chloride Carbon Dioxide Anion Gap BUN Creatinine Est GFR ( Amer) Est GFR (MDRD) Non-Af Glucose POC Glucose 223 H 280 H 333 H Hemoglobin A1c % Calcium Total Bilirubin Direct Bilirubin Neonat Total Bilirubin Neonat Direct Bilirubin Neonat Indirect Bili AST ALT Alkaline Phosphatase Creatine Kinase Total Protein Albumin Urine Color Urine Appearance Urine pH Ur Specific [place] Urine Protein Urine Glucose (UA) Urine Ketones Urine Blood Urine Nitrite Urine Bilirubin Urine Urobilinogen Ur Leukocyte Esterase Urine WBC (Auto) Urine RBC (Auto) U Hyaline Cast (Auto) Urine Bacteria (Auto) Squamous Epi Cells Auto Urine Mucus (Auto) Urine Ascorbic Acid 03/14/19 03/15/19 03/15/19 21:09 06:18 06:31 WBC RBC Hgb Hct MCV MCH MCHC RDW Plt Count Lymph % (Auto) [place] % (Auto) Eos % (Auto) Baso % (Auto) Absolute Neuts (auto) Absolute Lymphs (auto) Absolute Monos (auto) Absolute Eos (auto) Absolute Basos (auto) Seg Neutrophils % PT 14.2 INR 1.10 APTT Sodium Potassium Chloride Carbon Dioxide Anion Gap BUN Creatinine Est GFR ( Amer) Est GFR (MDRD) Non-Af Glucose POC Glucose 376 H 187 H Hemoglobin A1c % Calcium Total Bilirubin Direct Bilirubin Neonat Total Bilirubin Neonat Direct Bilirubin Neonat Indirect Bili AST ALT Alkaline Phosphatase Creatine Kinase Total Protein Albumin Urine Color Urine Appearance Urine pH Ur Specific [place] Urine Protein Urine Glucose (UA) Urine Ketones Urine Blood Urine Nitrite Urine Bilirubin Urine Urobilinogen Ur Leukocyte Esterase Urine WBC (Auto) Urine RBC (Auto) U Hyaline Cast (Auto) Urine Bacteria (Auto) Squamous Epi Cells Auto Urine Mucus (Auto) Urine Ascorbic Acid 03/15/19 03/15/19 03/15/19 11:07 11:07 11:07 WBC 7.2 RBC 3.84 Hgb 11.5 L Hct 33.7 L MCV 88 MCH 30.0 MCHC 34.3 RDW 13.8 Plt Count 210 Lymph % (Auto) [place] % (Auto) Eos % (Auto) Baso % (Auto) Absolute Neuts (auto) Absolute Lymphs (auto) Absolute Monos (auto) Absolute Eos (auto) Absolute Basos (auto) Seg Neutrophils % PT 14.0 INR 1.08 APTT 39.9 H Sodium 135.6 L Potassium 3.8 Chloride 101 Carbon Dioxide 24 Anion Gap 11 BUN 29 H Creatinine 1.34 H Est GFR ( Amer) 46 L Est GFR (MDRD) Non-Af 38 L Glucose 244 H POC Glucose Hemoglobin A1c % Calcium 9.1 Total Bilirubin Direct Bilirubin Neonat Total Bilirubin Neonat Direct Bilirubin Neonat Indirect Bili AST ALT Alkaline Phosphatase Creatine Kinase Total Protein Albumin Urine Color Urine Appearance Urine pH Ur Specific [place] Urine Protein Urine Glucose (UA) Urine Ketones Urine Blood Urine Nitrite Urine Bilirubin Urine Urobilinogen Ur Leukocyte Esterase Urine WBC (Auto) Urine RBC (Auto) U Hyaline Cast (Auto) Urine Bacteria (Auto) Squamous Epi Cells Auto Urine Mucus (Auto) Urine Ascorbic Acid 03/15/19 03/15/19 03/15/19 11:07 11:20 16:05 WBC RBC Hgb Hct MCV MCH MCHC RDW Plt Count Lymph % (Auto) [place] % (Auto) Eos % (Auto) Baso % (Auto) Absolute Neuts (auto) Absolute Lymphs (auto) Absolute Monos (auto) Absolute Eos (auto) Absolute Basos (auto) Seg Neutrophils % PT INR APTT Sodium Potassium Chloride Carbon Dioxide Anion Gap BUN Creatinine Est GFR ( Amer) Est GFR (MDRD) Non-Af Glucose POC Glucose 249 H 242 H Hemoglobin A1c % 8.1 H Calcium Total Bilirubin Direct Bilirubin Neonat Total Bilirubin Neonat Direct Bilirubin Neonat Indirect Bili AST ALT Alkaline Phosphatase Creatine Kinase Total Protein Albumin Urine Color Urine Appearance Urine pH Ur Specific [place] Urine Protein Urine Glucose (UA) Urine Ketones Urine Blood Urine Nitrite Urine Bilirubin Urine Urobilinogen Ur Leukocyte Esterase Urine WBC (Auto) Urine RBC (Auto) U Hyaline Cast (Auto) Urine Bacteria (Auto) Squamous Epi Cells Auto Urine Mucus (Auto) Urine Ascorbic Acid 03/15/19 03/15/19 03/16/19 21:13 21:14 05:30 WBC 8.2 RBC 3.91 Hgb 11.7 L Hct 34.7 L MCV 89 MCH 30.0 MCHC 33.8 RDW 13.9 Plt Count 251 Lymph % (Auto) [place] % (Auto) Eos % (Auto) Baso % (Auto) Absolute Neuts (auto) Absolute Lymphs (auto) Absolute Monos (auto) Absolute Eos (auto) Absolute Basos (auto) Seg Neutrophils % PT 13.8 INR 1.06 APTT Sodium Potassium Chloride Carbon Dioxide Anion Gap BUN Creatinine Est GFR ( Amer) Est GFR (MDRD) Non-Af Glucose POC Glucose 270 H Hemoglobin A1c % Calcium Total Bilirubin Direct Bilirubin Neonat Total Bilirubin Neonat Direct Bilirubin Neonat Indirect Bili AST ALT Alkaline Phosphatase Creatine Kinase Total Protein Albumin Urine Color Urine Appearance Urine pH Ur Specific [place] Urine Protein Urine Glucose (UA) Urine Ketones Urine Blood Urine Nitrite Urine Bilirubin Urine Urobilinogen Ur Leukocyte Esterase Urine WBC (Auto) Urine RBC (Auto) U Hyaline Cast (Auto) Urine Bacteria (Auto) Squamous Epi Cells Auto Urine Mucus (Auto) Urine Ascorbic Acid 03/16/19 03/16/19 03/16/19 05:30 05:30 06:09 WBC 6.7 RBC 3.77 Hgb 11.5 L Hct 33.1 L MCV 88 MCH 30.4 MCHC 34.6 RDW 14.2 H Plt Count 234 Lymph % (Auto) [place] % (Auto) Eos % (Auto) Baso % (Auto) Absolute Neuts (auto) Absolute Lymphs (auto) Absolute Monos (auto) Absolute Eos (auto) Absolute Basos (auto) Seg Neutrophils % PT INR APTT 32.6 Sodium Potassium Chloride Carbon Dioxide Anion Gap BUN Creatinine Est GFR ( Amer) Est GFR (MDRD) Non-Af Glucose POC Glucose 247 H Hemoglobin A1c % Calcium Total Bilirubin Direct Bilirubin Neonat Total Bilirubin Neonat Direct Bilirubin Neonat Indirect Bili AST ALT Alkaline Phosphatase Creatine Kinase Total Protein Albumin Urine Color Urine Appearance Urine pH Ur Specific [place] Urine Protein Urine Glucose (UA) Urine Ketones Urine Blood Urine Nitrite Urine Bilirubin Urine Urobilinogen Ur Leukocyte Esterase Urine WBC (Auto) Urine RBC (Auto) U Hyaline Cast (Auto) Urine Bacteria (Auto) Squamous Epi Cells Auto Urine Mucus (Auto) Urine Ascorbic Acid 03/16/19 03/16/19 03/16/19 08:40 11:39 16:41 WBC RBC Hgb Hct MCV MCH MCHC RDW Plt Count Lymph % (Auto) [place] % (Auto) Eos % (Auto) Baso % (Auto) Absolute Neuts (auto) Absolute Lymphs (auto) Absolute Monos (auto) Absolute Eos (auto) Absolute Basos (auto) Seg Neutrophils % PT INR APTT Sodium Potassium Chloride Carbon Dioxide Anion Gap BUN Creatinine Est GFR ( Amer) Est GFR (MDRD) Non-Af Glucose POC Glucose 169 H 282 H Hemoglobin A1c % Calcium Total Bilirubin Direct Bilirubin Neonat Total Bilirubin Neonat Direct Bilirubin Neonat Indirect Bili AST ALT Alkaline Phosphatase Creatine Kinase Total Protein Albumin Urine Color STRAW Urine Appearance CLEAR Urine pH 6.0 Ur Specific [place] 1.006 Urine Protein NEGATIVE Urine Glucose (UA) NEGATIVE Urine Ketones NEGATIVE Urine Blood NEGATIVE Urine Nitrite NEGATIVE Urine Bilirubin NEGATIVE Urine Urobilinogen NEGATIVE Ur Leukocyte Esterase NEGATIVE Urine WBC (Auto) Urine RBC (Auto) U Hyaline Cast (Auto) Urine Bacteria (Auto) Squamous Epi Cells Auto 2 Urine Mucus (Auto) RARE Urine Ascorbic Acid NEGATIVE 03/16/19 22:45 WBC RBC Hgb Hct MCV MCH MCHC RDW Plt Count Lymph % (Auto) [place] % (Auto) Eos % (Auto) Baso % (Auto) Absolute Neuts (auto) Absolute Lymphs (auto) Absolute Monos (auto) Absolute Eos (auto) Absolute Basos (auto) Seg Neutrophils % PT INR APTT Sodium Potassium Chloride Carbon Dioxide Anion Gap BUN Creatinine Est GFR ( Amer) Est GFR (MDRD) Non-Af Glucose POC Glucose 200 H Hemoglobin A1c % Calcium Total Bilirubin Direct Bilirubin Neonat Total Bilirubin Neonat Direct Bilirubin Neonat Indirect Bili AST ALT Alkaline Phosphatase Creatine Kinase Total Protein Albumin Urine Color Urine Appearance Urine pH Ur Specific [place] Urine Protein Urine Glucose (UA) Urine Ketones Urine Blood Urine Nitrite Urine Bilirubin Urine Urobilinogen Ur Leukocyte Esterase Urine WBC (Auto) Urine RBC (Auto) U Hyaline Cast (Auto) Urine Bacteria (Auto) Squamous Epi Cells Auto Urine Mucus (Auto) Urine Ascorbic Acid Chest X-Ray 03/09/19 18:23 IMPRESSION: NO ACUTE RADIOGRAPHIC FINDING IN THE CHEST. IMPRESSION/RECOMMENDATION: 1. Coronary artery disease patient stable no anginal symptoms. No evidence of acute coronary syndrome clinically. 2. Atrial fibrillation with controlled ventricular response. 3. Hypertension: Blood pressure well controlled 4. History of permanent pacemaker. Pacemaker seems to be functioning properly. The patient states recently she had interrogated on the function was said to be normal. 5. Severe arthritis of left knee for left knee arthroplasty. 6. Preoperative cardiac risk assessment. 7. Prior history of CVA with no residual deficits and with no recurrence. HAVE REQUESTED COPY LAST OFFICE NOTE by Dr. Herrera and also the patient's recent ECHOCARDIOGRAM report. Medications reviewed. Medical regimen and management plan discussed with attending physician and orthopedic surgeon. The patient will be mild to moderate cardiac risk] acceptable cardiac risk, in view of the patient's age and the patient's comorbid conditions. We will watch the patient postoperatively for atrial fibrillation with rapid ventricular response, and also development of any congestive heart failure or postoperative/perioperative angina or acute coronary event. Medical decision making is of high complexity. Will follow
[2019-03-16] MEDS: GUAIFENESIN SYRP 200 MG/10 ML UDC PO PRN (22:57)
[2019-03-17] MEDS: PANTOPRAZOLE SODIUM 40 MG TABLET.DR PO SCH (05:29)
[2019-03-17 05:30] LABS: INTERNATIONAL RATION (INR) 1.09; PROTHROMBIN TIME 14.2 SEC (11.4-15.4)
[2019-03-17 05:40] LABS: APPEARANCE,URINE CLEAR; BILIRUBIN,URINE NEGATIVE (NEGATIVE); COLOR,URINE STRAW; GLUCOSE, URINE NEGATIVE (NEGATIVE); KETONES,URINE NEGATIVE (NEGATIVE); LEUKOCYTE ESTERASE,URINE NEGATIVE (NEGATIVE); NITRITE,URINE NEGATIVE (NEGATIVE); PROTEIN,URINE NEGATIVE (NEGATIVE); URINE SPECIFIC GRAVITY 1.009; UROBILINOGEN,URINE NEGATIVE mg/dL (<2.0)
--- NOTE | 2019-03-17 07:02 | PDOC PROGRESS REPORT ---
Subjective Progress Note for:: 03/17/19 Reason For Visit: LEFT KNEE ARTHRITIS 79-year-old white female with progressive left knee pain and functional disability. Patient had been scheduled for left knee arthroplasty yesterday but this was canceled because of anesthesia is requested for cardiac clearance. Physical Exam Vital Signs: Temp Pulse Resp BP Pulse Ox 37.1 C 70 17 128/43 H 98 03/17/19 00:11 03/17/19 00:11 03/17/19 00:11 03/17/19 00:11 03/17/19 00:11 Intake & Output 03/16/19 03/17/19 03/18/19 06:59 06:59 06:59 Intake Total 1490 937 Balance 1490 937 Weight 93.7 kg 93.8 kg Physical Exam: Unchanged Results Laboratory Results: 03/16/19 05:30 03/15/19 11:07 03/16/19 03/17/19 08:40 05:05 Urine Color STRAW STRAW Urine Appearance CLEAR CLEAR Urine pH 6.0 7.0 Ur Specific [place] 1.006 1.009 Urine Protein NEGATIVE NEGATIVE Urine Glucose (UA) NEGATIVE NEGATIVE Urine Ketones NEGATIVE NEGATIVE Urine Blood NEGATIVE NEGATIVE Urine Nitrite NEGATIVE NEGATIVE Ur Leukocyte Esterase NEGATIVE NEGATIVE Urine WBC (Auto) 0 Urine RBC (Auto) 0 03/09/19 16:39 Creatine Kinase 56 Impressions: Chest X-Ray 03/09/19 18:23 IMPRESSION: NO ACUTE RADIOGRAPHIC FINDING IN THE CHEST. Status: Imported from PACS Assessment & Plan - Diagnosis (1) Arthritis of left knee Is this a current diagnosis for this admission?: Yes Plan: Cardiac clearance has been documented by Dr. DICKINSON. Case is tentatively scheduled for 715 tomorrow morning. - Time Time Spent with patient: 15-24 minutes
[2019-03-17] MEDS: INSULIN LISPRO 100 UNIT/ML 3 ML VIAL SUBCUT SCH ×4 (08:12→22:12)
[2019-03-17] MEDS: FAMOTIDINE 20 MG TABLET PO SCH ×2 (10:29→17:28)
[2019-03-17] MEDS: GABAPENTIN 300 MG CAPSULE PO SCH ×2 (10:29→22:11)
[2019-03-17] MEDS: MAGNESIUM OXIDE 400 MG TABLET PO SCH (10:29)
[2019-03-17] MEDS: METOLAZONE 2.5 MG TABLET PO SCH (10:30)
[2019-03-17] MEDS: POTASSIUM CHLORIDE 10 MEQ TABLET.ER PO SCH ×2 (10:30→17:28)
[2019-03-17] MEDS: OMEGA-3 ACID ETHYL ESTERS 1 GM CAPSULE PO SCH (10:30)
[2019-03-17] MEDS: INSULIN GLARGINE,HUM.REC.ANLOG 1,000 UNIT/10 ML VIAL SUBCUT SCH ×2 (10:30→22:11)
[2019-03-17] MEDS: FUROSEMIDE 40 MG TABLET PO SCH ×2 (10:30→17:28)
[2019-03-17] MEDS: CILOSTAZOL 100 MG TABLET PO SCH ×2 (10:31→17:28)
[2019-03-17] MEDS: GUAIFENESIN SYRP 200 MG/10 ML UDC PO PRN ×2 (10:34→17:31)
[2019-03-17] MEDS: ACETAMINOPHEN 325 MG TABLET PO PRN (15:20)
--- NOTE | 2019-03-17 17:27 | PDOC PROGRESS REPORT ---
Subjective Progress Note for:: 03/17/19 Subjective:: The patient is an 79-year-old female with a past medical history of CHF, CAD, [place], hypertension, hyperlipidemia, peripheral vascular disease, COPD, TEE (noncompliant with CPAP), insulin-dependent diabetes mellitus, GERD, arthritis, depression, and obesity who was admitted 03/09/2019 for arthritis of the left knee resulting in ambulatory dysfunction. The patient was seen on morning rounds. She was found sitting in the recliner, comfortably, on room air. She reports that she is feeling well. She expresses some anxiety about her procedure tomorrow. She denies fever, chills, chest pain, palpitations, dyspnea, orthopnea, abdominal pain, nausea, vomiting and diarrhea. She reports good appetite. She has no other questions or concerns. No concerns per nursing. Reason For Visit: LEFT KNEE ARTHRITIS Physical Exam Vital Signs: Temp Pulse Resp BP Pulse Ox 98.2 F 70 18 115/68 99 03/17/19 11:08 03/17/19 11:08 03/17/19 11:08 03/17/19 11:08 03/17/19 11:08 Intake & Output 03/16/19 03/17/19 03/18/19 06:59 06:59 06:59 Intake Total 1490 937 480 Balance 1490 937 480 Weight 93.7 kg 93.8 kg General appearance: PRESENT: no acute distress, cooperative, obese, well- developed, well-nourished Head exam: PRESENT: atraumatic, normocephalic Eye exam: PRESENT: conjunctiva pink, EOMI, PERRLA. ABSENT: scleral icterus Ear exam: PRESENT: normal external ear exam Mouth exam: PRESENT: moist, tongue midline Respiratory exam: PRESENT: clear to auscultation keo, symmetrical, unlabored. ABSENT: rales, rhonchi, wheezes Cardiovascular exam: PRESENT: RRR, +S1, +S2. ABSENT: diastolic murmur, rubs, systolic murmur Pulses: PRESENT: normal dorsalis pedis pul Vascular exam: PRESENT: normal capillary refill GI/Abdominal exam: PRESENT: normal bowel sounds, soft. ABSENT: distended, guarding, mass, organolmegaly, rebound, tenderness Rectal exam: PRESENT: deferred Extremities exam: PRESENT: full ROM. ABSENT: calf tenderness, clubbing, pedal e gonzález Musculoskeletal exam: ABSENT: ambulatory - Secondary to left knee pain Neurological exam: PRESENT: alert, awake, oriented to person, oriented to place, oriented to time, oriented to situation, CN II-XII grossly intact. ABSENT: motor sensory deficit Psychiatric exam: PRESENT: appropriate affect, normal mood. ABSENT: homicidal ideation, suicidal ideation Skin exam: PRESENT: dry, intact, warm. ABSENT: cyanosis, rash Results Laboratory Results: 03/16/19 05:30 03/15/19 11:07 03/17/19 05:05 Urine Color STRAW Urine Appearance CLEAR Urine pH 7.0 Ur Specific [place] 1.009 Urine Protein NEGATIVE Urine Glucose (UA) NEGATIVE Urine Ketones NEGATIVE Urine Blood NEGATIVE Urine Nitrite NEGATIVE Ur Leukocyte Esterase NEGATIVE Urine WBC (Auto) 0 Urine RBC (Auto) 0 03/09/19 16:39 Creatine Kinase 56 Impressions: Chest X-Ray 03/09/19 18:23 IMPRESSION: NO ACUTE RADIOGRAPHIC FINDING IN THE CHEST. Assessment and Plan - Diagnosis (1) Arthritis of left knee Is this a current diagnosis for this admission?: Yes Plan: Has received surgical clearance by Dr. Chacon. Tentatively on the schedule for tomorrow with Dr. Knapp. (2) Atrial fibrillation Qualifiers: Atrial fibrillation type: longstanding persistent Qualified Code(s): I48.11 - Longstanding persistent atrial fibrillation Is this a current diagnosis for this admission?: Yes Plan: Chronic atrial fibrillation; currently rate controlled on her home medication regiment. Holding Coumadin due to planned surgical procedure tomorrow. Currently on Lovenox for coverage. Plan resume of Coumadin; goal INR 2-3. (3) CKD (chronic kidney disease), stage III Is this a current diagnosis for this admission?: Yes Plan: Stable in its usual range (4) Diabetes mellitus type II, controlled Qualifiers: Diabetes mellitus salvage determiner insulin use: with care home use Diabetes mellitus complication status: with circulatory complication Diabetes mellitus complication detail: with other circulatory complications Qualified Code(s): E11.59 - Type 2 diabetes mellitus with other circulatory complications; Z79.4 - adjunct faculty for medical terminology (current) use of insulin Is this a current diagnosis for this admission?: Yes Plan: Patient is placed on a consistent carb diet. Accu-Cheks before meals and at bedtime with sliding scale insulin. Hypoglycemia protocol in place. (5) alf current use of anticoagulant therapy Is this a current diagnosis for this admission?: Yes Plan: We will keep her warfarin on hold, and resume after surgery. She is being covered with Lovenox in the meantime. (6) Pacemaker Is this a current diagnosis for this admission?: Yes (7) Obstructive sleep apnea syndrome Is this a current diagnosis for this admission?: Yes Plan: Noncompliant with CPAP. Incentive spirometer and flutter valve to bedside. Encourage pulmonary toilet while awake. (8) Obesity (BMI 30-39.9) Is this a current diagnosis for this admission?: Yes Plan: Dietary and lifestyle modification are encouraged. BMI of 35.5. - Time Time Spent with patient: Less than 15 minutes Medications reviewed and adjusted accordingly: Yes Anticipated discharge: SNF Within: within 72 hours - noah require lovenox to coumadin bridge following surgery.
--- NOTE | 2019-03-17 18:49 | Progress Note ---
Provider Note Provider Note: CARDIOLOGY PROGRESS NOTE by Dr. Katelynn Chacon on 03/17/2019. Subjective: The patient denies any chest pain or discomfort. Heart rate is well controlled. She is still having knee pain. The patient is for surgical repair of the left knee tomorrow. She has no TIA CVA symptoms. There is no ventricular arrhythmia seen on the monitor. She is in atrial fibrillation with controlled ventricular response. PHYSICAL EXAMINATION: The patient is moderately obese. In no acute distress. Selected Entries 03/17/19 07:36 Temperature 98.2 F Temperature Oral Source Pulse Rate 69 Respiratory 17 Rate Blood Pressure 132/45 H Blood Pressure 74 Mean BP Location Right Arm BP Position Supine O2 Sat by Pulse 96 Oximetry Oxygen Delivery Room Air Method HEAD: Is atraumatic normocephalic. EYES: Pupils are equal round regular reactive to light and accommodation. There is no clinical pallor. There is no scleral icterus. External ocular movements are normal. EARS: Tympanic membranes are intact. External auditory canals are clear. NOSE: Nasal mucous membranes are not inflamed. There is no deviated nasal septum. MOUTH: Mucous membranes of mouth are moist. Tongue is moist. There is no ulcers. There is no bleeding from the gums. THROAT: There is no redness of the oropharynx. There is no exudates in the throat. SKIN: There is no petechia or ecchymosis. There is no skin rashes or skin lesions. NECK: Is supple. There is no JVD. Carotids are equal there is no bruits. There is no lymphadenopathy. There is no goiter. There is no accessory muscles of respiration in use. Trachea central. LUNGS: There is diminished air entry and prolonged expiration. On percussion there is hyperresonance. There is scattered rhonchi present. There is no rales or wheezing. There is no chest wall tenderness on palpation. HEART: S1-S2 is heard. S1 is of variable intensity. There is no S3 gallop. There is no S4 gallop. There is systolic murmur left sternal border and the apex, without radiation. There is no murmur of aortic stenosis. There is no aortic regurgitation murmur.. There is no rub. ABDOMEN: Is Nontender. There is no hepatosplenomegaly. Bowel sounds are well heard. EXTREMITIES: Femorals are deep. Femorals are slightly diminished. There is no femoral bruits. There is no pedal edema. There is no DVT or cellulitis. Leg pulses are diminished. There is no cyanosis or clubbing. Capillary refill is normal. There is no calf tenderness. REQUIREMENTS MANAGER: The patient is conscious awake alert oriented x3 with no focal deficits. PSYCHIATRIC: The patient judgment and insight are intact her affect is normal. Musculoskeletal: There is swelling in the left knee and there is tenderness. Range of motion is severely decreased in the left knee. She had an echocardiogram 03/02/2019 Dr. Herrera's office which is reported as normal retinal wall motion chamber size and LV ejection fraction was normal. There is mild mitral regurgitation with evidence of mitral valve repair with a annuloplasty ring. There is mild to moderate tricuspid regurgitation. There is no aortic stenosis or aortic regurgitation of significance. IMPRESSION/RECOMMENDATION: 1. As per Dr. Herrera's office note the patient has no coronary artery disease. 2. Atrial fibrillation with controlled ventricular response. 3. Hypertension: Blood pressure well controlled 4. History of permanent pacemaker. Pacemaker seems to be functioning properly. The patient states recently she had interrogated on the function was said to be normal. 5. History of mitral valve repair in the remote past. 6. Severe arthritis of left knee for left knee arthroplasty. 7. Prior history of CVA with no residual deficits and with no recurrence. 8.Preoperative cardiac risk assessment. The patient's heart rate is well controlled. And the patient's ejection fraction is normal. Hence the patient will be definitely an acceptable risk for this knee surgery. Postoperatively watch for rapid ventricle response to her atrial fibrillation, and document of congestive heart failure or ventricular arrhythmias. STRONGLY RECOMMEND ANTIBIOTICS PREOPERATIVELY FOR prophylactic SBE prophylaxis in view of the mitral valve repair in the past.
[2019-03-18 02:29] LABS: APPEARANCE,URINE CLEAR; BILIRUBIN,URINE NEGATIVE (NEGATIVE); COLOR,URINE STRAW; GLUCOSE, URINE NEGATIVE (NEGATIVE); KETONES,URINE NEGATIVE (NEGATIVE); LEUKOCYTE ESTERASE,URINE NEGATIVE (NEGATIVE); NITRITE,URINE NEGATIVE (NEGATIVE); PROTEIN,URINE NEGATIVE (NEGATIVE); URINE SPECIFIC GRAVITY 1.009; UROBILINOGEN,URINE NEGATIVE mg/dL (<2.0)
[2019-03-18] MEDS ORDERED: TRANEXAMIC ACID INJ/PF 1,000 MG/10 ML SDV IV PRN (05:00)
[2019-03-18] MEDS ORDERED: VANCOMYCIN HCL 1,000 MG in DEXTROSE 5%-WATER 250 ML IV PRN (05:00)
[2019-03-18] MEDS ORDERED: OXYCODONE HCL SR 10 MG TABLET PO PRN (05:00)
[2019-03-18] MEDS: PANTOPRAZOLE SODIUM 40 MG TABLET.DR PO SCH (05:20)
[2019-03-18 05:28] LABS: HEMATOCRIT 32.4 % (36.0-47.0); HEMOGLOBIN 11.2 g/dL (12.0-15.5); MEAN CORPUSCULAR HEMOGLOBIN 30.4 pg (27.0-33.4); MEAN CORPUSCULAR HGB CONC 34.5 g/dL (32.0-36.0); MEAN CORPUSCULAR VOLUME 88 fl (80-97); PLATELET COUNT 235 10^3/uL (150-450); RED BLOOD COUNT 3.69 10^6/uL (3.72-5.28); RED CELL DISTRIBUTION WIDTH 14.2 % (11.5-14.0); WHITE BLOOD COUNT 6.4 10^3/uL (4.0-10.5)
[2019-03-18 05:41] LABS: INTERNATIONAL RATION (INR) 1.03; PROTHROMBIN TIME 13.5 SEC (11.4-15.4)
[2019-03-18] MEDS ORDERED: MIDAZOLAM 2 MG/2 ML INJ ONE (06:33)
[2019-03-18] MEDS ORDERED: FENTANYL CITRATE INJ/PF 100 MCG/2 ML AMPUL ONE (06:33)
[2019-03-18] MEDS ORDERED: KETOROLAC TROMETHAMINE 60 MG/2 ML SDV ONE (06:33)
[2019-03-18] MEDS ORDERED: ONDANSETRON HCL INJ/PF 4 MG/2 ML SDV ONE (06:33)
[2019-03-18] MEDS ORDERED: TRANEXAMIC ACID INJ/PF 1,000 MG/10 ML SDV ONE ×2 (06:33→09:55)
[2019-03-18] MEDS ORDERED: EPHEDRINE SULFATE INJ 50 MG/1 ML AMPULE ONE (06:33)
[2019-03-18] MEDS ORDERED: PROPOFOL INJ 200 MG/20 ML VIAL IV ONE (06:34)
[2019-03-18] MEDS ORDERED: BUPIVACAINE HCL 0.25 % INJ/PF (2.5 MG/1 ML) 30 ML VIAL ONE (07:08)
[2019-03-18] MEDS ORDERED: VANCOMYCIN HCL INJ 1000 MG VIAL ONE (07:17)
[2019-03-18] MEDS ORDERED: MORPHINE SULFATE 10 MG/ML INJ IV PRN (08:14)
[2019-03-18] MEDS ORDERED: MEPERIDINE HCL/PF INJ 25 MG/1 ML DISP.SYRIN IV PRN (08:14)
[2019-03-18] MEDS ORDERED: ONDANSETRON HCL INJ/PF 4 MG/2 ML SDV IV PRN (08:14)
[2019-03-18] MEDS ORDERED: DIPHENHYDRAMINE HCL 50 MG/ML VIAL IV PRN ×2 (08:14→08:41)
[2019-03-18] MEDS ORDERED: PROMETHAZINE HCL INJ 25 MG/1 ML VIAL IV PRN ×2 (08:14)
[2019-03-18] MEDS ORDERED: OXYCODONE-ACETAMINOPHEN 5-325 MG TABLET PO PRN ×2 (08:14)
[2019-03-18] MEDS ORDERED: FENTANYL CITRATE INJ/PF 100 MCG/2 ML AMPUL IV PRN ×3 (08:14)
[2019-03-18] MEDS ORDERED: RINGERS SOLUTION,LACTATED 1,000 ML IV PRN ×2 (08:41)
[2019-03-18] MEDS ORDERED: MAG HYDROX/AL HYDROX/SIMETH SUSP 30 ML UDCUP PO PRN (08:41)
[2019-03-18] MEDS ORDERED: ONDANSETRON 4 MG TAB.RAPDIS PO PRN (08:41)
--- NOTE | 2019-03-18 08:41 | Operative Report ---
Operative Report DATE OF SURGERY: 03/18/19 PREOPERATIVE DIAGNOSIS: Left knee arthritis OPERATION: Left knee arthroplasty SURGEON: GABE MAYA ANESTHESIA: Spinal TISSUE REMOVED OR ALTERED: Bone to pathology ESTIMATED BLOOD LOSS: 25 INTRAOPERATIVE FINDINGS: Diffuse whitish coating on top of articular surfaces PROCEDURE: Implants used: Femur: Jeffry triathlon size 5 CR femur Tibia: 4 tibia Tibial liner: 11 mm CS insert Patella: 35 mm oval patella Procedure with the patient supine on the operating table the left the limb is prepped and draped in a sterile fashion. The limb was elevated for exsanguination and the tourniquet inflated to 280 torr. A standard midline median parapatellar approach the knee is taken. Access is gained to the femoral canal through the intercondylar notch. Intramedullary alignment instrumentation used to resect 10 mm of distal femur in 5 of valgus. Sizing guide indicated a size 5 femur. Appropriate cutting jig is then used to fashion anterior posterior and chamfer cuts. A trial reduction femurs performed and this is judged to be adequate. Attention was next turned to the tibia. Using an extra medullary alignment system 9 millimeters was resected off the lateral tibial plateau. This is sized to a size 4 tibia. A trial reduction was now performed with a 5 femur and a 4 tibia using a 11 millimeters spacer. It is full extension and central patellofemoral tracking. The articular surface the patella was next resected using an oscillating saw. All trial implants were removed. Polymethylmethacrylate is mixed and used to cement the above implants in place. On adequate curing the cement excess cement was removed the tourniquet was deflated hemostasis obtained the wound is then closed in layers using interrupted Vicryl followed by hansel. A sterile compressive dressing was applied and the patient returned to recovery room in satisfactory condition.
[2019-03-18] MEDS ORDERED: TRANEXAMIC ACID INJ/PF 1,000 MG/10 ML SDV IV ONE (10:00)
--- NOTE | 2019-03-18 10:12 | RADIOLOGY REPORT (SQ) ---
EXAM DESCRIPTION: KNEE LEFT 2 VIEWS COMPLETED DATE/TIME: 03/18/2019 9:30 am REASON FOR STUDY: Post OP -Long Cassette in PACU I48.20 CHRONIC ATRIAL FIBRILLATION, UNSPECIFIED E1 1.9 TYPE 2 DIABETES MELLITUS WITHOUT COMPLICATIONS Z79.01 [facility] (CURRENT) USE OF ANTICOAGULANTS COMPARISON: None. NUMBER OF VIEWS: Two views. TECHNIQUE: AP and lateral radiographic images acquired of the left knee. LIMITATIONS: None. FINDINGS: MINERALIZATION: Normal. BONES: Status post left TKA. The hardware is in anatomic alignment. The intra-articular and subcuta neous emphysema is expected in the immediate postoperative period. There is no periprosthetic fractu re. JOINT: As above. SOFT TISSUES: As above. OTHER: Anterior cutaneous surgical hansel. IMPRESSION: Status post left TKA with expected immediate postoperative findings. TECHNICAL DOCUMENTATION: JOB ID: [id number] [employer]- All Rights Reserved Reading location - IP/workstation name: [email or web address]
[2019-03-18] MEDS ORDERED: PHENYLEPHRINE HCL INJ/PF 10 MG/1 ML SDV ONE (11:16)
[2019-03-18] MEDS: OXYCODONE HCL IR 5 MG TABLET PO PRN ×2 (12:17→17:47)
[2019-03-18] MEDS: OXYCODONE HCL SR 10 MG TABLET PO SCH ×2 (12:18→22:16)
[2019-03-18] MEDS: GABAPENTIN 300 MG CAPSULE PO SCH ×2 (12:18→22:17)
[2019-03-18] MEDS: FAMOTIDINE 20 MG TABLET PO SCH ×2 (12:20→17:47)
[2019-03-18] MEDS: CHOLECALCIFEROL (D3) 1,000 UNIT (25 MCG) TABLET PO SCH (12:20)
[2019-03-18] MEDS: PRENATAL VITAMIN W DHA CAPSULE PO SCH (12:20)
[2019-03-18] MEDS: ASCORBIC ACID 500 MG TABLET PO SCH (12:20)
[2019-03-18] MEDS: FUROSEMIDE 40 MG TABLET PO SCH ×2 (12:20→17:48)
[2019-03-18] MEDS: POTASSIUM CHLORIDE 10 MEQ TABLET.ER PO SCH ×2 (12:20→17:57)
[2019-03-18] MEDS: OMEGA-3 ACID ETHYL ESTERS 1 GM CAPSULE PO SCH (12:21)
[2019-03-18] MEDS: SENNOSIDES/DOCUSATE 8.6-50 MG 1 EACH TABLET PO SCH ×2 (12:21→17:57)
[2019-03-18] MEDS: FERROUS SULFATE 325 MG TABLET PO SCH (12:21)
[2019-03-18] MEDS: MAGNESIUM OXIDE 400 MG TABLET PO SCH (12:21)
[2019-03-18] MEDS: CILOSTAZOL 100 MG TABLET PO SCH ×2 (12:39→17:47)
[2019-03-18] MEDS: INSULIN LISPRO 100 UNIT/ML 3 ML VIAL SUBCUT SCH ×4 (12:40→22:14)
[2019-03-18] MEDS: INSULIN GLARGINE,HUM.REC.ANLOG 1,000 UNIT/10 ML VIAL SUBCUT SCH ×2 (12:42→22:15)
[2019-03-18] MEDS ORDERED: INSULIN GLARGINE,HUM.REC.ANLOG 1,000 UNIT/10 ML VIAL (PYX) SUBCUT ONE (12:45)
--- NOTE | 2019-03-18 13:12 | Progress Note ---
Provider Note Provider Note: CARDIOLOGY PROGRESS NOTE by Dr. Katelynn Chacon on 03/18/2019. SUBJECTIVE: The patient had a left knee surgery. She complains of pain at the operative site. There is no chest pain discomfort. The patient is in atrial fibrillation with controlled ventricular response. There is no PND orthopnea orthopnea or shortness of breath. There is no leg edema. There is no TIA CVA symptoms. There is no ventricular arrhythmia seen on the monitor. PHYSICAL EXAMINATION: The patient is moderately obese at present in mild distress due to left knee pain. Selected Entries 03/18/19 12:37 Temperature 97.4 F Temperature Oral Source Pulse Rate 70 Respiratory 16 Rate Blood Pressure 123/51 L Blood Pressure 75 Mean BP Location Right Arm BP Position Supine O2 Sat by Pulse 97 Oximetry Oxygen Delivery Room Air Method HEAD: Is atraumatic normocephalic. EYES: Pupils are equal round regular reactive to light and accommodation. There is no clinical pallor. There is no scleral icterus. External ocular movements are normal. EARS: Tympanic membranes are intact. External auditory canals are clear. NOSE: Nasal mucous membranes are not inflamed. There is no deviated nasal septum. MOUTH: Mucous membranes of mouth are moist. Tongue is moist. There is no ulcers. There is no bleeding from the gums. THROAT: There is no redness of the oropharynx. There is no exudates in the throat. SKIN: There is no petechia or ecchymosis. There is no skin rashes or skin lesions. NECK: Is supple. There is no JVD. Carotids are equal there is no bruits. There is no lymphadenopathy. There is no goiter. There is no accessory muscles of respiration in use. Trachea centr al. LUNGS: There is diminished air entry and prolonged expiration. On percussion there is hyperresonance. There is scattered rhonchi present. There is no rales or wheezing. There is no chest wall tenderness on palpation. HEART: S1-S2 is heard. S1 is of variable intensity. There is no S3 gallop. There is no S4 gallop. There is systolic murmur left sternal border and the apex, without radiation. There is no murmur of aortic stenosis. There is no aortic regurgitation murmur.. There is no rub. ABDOMEN: Is Nontender. There is no hepatosplenomegaly. Bowel sounds are well heard. EXTREMITIES: Femorals are deep. Femorals are slightly diminished. There is no femoral bruits. There is no pedal edema. There is no DVT or cellulitis. Leg pulses are diminished. There is no cyanosis or clubbing. Capillary refill is normal. There is no calf tenderness. SHEET ROCK FINISHER: The patient is conscious awake alert oriented x3 with no focal deficits. PSYCHIATRIC: The patient judgment and insight are intact her affect is normal. Musculoskeletal: There is swelling in the left knee and there is tenderness. Range of motion is severely decreased in the left knee. Labs- All tests 24 hr 03/17/19 03/17/19 03/18/19 16:05 21:58 02:15 WBC RBC Hgb Hct MCV MCH MCHC RDW Plt Count PT INR POC Glucose 279 H 222 H Urine Color STRAW Urine Appearance CLEAR Urine pH 5.0 Ur Specific [place] 1.009 Urine Protein NEGATIVE Urine Glucose (UA) NEGATIVE Urine Ketones NEGATIVE Urine Blood NEGATIVE Urine Nitrite NEGATIVE Urine Bilirubin NEGATIVE Urine Urobilinogen NEGATIVE Ur Leukocyte Esterase NEGATIVE Urine WBC (Auto) 0 U Hyaline Cast (Auto) 1 Squamous Epi Cells Auto 2 Urine Mucus (Auto) RARE Urine Ascorbic Acid NEGATIVE 03/18/19 03/18/19 03/18/19 05:15 05:15 06:18 WBC 6.4 RBC 3.69 L Hgb 11.2 L Hct 32.4 L MCV 88 MCH 30.4 MCHC 34.5 RDW 14.2 H Plt Count 235 PT 13.5 INR 1.03 POC Glucose 215 H Urine Color Urine Appearance Urine pH Ur Specific [place] Urine Protein Urine Glucose (UA) Urine Ketones Urine Blood Urine Nitrite Urine Bilirubin Urine Urobilinogen Ur Leukocyte Esterase Urine WBC (Auto) U Hyaline Cast (Auto) Squamous Epi Cells Auto Urine Mucus (Auto) Urine Ascorbic Acid 03/18/19 11:34 WBC RBC Hgb Hct MCV MCH MCHC RDW Plt Count PT INR POC Glucose 193 H Urine Color Urine Appearance Urine pH Ur Specific [place] Urine Protein Urine Glucose (UA) Urine Ketones Urine Blood Urine Nitrite Urine Bilirubin Urine Urobilinogen Ur Leukocyte Esterase Urine WBC (Auto) U Hyaline Cast (Auto) Squamous Epi Cells Auto Urine Mucus (Auto) Urine Ascorbic Acid Chest X-Ray 03/09/19 18:23 IMPRESSION: NO ACUTE RADIOGRAPHIC FINDING IN THE CHEST. Knee X-Ray 03/18/19 08:43 IMPRESSION: Status post left TKA with expected immediate postoperative findings. IMPRESSION/RECOMMENDATION: 1. As per Dr. Herrera's office note the patient has no coronary artery disease. 2. Atrial fibrillation with controlled ventricular response. Note the patient has a history of mitral valve repair in the past. Hence she should be on Coumadin for stroke prophylaxis. The newer oral anticoagulation agents do not work. 3. Hypertension: Blood pressure well controlled 4. History of permanent pacemaker. Pacemaker seems to be functioning properly. The patient states recently she had interrogated on the function was said to be normal. 5. History of mitral valve repair in the remote past. 6. Severe arthritis of left knee ,S/P left knee arthroplasty. 7. Prior history of CVA with no residual deficits and with no recurrence. Medications reviewed. Medication regimen and management plan discussed with attending physician. Medical decision making is of moderate complexity. 40 minutes spent on the patient with than 50% of time spent in direct patient care. Patient cardiac status is stable. Will sign off. Please contact me if the patient did have any new cardiac problems arise during this admission.
[2019-03-18] MEDS: IBUPROFEN 800 MG in NORMAL SALINE 250 ML IV SCH ×2 (17:49→22:16)
[2019-03-18] MEDS ORDERED: VANCOMYCIN HCL 1,000 MG in DEXTROSE 5%-WATER 250 ML IV ONE (20:30)
[2019-03-18 22:08] LABS: HEMATOCRIT 32.8 % (36.0-47.0); HEMOGLOBIN 10.9 g/dL (12.0-15.5); MEAN CORPUSCULAR HEMOGLOBIN 29.8 pg (27.0-33.4); MEAN CORPUSCULAR HGB CONC 33.4 g/dL (32.0-36.0); MEAN CORPUSCULAR VOLUME 89 fl (80-97); PLATELET COUNT 239 10^3/uL (150-450); RED BLOOD COUNT 3.67 10^6/uL (3.72-5.28); RED CELL DISTRIBUTION WIDTH 14.5 % (11.5-14.0); WHITE BLOOD COUNT 12.4 10^3/uL (4.0-10.5)
[2019-03-19] MEDS: OXYCODONE HCL IR 5 MG TABLET PO PRN ×2 (04:38→11:59)
[2019-03-19] MEDS: PANTOPRAZOLE SODIUM 40 MG TABLET.DR PO SCH (05:33)
[2019-03-19] MEDS: IBUPROFEN 800 MG in NORMAL SALINE 250 ML IV SCH (05:33)
[2019-03-19] MEDS ORDERED: PANTOPRAZOLE SODIUM 40 MG TABLET.DR PO SCH (06:00)
--- NOTE | 2019-03-19 06:25 | PDOC PROGRESS REPORT ---
Subjective Progress Note for:: 03/19/19 Reason For Visit: LEFT KNEE ARTHRITIS 79-year-old white female now postop day 1 status post left knee arthroplasty. Patient with no complaints overnight. Physical Exam Vital Signs: Temp Pulse Resp BP Pulse Ox 36.9 C 70 16 113/41 L 93 03/19/19 00:32 03/19/19 00:32 03/19/19 00:32 03/19/19 00:32 03/19/19 00:32 Intake & Output 03/17/19 03/18/19 03/19/19 06:59 06:59 06:59 Intake Total 064 210 5442 Output Total 3209 Balance 411 297 3970 Weight 93.8 kg 93.7 kg Physical Exam: Patient lying comfortably in bed. General appearance: PRESENT: no acute distress Head exam: PRESENT: normocephalic Respiratory exam: PRESENT: unlabored Cardiovascular exam: PRESENT: RRR Vascular exam: PRESENT: normal capillary refill GI/Abdominal exam: PRESENT: soft Rectal exam: PRESENT: deferred Extremities exam: PRESENT: other - Left knee compressive dressing intact. Patient with tenderness to palpation over the knee region. Distal neurovascular examination is intact. Neurological exam: PRESENT: alert, awake, oriented to person, oriented to place, oriented to time, oriented to situation. ABSENT: motor sensory deficit Psychiatric exam: PRESENT: appropriate affect, normal mood. ABSENT: homicidal ideation, suicidal ideation Skin exam: PRESENT: dry, intact, warm. ABSENT: cyanosis, rash Results Laboratory Results: 03/18/19 21:43 03/15/19 11:07 03/18/19 21:43 WBC 12.4 H RBC 3.67 L Hgb 10.9 L Hct 32.8 L MCV 89 MCH 29.8 MCHC 33.4 RDW 14.5 H Plt Count 239 03/09/19 16:39 Creatine Kinase 56 Impressions: Chest X-Ray 03/09/19 18:23 IMPRESSION: NO ACUTE RADIOGRAPHIC FINDING IN THE CHEST. Knee X-Ray 03/18/19 08:43 IMPRESSION: Status post left TKA with expected immediate postoperative findings. Status: Imported from PACS Assessment & Plan - Diagnosis (1) Arthritis of left knee Is this a current diagnosis for this admission?: Yes Plan: Patient to be mobilized with physical therapy and weightbearing as tolerated basis. Anticipate the need for half-way facility placement. - Time Time Spent with patient: 15-24 minutes Anticipated discharge: SNF Within: when bed available
[2019-03-19 07:43] LABS: HEMATOCRIT 33.4 % (36.0-47.0); HEMOGLOBIN 11.3 g/dL (12.0-15.5); MEAN CORPUSCULAR HEMOGLOBIN 30.3 pg (27.0-33.4); MEAN CORPUSCULAR HGB CONC 33.9 g/dL (32.0-36.0); MEAN CORPUSCULAR VOLUME 90 fl (80-97); PLATELET COUNT 243 10^3/uL (150-450); RED BLOOD COUNT 3.73 10^6/uL (3.72-5.28); RED CELL DISTRIBUTION WIDTH 14.7 % (11.5-14.0); WHITE BLOOD COUNT 9.9 10^3/uL (4.0-10.5)
[2019-03-19 08:09] LABS: ANION GAP 10 (5-19); BLOOD UREA NITROGEN 32 mg/dL (7-20); CALCIUM 9.2 mg/dL (8.4-10.2); CARBON DIOXIDE 28 mmol/L (22-30); CHLORIDE 98 mmol/L (98-107); GLUCOSE 183 mg/dL (75-110); POTASSIUM 4.8 mmol/L (3.6-5.0)
[2019-03-19] MEDS: CILOSTAZOL 100 MG TABLET PO SCH ×2 (09:28→18:17)
[2019-03-19] MEDS: GABAPENTIN 300 MG CAPSULE PO SCH ×2 (09:29→22:30)
[2019-03-19] MEDS: PRENATAL VITAMIN W DHA CAPSULE PO SCH (09:29)
[2019-03-19] MEDS: FAMOTIDINE 20 MG TABLET PO SCH ×2 (09:29→18:17)
[2019-03-19] MEDS: FUROSEMIDE 40 MG TABLET PO SCH (09:29)
[2019-03-19] MEDS: METOLAZONE 2.5 MG TABLET PO SCH (09:29)
[2019-03-19] MEDS: OMEGA-3 ACID ETHYL ESTERS 1 GM CAPSULE PO SCH (09:29)
[2019-03-19] MEDS: POTASSIUM CHLORIDE 10 MEQ TABLET.ER PO SCH ×2 (09:29→18:17)
[2019-03-19] MEDS: OXYCODONE HCL SR 10 MG TABLET PO SCH ×2 (09:30→22:30)
[2019-03-19] MEDS: MAGNESIUM OXIDE 400 MG TABLET PO SCH (09:31)
[2019-03-19] MEDS: SENNOSIDES/DOCUSATE 8.6-50 MG 1 EACH TABLET PO SCH ×2 (09:31→18:17)
[2019-03-19] MEDS: INSULIN LISPRO 100 UNIT/ML 3 ML VIAL SUBCUT SCH ×4 (09:32→22:32)
[2019-03-19] MEDS: INSULIN GLARGINE,HUM.REC.ANLOG 1,000 UNIT/10 ML VIAL SUBCUT SCH ×2 (09:33→22:31)
[2019-03-19] MEDS ORDERED: METOPROLOL TARTRATE PF/INJ 5 MG/5 ML SDV IV PRN (10:18)
[2019-03-19] MEDS ORDERED: HYDRALAZINE HCL INJ/PF 20 MG/1 ML SDV IV PRN (10:18)
[2019-03-19] MEDS: NORMAL SALINE 1000 ML 1,000 ML IV PRN ×2 (10:31→18:21)
--- NOTE | 2019-03-19 12:58 | PDOC PROGRESS REPORT ---
Subjective Progress Note for:: 03/18/19 Subjective:: The patient is an 79-year-old female with a past medical history of CHF, CAD, [place], hypertension, hyperlipidemia, peripheral vascular disease, COPD, TEE (noncompliant with CPAP), insulin-dependent diabetes mellitus, GERD, arthritis, depression, and obesity who was admitted 03/09/2019 for arthritis of the left knee resulting in ambulatory dysfunction. 03/18/2019. No acute events overnight. Patient is off to OR for left knee arthroplasty. Reason For Visit: LEFT KNEE ARTHRITIS Physical Exam Vital Signs: Temp Pulse Resp BP Pulse Ox 98.0 F 71 19 131/41 H 93 03/19/19 08:00 03/19/19 08:00 03/19/19 08:00 03/19/19 08:00 03/19/19 08:00 Intake & Output 03/18/19 03/19/19 03/20/19 06:59 06:59 06:59 Intake Total 720 5249 Output Total 3209 Balance 720 2040 Weight 93.7 kg 91.8 kg General appearance: PRESENT: no acute distress, well-developed, well-nourished Respiratory exam: PRESENT: clear to auscultation keo. ABSENT: rales, rhonchi, wheezes Cardiovascular exam: PRESENT: RRR. ABSENT: diastolic murmur, rubs, systolic murmur GI/Abdominal exam: PRESENT: normal bowel sounds, soft. ABSENT: distended, guarding, mass, organolmegaly, rebound, tenderness Neurological exam: PRESENT: alert, awake, oriented to person, oriented to place, oriented to time, oriented to situation, CN II-XII grossly intact. ABSENT: motor sensory deficit Results Laboratory Results: 03/19/19 07:14 03/19/19 07:14 03/18/19 03/19/19 03/19/19 21:43 07:14 07:14 WBC 12.4 H 9.9 RBC 3.67 L 3.73 Hgb 10.9 L 11.3 L Hct 32.8 L 33.4 L MCV 89 90 MCH 29.8 30.3 MCHC 33.4 33.9 RDW 14.5 H 14.7 H Plt Count 239 243 Sodium 135.9 L Potassium 4.8 Chloride 98 Carbon Dioxide 28 Anion Gap 10 BUN 32 H Creatinine 2.35 H Est GFR ( Amer) 24 L Glucose 183 H Calcium 9.2 03/09/19 16:39 Creatine Kinase 56 Impressions: Chest X-Ray 03/09/19 18:23 IMPRESSION: NO ACUTE RADIOGRAPHIC FINDING IN THE CHEST. Knee X-Ray 03/18/19 08:43 IMPRESSION: Status post left TKA with expected immediate postoperative findi ngs. Assessment and Plan - Diagnosis (1) Atrial fibrillation Qualifiers: Atrial fibrillation type: longstanding persistent Qualified Code(s): I48.11 - Longstanding persistent atrial fibrillation Is this a current diagnosis for this admission?: Yes Plan: Chronic atrial fibrillation; currently rate controlled on her home medication regiment. Holding Coumadin due to planned surgical procedure tomorrow. Currently on Lovenox for coverage. Plan resume of Coumadin; goal INR 2-3. (2) Arthritis of left knee Is this a current diagnosis for this admission?: Yes Plan: Has received surgical clearance by Dr. Chacon. Left knee arthroplasty scheduled today. Follow-up Ortho recommendation. (3) CKD (chronic kidney disease), stage III Is this a current diagnosis for this admission?: Yes Plan: Stable in its usual range (4) Diabetes mellitus type II, controlled Qualifiers: Diabetes mellitus long term care administrator insulin use: with long term care administrator use Diabetes mellitus complication status: with circulatory complication Diabetes mellitus complication detail: with other circulatory complications Qualified Code(s): E11.59 - Type 2 diabetes mellitus with other circulatory complications; Z79.4 - assisted (current) use of insulin Is this a current diagnosis for this admission?: Yes Plan: Patient is placed on a consistent carb diet. Accu-Cheks before meals and at bedtime with sliding scale insulin. Hypoglycemia protocol in place. (5) Obesity (BMI 30-39.9) Is this a current diagnosis for this admission?: Yes Plan: Dietary and lifestyle modification are encouraged. BMI of 35.5.
--- NOTE | 2019-03-19 13:13 | PDOC PROGRESS REPORT ---
Subjective Progress Note for:: 03/19/19 Subjective:: The patient is an 79-year-old female with a past medical history of CHF, CAD, [place], hypertension, hyperlipidemia, peripheral vascular disease, COPD, TEE (noncompliant with CPAP), insulin-dependent diabetes mellitus, GERD, arthritis, depression, and obesity who was admitted 03/09/2019 for arthritis of the left knee resulting in ambulatory dysfunction. 03/18/2019. No acute events overnight. Patient is off to OR for left knee arthroplasty. 03/19/2019. No acute events overnight. Status post left knee arthroplasty. Saw patient while receiving physical therapy. Does not seem to be in acute distress. Endorsing left lower extremity pain. Denies any fever, chills, nausea, vomiting, diarrhea, constipation or any urinary symptoms. Reason For Visit: LEFT KNEE ARTHRITIS Physical Exam Vital Signs: Temp Pulse Resp BP Pulse Ox 98.0 F 71 19 131/41 H 93 03/19/19 08:00 03/19/19 08:00 03/19/19 08:00 03/19/19 08:00 03/19/19 08:00 Intake & Output 03/18/19 03/19/19 03/20/19 06:59 06:59 06:59 Intake Total 720 5249 Output Total 3209 Balance 720 2040 Weight 93.7 kg 91.8 kg General appearance: PRESENT: no acute distress, well-developed, well-nourished Head exam: PRESENT: atraumatic, normocephalic Respiratory exam: PRESENT: clear to auscultation keo. ABSENT: rales, rhonchi, wheezes Cardiovascular exam: PRESENT: irregular rhythm, RRR. ABSENT: diastolic murmur, rubs, systolic murmur GI/Abdominal exam: PRESENT: normal bowel sounds, soft. ABSENT: distended, guarding, mass, organolmegaly, rebound, tenderness Extremities exam: PRESENT: tenderness, other - Left knee dressing in place, no sign of bleeding or infection. Neurovascularly intact. Range of motion limited due to pain.. ABSENT: calf tenderness, clubbing, pedal edema Results Laboratory Results: 03/19/19 07:14 03/19/19 07:14 03/18/19 03/19/19 03/19/19 21:43 07:14 07:14 WBC 12.4 H 9.9 RBC 3.67 L 3.73 Hgb 10.9 L 11.3 L Hct 32.8 L 33.4 L MCV 89 90 MCH 29.8 30.3 MCHC 33.4 33.9 RDW 14.5 H 14.7 H Plt Count 239 243 Sodium 135.9 L Potassium 4.8 Chloride 98 Carbon Dioxide 28 Anion Gap 10 BUN 32 H Creatinine 2.35 H Est GFR ( Amer) 24 L Glucose 183 H Calcium 9.2 03/09/19 16:39 Creatine Kinase 56 Impressions: Chest X-Ray 03/09/19 18:23 IMPRESSION: NO ACUTE RADIOGRAPHIC FINDING IN THE CHEST. Knee X-Ray 03/18/19 08:43 IMPRESSION: Status post left TKA with expected immediate postoperative findings. Assessment and Plan - Diagnosis (1) Atrial fibrillation Qualifiers: Atrial fibrillation type: longstanding persistent Qualified Code(s): I48.11 - Longstanding persistent atrial fibrillation Is this a current diagnosis for this admission?: Yes Plan: Rate controlled. Anticoagulated. Currently off of Coumadin due to left knee arthroplasty. On Lovenox. Will bridge back to Coumadin with an INR goal of 2-2.5. (2) Arthritis of left knee Is this a current diagnosis for this admission?: Yes Plan: Day 1 is status post left knee arthroplasty. Continue pain management and PT OT. Anticipate discharge to rehab. Orthopedic surgery following. Recommendations noted. (3) CKD (chronic kidney disease), stage III Is this a current diagnosis for this admission?: Yes Plan: Slightly worsening of creatinine likely due to NSAIDs and IV vancomycin. Euvolemic. Electrolytes WNL. Hold diuretics. Avoid NSAIDs and other nephrotoxic agents. Cautious volume resuscitation guided by volume status. Monitor electrolytes and volume status. (4) Diabetes mellitus type II, controlled Qualifiers: Diabetes mellitus detention insulin use: with termite inspector use Diabetes mellitus complication status: with circulatory complication Diabetes mellitus complication detail: with other circulatory complications Qualified Code(s): E11.59 - Type 2 diabetes mellitus with other circulatory complications; Z79.4 - terminal makeup operator (current) use of insulin Is this a current diagnosis for this admission?: Yes Plan: Patient is placed on a consistent carb diet. Accu-Cheks before meals and at bedtime with sliding scale insulin. Hypoglycemia protocol in place. (5) Obesity (BMI 30-39.9) Is this a current diagnosis for this admission?: Yes Plan: Dietary and lifestyle modification are encouraged. BMI of 35.5.
[2019-03-19 13:35] LABS: HEMATOCRIT 32.2 % (36.0-47.0); HEMOGLOBIN 10.9 g/dL (12.0-15.5); MEAN CORPUSCULAR HEMOGLOBIN 30.4 pg (27.0-33.4); MEAN CORPUSCULAR HGB CONC 33.9 g/dL (32.0-36.0); MEAN CORPUSCULAR VOLUME 90 fl (80-97); PLATELET COUNT 216 10^3/uL (150-450); RED BLOOD COUNT 3.59 10^6/uL (3.72-5.28); RED CELL DISTRIBUTION WIDTH 14.1 % (11.5-14.0); WHITE BLOOD COUNT 9.8 10^3/uL (4.0-10.5)
[2019-03-19] MEDS: WARFARIN SODIUM 4 MG TABLET PO SCH (22:36)
[2019-03-20] MEDS: NORMAL SALINE 1000 ML 1,000 ML IV PRN ×3 (00:31→21:46)
[2019-03-20] MEDS: PANTOPRAZOLE SODIUM 40 MG TABLET.DR PO SCH (05:08)
--- NOTE | 2019-03-20 06:28 | PDOC PROGRESS REPORT ---
Subjective Progress Note for:: 03/20/19 Reason For Visit: LEFT KNEE ARTHRITIS 79-year-old female now postop day 2 status post left knee arthroplasty. Limited progress with physical therapy. Ongoing complaints of pain. Physical Exam Vital Signs: Temp Pulse Resp BP Pulse Ox 36.6 C 70 17 140/59 H 91 L 03/19/19 20:02 03/19/19 20:02 03/19/19 20:02 03/19/19 20:02 03/19/19 20:02 Intake & Output 03/18/19 03/19/19 03/20/19 06:59 06:59 06:59 Intake Total 720 5249 2435 Output Total 3209 200 Balance 720 2040 2235 Weight 93.7 kg 91.8 kg Physical Exam: Elderly white female lying in hospital bed. Head exam: PRESENT: normocephalic Respiratory exam: PRESENT: unlabored Cardiovascular exam: PRESENT: RRR Pulses: PRESENT: +1 pedal pulses bilateral Vascular exam: PRESENT: normal capillary refill Extremities exam: PRESENT: other - Press of dressing removed from left lower extremity. Underlying OpSite dressings clean dry and intact. Minimal pedal edema. Distal neurovascular examination is intact. Results Laboratory Results: 03/19/19 07:14 03/19/19 03/19/19 03/19/19 07:14 07:14 13:28 WBC 9.9 9.8 RBC 3.73 3.59 L Hgb 11.3 L 10.9 L Hct 33.4 L 32.2 L MCV 90 90 MCH 30.3 30.4 MCHC 33.9 33.9 RDW 14.7 H 14.1 H Plt Count 243 216 Sodium 135.9 L Potassium 4.8 Chloride 98 Carbon Dioxide 28 Anion Gap 10 BUN 32 H Creatinine 2.35 H Est GFR ( Amer) 24 L Glucose 183 H Calcium 9.2 03/09/19 16:39 Creatine Kinase 56 Impressions: Chest X-Ray 03/09/19 18:23 IMPRESSION: NO ACUTE RADIOGRAPHIC FINDING IN THE CHEST. Knee X-Ray 03/18/19 08:43 IMPRESSION: Status post left TKA with expected immediate postoperative findings. Status: Imported from PACS Assessment & Plan - Diagnosis (1) Arthritis of left knee Is this a current diagnosis for this admission?: Yes Plan: Woman and anticoagulation has been initiated. Mobilize with physical therapy on a weightbearing as tolerated basis. Anticipate the need for [facility] facility placement. - Time Time Spent with patient: 15-24 minutes Anticipated discharge: SNF Within: when bed available
[2019-03-20 06:32] LABS: HEMATOCRIT 33.6 % (36.0-47.0); HEMOGLOBIN 11.4 g/dL (12.0-15.5); MEAN CORPUSCULAR HEMOGLOBIN 30.6 pg (27.0-33.4); MEAN CORPUSCULAR VOLUME 90 fl (80-97); PLATELET COUNT 232 10^3/uL (150-450); RED BLOOD COUNT 3.73 10^6/uL (3.72-5.28); RED CELL DISTRIBUTION WIDTH 14.9 % (11.5-14.0); WHITE BLOOD COUNT 10.4 10^3/uL (4.0-10.5)
[2019-03-20 06:36] LABS: INTERNATIONAL RATION (INR) 1.08
[2019-03-20 06:57] LABS: APPEARANCE,URINE SLIGHTLY-CLOUDY; BILIRUBIN,URINE NEGATIVE (NEGATIVE); COLOR,URINE YELLOW; GLUCOSE, URINE NEGATIVE (NEGATIVE); KETONES,URINE NEGATIVE (NEGATIVE); LEUKOCYTE ESTERASE,URINE NEGATIVE (NEGATIVE); NITRITE,URINE NEGATIVE (NEGATIVE); PROTEIN,URINE NEGATIVE (NEGATIVE); URINE SPECIFIC GRAVITY 1.009; UROBILINOGEN,URINE NEGATIVE mg/dL (<2.0)
[2019-03-20 08:10] LABS: ANION GAP 12 (5-19); BLOOD UREA NITROGEN 38 mg/dL (7-20); CALCIUM 8.8 mg/dL (8.4-10.2); CARBON DIOXIDE 23 mmol/L (22-30); CHLORIDE 100 mmol/L (98-107); GLUCOSE 191 mg/dL (75-110); POTASSIUM 5.2 mmol/L (3.6-5.0)
[2019-03-20] MEDS: OXYCODONE HCL IR 5 MG TABLET PO PRN ×2 (08:13→20:24)
[2019-03-20] MEDS: INSULIN LISPRO 100 UNIT/ML 3 ML VIAL SUBCUT SCH ×4 (08:14→21:44)
[2019-03-20] MEDS: ENOXAPARIN SODIUM INJ 100 MG/1 ML DISP.SYRIN SUBCUT SCH (09:50)
[2019-03-20] MEDS: CHOLECALCIFEROL (D3) 1,000 UNIT (25 MCG) TABLET PO SCH (09:51)
[2019-03-20] MEDS: ASCORBIC ACID 500 MG TABLET PO SCH (09:51)
[2019-03-20] MEDS: POTASSIUM CHLORIDE 10 MEQ TABLET.ER PO SCH ×2 (09:51→18:06)
[2019-03-20] MEDS: PRENATAL VITAMIN W DHA CAPSULE PO SCH (09:51)
[2019-03-20] MEDS: OMEGA-3 ACID ETHYL ESTERS 1 GM CAPSULE PO SCH (09:51)
[2019-03-20] MEDS: FERROUS SULFATE 325 MG TABLET PO SCH (09:51)
[2019-03-20] MEDS: SENNOSIDES/DOCUSATE 8.6-50 MG 1 EACH TABLET PO SCH ×2 (09:52→18:06)
[2019-03-20] MEDS: FAMOTIDINE 20 MG TABLET PO SCH ×2 (09:52→18:06)
[2019-03-20] MEDS: GABAPENTIN 300 MG CAPSULE PO SCH ×2 (09:52→21:46)
[2019-03-20] MEDS: CILOSTAZOL 100 MG TABLET PO SCH ×2 (09:52→18:06)
[2019-03-20] MEDS: MAGNESIUM OXIDE 400 MG TABLET PO SCH (09:52)
[2019-03-20] MEDS: INSULIN GLARGINE,HUM.REC.ANLOG 1,000 UNIT/10 ML VIAL SUBCUT SCH ×2 (09:53→21:43)
--- NOTE | 2019-03-20 11:02 | PDOC PROGRESS REPORT ---
Subjective Progress Note for:: 03/20/19 Subjective:: The patient is an 79-year-old female with a past medical history of CHF, CAD, [place], hypertension, hyperlipidemia, peripheral vascular disease, COPD, TEE (noncompliant with CPAP), insulin-dependent diabetes mellitus, GERD, arthritis, depression, and obesity who was admitted 03/09/2019 for arthritis of the left knee resulting in ambulatory dysfunction. 03/18/2019. No acute events overnight. Patient is off to OR for left knee arthroplasty. 03/19/2019. No acute events overnight. Status post left knee arthroplasty. Saw patient while receiving physical therapy. Does not seem to be in acute distress. Endorsing left lower extremity pain. Denies any fever, chills, nausea, vomiting, diarrhea, constipation or any urinary symptoms. 03/20/2020. No acute events overnight. Still complaining of severe left knee pain. Denies any fever, chills, nausea, vomiting, diarrhea, constipation or any urinary symptoms. Reason For Visit: LEFT KNEE ARTHRITIS Physical Exam Vital Signs: Temp Pulse Resp BP Pulse Ox 98.5 F 70 19 154/56 H 96 03/20/19 08:00 03/20/19 08:00 03/20/19 08:00 03/20/19 08:00 03/20/19 08:00 Intake & Output 03/19/19 03/20/19 03/21/19 06:59 06:59 06:59 Intake Total 5249 2435 Output Total 3209 200 Balance 2040 2235 Weight 91.8 kg 91.3 kg General appearance: PRESENT: no acute distress, obese, well-developed, well- nourished Respiratory exam: PRESENT: clear to auscultation keo. ABSENT: rales, rhonchi, wheezes Cardiovascular exam: PRESENT: irregular rhythm. ABSENT: diastolic murmur, rubs, systolic murmur Musculoskeletal exam: PRESENT: tenderness - Exquisite tenderness over right lateral aspect of the left knee. Neurovascularly intact. Limited range of motion due to pain. Neurological exam: PRESENT: alert, awake, oriented to person, oriented to place, oriented to time, CN II-XII grossly intact. ABSENT: motor sensory deficit Results Laboratory Results: 03/20/19 06:12 03/20/19 06:12 03/19/19 03/20/19 03/20/19 13:28 06:12 06:12 WBC 9.8 10.4 RBC 3.59 L 3.73 Hgb 10.9 L 11.4 L Hct 32.2 L 33.6 L MCV 90 90 MCH 30.4 30.6 MCHC 33.9 34.0 RDW 14.1 H 14.9 H Plt Count 216 232 Sodium 135.4 L Potassium 5.2 H Chloride 100 Carbon Dioxide 23 Anion Gap 12 BUN 38 H Creatinine 2.51 H Est GFR ( Amer) 22 L Glucose 191 H Calcium 8.8 Urine Color Urine Appearance Urine pH Ur Specific [place] Urine Protein Urine Glucose (UA) Urine Ketones Urine Blood Urine Nitrite Ur Leukocyte Esterase Urine WBC (Auto) Urine RBC (Auto) 03/20/19 06:30 WBC RBC Hgb Hct MCV MCH MCHC RDW Plt Count Sodium Potassium Chloride Carbon Dioxide Anion Gap BUN Creatinine Est GFR ( Amer) Glucose Calcium Urine Color YELLOW Urine Appearance SLIGHTLY-CLOUDY Urine pH 5.0 Ur Specific [place] 1.009 Urine Protein NEGATIVE Urine Glucose (UA) NEGATIVE Urine Ketones NEGATIVE Urine Blood NEGATIVE Urine Nitrite NEGATIVE Ur Leukocyte Esterase NEGATIVE Urine WBC (Auto) 6 Urine RBC (Auto) 2 03/09/19 16:39 Creatine Kinase 56 Impressions: Chest X-Ray 03/09/19 18:23 IMPRESSION: NO ACUTE RADIOGRAPHIC FINDING IN THE CHEST. Knee X-Ray 03/18/19 08:43 IMPRESSION: Status post left TKA with expected immediate postoperative findings. Assessment and Plan - Diagnosis (1) Atrial fibrillation Qualifiers: Atrial fibrillation type: longstanding persistent Qualified Code(s): I48.11 - Longstanding persistent atrial fibrillation Is this a current diagnosis for this admission?: Yes Plan: Rate controlled. Anticoagulated. Continue on Lovenox bridge to Coumadin INR goal of 2-2.5. For some reason patient is not on beta-blockers or calcium channel blockers. I discussed this with patient and she is stating that she was told by her reliability manager that she did not need them. (2) Arthritis of left knee Is this a current diagnosis for this admission?: Yes Plan: Day 2 is status post left knee arthroplasty. Continue pain management and PT OT. Anticipate discharge to rehab. Orthopedic surgery following. Recommendations noted. (3) CKD (chronic kidney disease), stage III Is this a current diagnosis for this admission?: Yes Plan: Slightly worsening of creatinine likely due to NSAIDs and IV vancomycin. Euvolemic. Electrolytes WNL. Hold diuretics. Avoid NSAIDs and other nephrotoxic agents. Cautious volume resuscitation guided by volume status. Monitor electrolytes and volume status. (4) Diabetes mellitus type II, controlled Qualifiers: Diabetes mellitus terminologist insulin use: with terminologist use Diabetes mellitus complication status: with circulatory complication Diabetes mellitus complication detail: with other circulatory complications Qualified Code(s): E11.59 - Type 2 diabetes mellitus with other circulatory complications; Z79.4 - terminologist (current) use of insulin Is this a current diagnosis for this admission?: Yes Plan: Patient is placed on a consistent carb diet. Accu-Cheks before meals and at bedtime with sliding scale insulin. Hypoglycemia protocol in place. (5) Obesity (BMI 30-39.9) Is this a current diagnosis for this admission?: Yes Plan: Dietary and lifestyle modification are encouraged. BMI of 35.5.
[2019-03-20] MEDS: WARFARIN SODIUM 4 MG TABLET PO SCH (21:46)
[2019-03-21 05:12] LABS: HEMATOCRIT 32.9 % (36.0-47.0); HEMOGLOBIN 11.1 g/dL (12.0-15.5); MEAN CORPUSCULAR HEMOGLOBIN 30.3 pg (27.0-33.4); MEAN CORPUSCULAR HGB CONC 33.8 g/dL (32.0-36.0); MEAN CORPUSCULAR VOLUME 90 fl (80-97); PLATELET COUNT 240 10^3/uL (150-450); RED BLOOD COUNT 3.67 10^6/uL (3.72-5.28); RED CELL DISTRIBUTION WIDTH 14.8 % (11.5-14.0); WHITE BLOOD COUNT 10.3 10^3/uL (4.0-10.5)
[2019-03-21 05:24] LABS: INTERNATIONAL RATION (INR) 1.15; PROTHROMBIN TIME 14.8 SEC (11.4-15.4)
[2019-03-21] MEDS: OXYCODONE HCL IR 5 MG TABLET PO PRN (05:32)
[2019-03-21] MEDS: PANTOPRAZOLE SODIUM 40 MG TABLET.DR PO SCH (05:32)
[2019-03-21 05:38] LABS: ALBUMIN 3.2 g/dL (3.5-5.0); ALKALINE PHOSPHATASE 85 U/L (38-126); ANION GAP 10 (5-19); ASPARTATE AMINO TRANSFERASE 53 U/L (14-36); BILIRUBIN,DIRECT 0.2 mg/dL (0.0-0.4); BILIRUBIN,TOTAL 0.6 mg/dL (0.2-1.3); BLOOD UREA NITROGEN 37 mg/dL (7-20); CALCIUM 8.9 mg/dL (8.4-10.2); CARBON DIOXIDE 22 mmol/L (22-30); CHLORIDE 104 mmol/L (98-107); GLUCOSE 112 mg/dL (75-110); POTASSIUM 4.9 mmol/L (3.6-5.0); TOTAL PROTEIN 6.2 g/dL (6.3-8.2)
--- NOTE | 2019-03-21 07:00 | PDOC PROGRESS REPORT ---
Subjective Progress Note for:: 03/21/19 Reason For Visit: LEFT KNEE ARTHRITIS 79-year-old white female status post left knee arthroplasty. Patient is alert and appropriate this morning. Physical therapy note yesterday documents confusion. Physical Exam Vital Signs: Temp Pulse Resp BP Pulse Ox 37.0 C 70 17 128/58 H 96 03/21/19 00:25 03/21/19 00:25 03/21/19 00:25 03/21/19 00:25 03/21/19 05:41 Intake & Output 03/19/19 03/20/19 03/21/19 06:59 06:59 06:59 Intake Total 5249 2435 2013 Output Total 3209 200 0 Balance 0 2235 2013 Weight 91.8 kg 91.3 kg 96 kg Physical Exam: Overweight middle-aged white female lying comfortably in hospital bed. General appearance: PRESENT: mild distress Head exam: PRESENT: normocephalic Respiratory exam: PRESENT: unlabored Vascular exam: PRESENT: normal capillary refill GI/Abdominal exam: PRESENT: soft Rectal exam: PRESENT: deferred Musculoskeletal exam: PRESENT: other - Left knee dressing clean dry and intact. Patient winces when I lightly touch the left knee area. Neurological exam: PRESENT: alert, awake, oriented to person, oriented to place, oriented to time, oriented to situation. ABSENT: motor sensory deficit Psychiatric exam: PRESENT: appropriate affect, normal mood. ABSENT: homicidal ideation, suicidal ideation Skin exam: PRESENT: dry, intact, warm. ABSENT: cyanosis, rash Results Laboratory Results: 03/21/19 04:57 03/21/19 04:57 03/20/19 03/21/19 03/21/19 06:12 04:57 04:57 WBC 10.3 RBC 3.67 L Hgb 11.1 L Hct 32.9 L MCV 90 MCH 30.3 MCHC 33.8 RDW 14.8 H Plt Count 240 Sodium 135.4 L 135.9 L Potassium 5.2 H 4.9 Chloride 100 104 Carbon Dioxide 23 22 Anion Gap 12 10 BUN 38 H 37 H Creatinine 2.51 H 2.02 H Est GFR ( Amer) 22 L 29 L Glucose 191 H 112 H Calcium 8.8 8.9 Magnesium 2.1 Total Bilirubin 0.6 AST 53 H Alkaline Phosphatase 85 Total Protein 6.2 L Albumin 3.2 L 03/09/19 16:39 Creatine Kinase 56 Impressions: Chest X-Ray 03/09/19 18:23 IMPRESSION: NO ACUTE RADIOGRAPHIC FINDING IN THE CHEST. Knee X-Ray 03/18/19 08:43 IMPRESSION: Status post left TKA with expected immediate postoperative fi ndings. Status: Imported from PACS Assessment & Plan - Diagnosis (1) Arthritis of left knee Is this a current diagnosis for this admission?: Yes Plan: 79-year-old female status post left knee arthroplasty with relatively slow recovery. Continue with physical therapy for range of motion strengthening and weightbearing as tolerated relation. Anticipate need for shelter facility placement. - Time Time Spent with patient: 15-24 minutes Anticipated discharge: SNF Within: when bed available
[2019-03-21] MEDS: INSULIN LISPRO 100 UNIT/ML 3 ML VIAL SUBCUT SCH ×4 (09:03→21:54)
--- NOTE | 2019-03-21 11:03 | RADIOLOGY REPORT (SQ) ---
EXAM DESCRIPTION: CT HEAD WITHOUT COMPLETED DATE/TIME: 03/21/2019 10:23 am REASON FOR STUDY: AMS I48.20 CHRONIC ATRIAL FIBRILLATION, UNSPECIFIED E11.9 TYPE 2 DIABETES [facility] WITHOUT COMPLICATIONS Z79.01 NURSING HOME (CURRENT) USE OF ANTICOAGULANTS COMPARISON: CT brain 02/17/2016, 12/14/2014 TECHNIQUE: Axial images acquired through the brain without intravenous contrast. Images reviewed wi th bone, brain and subdural windows. Additional sagittal and coronal reconstructions were generated. Images stored on PACS. All CT scanners at this facility use dose modulation, iterative reconstruction, and/or weight based d osing when appropriate to reduce radiation dose to as low as reasonably achievable (ALARA). [facility]: Dose Right [facility]: CareDose [facility]: Dose Right [facility]: Teradose 4D [facility]: [employer] RADIATION DOSE: CT Rad equipment meets quality standard of care and radiation dose reduction techniq ues were employed. CTDIvol: 53.2 mGy. DLP: 937 mGy-cm. mGy. LIMITATIONS: Mild motion artifact FINDINGS: VENTRICLES: Normal size and contour. CEREBRUM: No CT evidence of acute large territory ischemic change, acute intracranial hemorrhage, mas s effect, or midline shift. Old infarcts in the right and left frontal deep periventricular white mat ter. CEREBELLUM: No masses. No hemorrhage. No alteration of density. No evidence for acute infarction. EXTRAAXIAL SPACES: No fluid collections. No masses. ORBITS AND GLOBE: Post cataract surgery CALVARIUM: No fracture. PARANASAL SINUSES: No fluid or mucosal thickening. SOFT TISSUES: No mass or hematoma. OTHER: No other significant finding. IMPRESSION: No acute findings. 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 COMMENT: Quality ID # [id number]: Final reports with documentation of one or more dose reduction techniques (e.g., Automated exposure control, adjustment of the mA and/or kV according to patient size, use of iterative reconstruction technique) TECHNICAL DOCUMENTATION: JOB ID: [id number]- All Rights Reserved Reading location - IP/workstation name: [email or web address]
--- NOTE | 2019-03-21 12:17 | PDOC PROGRESS REPORT ---
Subjective Progress Note for:: 03/21/19 Subjective:: The patient is an 79-year-old female with a past medical history of CHF, CAD, ND, hypertension, hyperlipidemia, peripheral vascular disease, COPD, TEE (noncompliant with CPAP), insulin-dependent diabetes mellitus, GERD, arthritis, depression, and obesity who was admitted 03/09/2019 for arthritis of the left knee resulting in ambulatory dysfunction. 03/18/2019. No acute events overnight. Patient is off to OR for left knee arthroplasty. 03/19/2019. No acute events overnight. Status post left knee arthroplasty. Saw patient while receiving physical therapy. Does not seem to be in acute distress. Endorsing left lower extremity pain. Denies any fever, chills, nausea, vomiting, diarrhea, constipation or any urinary symptoms. 03/20/2020. No acute events overnight. Still complaining of severe left knee pain. Denies any fever, chills, nausea, vomiting, diarrhea, constipation or any urinary symptoms. 03/21/2019. Patient seems confused today. Lethargic but arousable, only oriented to self. Does not provide much information if she has pain. Does not seem to be in an acute distress. Does follow command. Reason For Visit: LEFT KNEE ARTHRITIS Physical Exam Vital Signs: Temp Pulse Resp BP Pulse Ox 98.3 F 70 19 140/88 H 93 03/21/19 08:35 03/21/19 08:35 03/21/19 08:35 03/21/19 08:35 03/21/19 08:35 Intake & Output 03/20/19 03/21/19 03/22/19 06:59 06:59 06:59 Intake Total 2435 2013 Output Total 200 0 Balance 2235 2013 Weight 91.3 kg 96 kg General appearance: PRESENT: no acute distress, well-developed, well-nourished Head exam: PRESENT: atraumatic, normocephalic Respiratory exam: PRESENT: clear to auscultation keo. ABSENT: rales, rhonchi, wheezes Cardiovascular exam: PRESENT: RRR. ABSENT: diastolic murmur, rubs, systolic murmur GI/Abdominal exam: PRESENT: normal bowel sounds, soft. ABSENT: distended, guarding, mass, organolmegaly, rebound, tenderness Neurological exam: PRESENT: altered, oriented to person, CN II-XII grossly intact Results Laboratory Results: 03/21/19 04:57 03/21/19 04:57 03/21/19 03/21/19 04:57 04:57 WBC 10.3 RBC 3.67 L Hgb 11.1 L Hct 32.9 L MCV 90 MCH 30.3 MCHC 33.8 RDW 14.8 H Plt Count 240 Sodium 135.9 L Potassium 4.9 Chloride 104 Carbon Dioxide 22 Anion Gap 10 BUN 37 H Creatinine 2.02 H Est GFR ( Amer) 29 L Glucose 112 H Calcium 8.9 Magnesium 2.1 Total Bilirubin 0.6 AST 53 H Alkaline Phosphatase 85 Total Protein 6.2 L Albumin 3.2 L 03/09/19 16:39 Creatine Kinase 56 Impressions: Chest X-Ray 03/09/19 18:23 IMPRESSION: NO ACUTE RADIOGRAPHIC FINDING IN THE CHEST. Knee X-Ray 03/18/19 08:43 IMPRESSION: Status post left TKA with expected immediate postoperative findin gs. Head CT 03/21/19 08:29 IMPRESSION: No acute findings. 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 Assessment and Plan - Diagnosis (1) Altered mental status Qualifiers: Altered mental status type: delirium Qualified Code(s): R41.0 - Disorientation, unspecified Is this a current diagnosis for this admission?: Yes Plan: Acute metabolic encephalopathy most likely drug-induced. Patient has been receiving benzodiazepine and opiates for left knee arthroplasty and management of her pain. At baseline patient is alert oriented x3. Electrolytes are WNL. UA negative. WBC WNL. CT head negative for any acute changes. DC benzos and opioids. We will give 1 dose of Narcan. Pending ABG at the time of dictation. Implement fall, seizure precautions. (2) Atrial fibrillation Qualifiers: Atrial fibrillation type: longstanding persistent Qualified Code(s): I48.11 - Longstanding persistent atrial fibrillation Is this a current diagnosis for this admission?: Yes Plan: Rate controlled. Anticoagulated. Continue on Lovenox bridge to Coumadin INR goal of 2-2.5. For some reason patient is not on beta-blockers or calcium channel blockers. I discussed this with patient and she is stating that she was told by her c ardiologist that she did not need them. (3) Arthritis of left knee Is this a current diagnosis for this admission?: Yes Plan: Day 3 is status post left knee arthroplasty. Continue pain management and PT OT. Anticipate discharge to rehab. Orthopedic surgery following. Recommendations noted. (4) CKD (chronic kidney disease), stage III Is this a current diagnosis for this admission?: Yes Plan: Slightly worsening of creatinine likely due to NSAIDs and IV vancomycin. Euvolemic. Electrolytes WNL. Hold diuretics. Avoid NSAIDs and other nephrotoxic agents. Cautious volume resuscitation guided by volume status. Monitor electrolytes and volume status. (5) Diabetes mellitus type II, controlled Qualifiers: Diabetes mellitus prison insulin use: with prison use Diabetes mellitus complication status: with circulatory complication Diabetes mellitus complication detail: with other circulatory complications Qualified Code(s): E11.59 - Type 2 diabetes mellitus with other circulatory complications; Z79.4 - ferry terminal agent (current) use of insulin Is this a current diagnosis for this admission?: Yes Plan: Patient is placed on a consistent carb diet. Accu-Cheks before meals and at bedtime with sliding scale insulin. Hypoglycemia protocol in place. (6) Obesity (BMI 30-39.9) Is this a current diagnosis for this admission?: Yes Plan: Dietary and lifestyle modification are encouraged. BMI of 35.5. (7) Constipation Qualifiers: Constipation type: drug induced constipation Qualified Code(s): K59.03 - Drug induced constipation Is this a current diagnosis for this admission?: Yes Plan: Likely drug-induced. Last bowel movement 03/18/2019. Will start on bowel regimen.
[2019-03-21] MEDS: ENOXAPARIN SODIUM INJ 100 MG/1 ML DISP.SYRIN SUBCUT SCH (12:26)
[2019-03-21] MEDS: MAGNESIUM OXIDE 400 MG TABLET PO SCH (12:27)
[2019-03-21] MEDS: FAMOTIDINE 20 MG TABLET PO SCH ×2 (12:27→18:14)
[2019-03-21] MEDS: GABAPENTIN 300 MG CAPSULE PO SCH ×2 (12:27→21:58)
[2019-03-21] MEDS: PRENATAL VITAMIN W DHA CAPSULE PO SCH (12:27)
[2019-03-21] MEDS: INSULIN GLARGINE,HUM.REC.ANLOG 1,000 UNIT/10 ML VIAL SUBCUT SCH ×2 (12:28→21:55)
[2019-03-21] MEDS: OMEGA-3 ACID ETHYL ESTERS 1 GM CAPSULE PO SCH (12:28)
[2019-03-21] MEDS: CILOSTAZOL 100 MG TABLET PO SCH ×2 (12:28→20:57)
[2019-03-21] MEDS: POTASSIUM CHLORIDE 10 MEQ TABLET.ER PO SCH ×2 (12:28→18:13)
[2019-03-21] MEDS ORDERED: NALOXONE HCL INJ/PF 0.4 MG/1 ML SDV IV ONE (13:30)
[2019-03-21] MEDS ORDERED: LACTULOSE SYRUP 20 GM/30 ML UDCUP PR ONE (13:30)
[2019-03-21] MEDS: SENNOSIDES/DOCUSATE 8.6-50 MG 1 EACH TABLET PO SCH ×2 (14:04→18:14)
[2019-03-21 14:23] LABS: ARTERIAL BLOOD BASE EXCESS -2.3 mmol/L; ARTERIAL BLOOD H2CO3 1.07 mmol/L (1.05-1.35); ARTERIAL BLOOD O2 SATURATION 94.7 % (94-98); ARTERIAL BLOOD PCO2 35.7 mmHg (35-45); ARTERIAL BLOOD PH 7.41 (7.35-7.45); ARTERIAL BLOOD PO2 72.1 mmHg (80-100); ARTERIAL BLOOD TOTAL CO2 23.1 mmol/L (21-25)
[2019-03-21 14:24] LABS: ARTERIAL BLOOD FIO2 2L
[2019-03-21] MEDS: NORMAL SALINE 1000 ML 1,000 ML IV PRN (18:19)
[2019-03-21 21:26] LABS: HEMATOCRIT 31.4 % (36.0-47.0); HEMOGLOBIN 10.5 g/dL (12.0-15.5); MEAN CORPUSCULAR HEMOGLOBIN 30.2 pg (27.0-33.4); MEAN CORPUSCULAR HGB CONC 33.3 g/dL (32.0-36.0); MEAN CORPUSCULAR VOLUME 91 fl (80-97); PLATELET COUNT 263 10^3/uL (150-450); RED BLOOD COUNT 3.46 10^6/uL (3.72-5.28); RED CELL DISTRIBUTION WIDTH 14.1 % (11.5-14.0); WHITE BLOOD COUNT 9.9 10^3/uL (4.0-10.5)
[2019-03-21] MEDS: WARFARIN SODIUM 4 MG TABLET PO SCH (21:58)
[2019-03-22] MEDS: PANTOPRAZOLE SODIUM 40 MG TABLET.DR PO SCH (05:14)
[2019-03-22] MEDS: NORMAL SALINE 1000 ML 1,000 ML IV PRN ×2 (05:14→16:06)
[2019-03-22 06:35] LABS: ABSOLUTE EOSINOPHILS # (AUTO) 0.5 10^3/uL (0.0-0.6); ABSOLUTE LYMPHOCYTES (AUTO) 1.2 10^3/uL (0.5-4.7); ABSOLUTE NEUT (AUTO) 5.6 10^3/uL (1.7-8.2); BASOPHILS % (AUTO) 0.5 % (0-2); EOSINOPHILS % (AUTO) 5.6 % (0-6); HEMATOCRIT 30.6 % (36.0-47.0); HEMOGLOBIN 10.2 g/dL (12.0-15.5); LYMPHOCYTES % (AUTO) 14.9 % (13-45); MEAN CORPUSCULAR HEMOGLOBIN 30.1 pg (27.0-33.4); MEAN CORPUSCULAR HGB CONC 33.4 g/dL (32.0-36.0); MEAN CORPUSCULAR VOLUME 90 fl (80-97); MONOCYTES % (AUTO) 11.5 % (3-13); PLATELET COUNT 245 10^3/uL (150-450); RED CELL DISTRIBUTION WIDTH 14.1 % (11.5-14.0); SEGMENTED NEUTROPHILS % (AUTO) 67.5 % (42-78); TOTAL CELLS COUNTED % (AUTO) 100 %; WHITE BLOOD COUNT 8.3 10^3/uL (4.0-10.5)
[2019-03-22 06:42] LABS: INTERNATIONAL RATION (INR) 1.24; PROTHROMBIN TIME 15.7 SEC (11.4-15.4)
[2019-03-22 06:53] LABS: ALBUMIN 2.7 g/dL (3.5-5.0); ALKALINE PHOSPHATASE 73 U/L (38-126); ANION GAP 6 (5-19); ASPARTATE AMINO TRANSFERASE 41 U/L (14-36); BILIRUBIN,DIRECT 0.2 mg/dL (0.0-0.4); BILIRUBIN,TOTAL 0.6 mg/dL (0.2-1.3); BLOOD UREA NITROGEN 32 mg/dL (7-20); CALCIUM 8.9 mg/dL (8.4-10.2); CARBON DIOXIDE 25 mmol/L (22-30); CHLORIDE 108 mmol/L (98-107); GLUCOSE 77 mg/dL (75-110); POTASSIUM 4.1 mmol/L (3.6-5.0); TOTAL PROTEIN 5.6 g/dL (6.3-8.2)
[2019-03-22] MEDS: INSULIN LISPRO 100 UNIT/ML 3 ML VIAL SUBCUT SCH ×4 (07:47→22:03)
[2019-03-22] MEDS: ACETAMINOPHEN 325 MG TABLET PO PRN ×2 (08:25→22:05)
--- NOTE | 2019-03-22 10:00 | PDOC PROGRESS REPORT ---
Subjective Progress Note for:: 03/22/19 Reason For Visit: LEFT KNEE ARTHRITIS 79-year-old female now postop day 4 status post left knee arthroplasty. Recent mental status changes attributed to polypharmacy. This is been adjusted and patient's mental status is considerably cleared from yesterday as reported by her family. Physical Exam Vital Signs: Temp Pulse Resp BP Pulse Ox 36.8 C 70 18 139/50 H 100 03/22/19 07:49 03/22/19 07:49 03/22/19 07:49 03/22/19 07:49 03/22/19 07:49 Intake & Output 03/21/19 03/22/19 03/23/19 06:59 06:59 06:59 Intake Total 2013 1399 Output Total 0 Balance 2013 1400 Weight 96 kg 95.4 kg General appearance: PRESENT: no acute distress Head exam: PRESENT: normocephalic Extremities exam: PRESENT: other - Left knee dressing clean dry and intact. Minimal pedal edema. Distal neurovascular examination is intact. Results Laboratory Results: 03/22/19 06:25 03/22/19 06:25 03/21/19 03/21/19 03/22/19 14:05 21:00 06:25 WBC 9.9 8.3 RBC 3.46 L 3.40 L Hgb 10.5 L 10.2 L Hct 31.4 L 30.6 L MCV 91 90 MCH 30.2 30.1 MCHC 33.3 33.4 RDW 14.1 H 14.1 H Plt Count 263 245 Seg Neutrophils % 67.5 Carbonic Acid 1.07 HCO3/H2CO3 Ratio 20:1 ABG pH 7.41 ABG pCO2 35.7 ABG pO2 72.1 L ABG HCO3 22.0 ABG O2 Saturation 94.7 ABG Base Excess -2.3 FiO2 2L Sodium Potassium Chloride Carbon Dioxide Anion Gap BUN Creatinine Est GFR ( Amer) Glucose Calcium Magnesium Total Bilirubin AST Alkaline Phosphatase Total Protein Albumin 03/22/19 06:25 WBC RBC Hgb Hct MCV MCH MCHC RDW Plt Count Seg Neutrophils % Carbonic Acid HCO3/H2CO3 Ratio ABG pH ABG pCO2 ABG pO2 ABG HCO3 ABG O2 Saturation ABG Base Excess FiO2 Sodium 138.6 Potassium 4.1 Chloride 108 H Carbon Dioxide 25 Anion Gap 6 BUN 32 H Creatinine 1.46 H Est GFR ( Amer) 42 L Glucose 77 Calcium 8.9 Magnesium 2.2 Total Bilirubin 0.6 AST 41 H Alkaline Phosphatase 73 Total Protein 5.6 L Albumin 2.7 L 03/09/19 16:39 Creatine Kinase 56 Impressions: Chest X-Ray 03/09/19 18:23 IMPRESSION: NO ACUTE RADIOGRAPHIC FINDING IN THE CHEST. Knee X-Ray 03/18/19 08:43 IMPRESSION: Status post left TKA with expected immediate postoperative find ings. Head CT 03/21/19 08:29 IMPRESSION: No acute findings. 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 Status: Imported from PACS Assessment & Plan - Diagnosis (1) Arthritis of left knee Is this a current diagnosis for this admission?: Yes Plan: Mobilization with physical therapy has been relatively slow and hampered by mental status changes. Now that these have cleared hopefully progress can be made with physical therapy. Anticipate the need for halfway facility placement. - Time Time Spent with patient: 15-24 minutes Anticipated discharge: SNF Within: when bed available
[2019-03-22] MEDS: PRENATAL VITAMIN W DHA CAPSULE PO SCH (11:19)
[2019-03-22] MEDS: OMEGA-3 ACID ETHYL ESTERS 1 GM CAPSULE PO SCH (11:19)
[2019-03-22] MEDS: FAMOTIDINE 20 MG TABLET PO SCH ×2 (11:19→17:54)
[2019-03-22] MEDS: SENNOSIDES/DOCUSATE 8.6-50 MG 1 EACH TABLET PO SCH ×2 (11:19→17:55)
[2019-03-22] MEDS: MAGNESIUM OXIDE 400 MG TABLET PO SCH (11:20)
[2019-03-22] MEDS: POTASSIUM CHLORIDE 10 MEQ TABLET.ER PO SCH ×2 (11:20→17:55)
[2019-03-22] MEDS: GABAPENTIN 300 MG CAPSULE PO SCH ×2 (11:20→22:02)
[2019-03-22] MEDS: INSULIN GLARGINE,HUM.REC.ANLOG 1,000 UNIT/10 ML VIAL SUBCUT SCH ×2 (11:21→22:03)
[2019-03-22] MEDS: ENOXAPARIN SODIUM INJ 100 MG/1 ML DISP.SYRIN SUBCUT SCH (11:21)
[2019-03-22] MEDS: CILOSTAZOL 100 MG TABLET PO SCH ×2 (13:42→17:54)
[2019-03-22 13:53] LABS: HEMATOCRIT 28.7 % (36.0-47.0); HEMOGLOBIN 9.9 g/dL (12.0-15.5); MEAN CORPUSCULAR HEMOGLOBIN 30.6 pg (27.0-33.4); MEAN CORPUSCULAR HGB CONC 34.4 g/dL (32.0-36.0); MEAN CORPUSCULAR VOLUME 89 fl (80-97); PLATELET COUNT 263 10^3/uL (150-450); RED BLOOD COUNT 3.22 10^6/uL (3.72-5.28); RED CELL DISTRIBUTION WIDTH 14.4 % (11.5-14.0); WHITE BLOOD COUNT 7.6 10^3/uL (4.0-10.5)
--- NOTE | 2019-03-22 16:00 | PDOC PROGRESS REPORT ---
Subjective Progress Note for:: 03/22/19 Subjective:: The patient is an 79-year-old female with a past medical history of CHF, CAD, [place], hypertension, hyperlipidemia, peripheral vascular disease, COPD, TEE (noncompliant with CPAP), insulin-dependent diabetes mellitus, GERD, arthritis, depression, and obesity who was admitted 03/09/2019 for arthritis of the left knee resulting in ambulatory dysfunction. 03/18/2019. No acute events overnight. Patient is off to OR for left knee arthroplasty. 03/19/2019. No acute events overnight. Status post left knee arthroplasty. Saw patient while receiving physical therapy. Does not seem to be in acute distress. Endorsing left lower extremity pain. Denies any fever, chills, nausea, vomiting, diarrhea, constipation or any urinary symptoms. 03/20/2020. No acute events overnight. Still complaining of severe left knee pain. Denies any fever, chills, nausea, vomiting, diarrhea, constipation or any urinary symptoms. 03/21/2019. Patient seems confused today. Lethargic but arousable, only oriented to self. Does not provide much information if she has pain. Does not seem to be in an acute distress. Does follow command. 03/22/2019. No acute events overnight. Patient surrounded by family, does not appear in acute distress, patient alert oriented x3, back to baseline as per family. Reason For Visit: LEFT KNEE ARTHRITIS Physical Exam Vital Signs: Temp Pulse Resp BP Pulse Ox 97.6 F 70 16 141/42 H 99 03/22/19 11:47 03/22/19 11:47 03/22/19 11:47 03/22/19 11:47 03/22/19 11:47 Intake & Output 03/21/19 03/22/19 03/23/19 06:59 06:59 06:59 Intake Total 2013 1400 345 Output Total 0 Balance 2013 1400 345 Weight 96 kg 95.4 kg General appearance: PRESENT: no acute distress, well-developed, well-nourished Head exam: PRESENT: atraumatic, normocephalic Respiratory exam: PRESENT: clear to auscultation keo. ABSENT: rales, rhonchi, wheezes Cardiovascular exam: PRESENT: RRR. ABSENT: diastolic murmur, rubs, systolic murmur GI/Abdominal exam: PRESENT: normal bowel sounds, soft. ABSENT: distended, guarding, mass, organolmegaly, rebound, tenderness Musculoskeletal exam: PRESENT: tenderness - Tenderness. Neurological exam: PRESENT: alert, awake, oriented to person, oriented to place, oriented to time, CN II-XII grossly intact. ABSENT: motor sensory deficit Results Laboratory Results: 03/22/19 13:30 03/22/19 06:25 03/21/19 03/22/19 03/22/19 21:00 06:25 06:25 WBC 9.9 8.3 RBC 3.46 L 3.40 L Hgb 10.5 L 10.2 L Hct 31.4 L 30.6 L MCV 91 90 MCH 30.2 30.1 MCHC 33.3 33.4 RDW 14.1 H 14.1 H Plt Count 263 245 Seg Neutrophils % 67.5 Sodium 138.6 Potassium 4.1 Chloride 108 H Carbon Dioxide 25 Anion Gap 6 BUN 32 H Creatinine 1.46 H Est GFR ( Amer) 42 L Glucose 77 Calcium 8.9 Magnesium 2.2 Total Bilirubin 0.6 AST 41 H Alkaline Phosphatase 73 Total Protein 5.6 L Albumin 2.7 L 03/22/19 13:30 WBC 7.6 RBC 3.22 L Hgb 9.9 L Hct 28.7 L MCV 89 MCH 30.6 MCHC 34.4 RDW 14.4 H Plt Count 263 Seg Neutrophils % Sodium Potassium Chloride Carbon Dioxide Anion Gap BUN Creatinine Est GFR ( Amer) Glucose Calcium Magnesium Total Bilirubin AST Alkaline Phosphatase Total Protein Albumin 03/09/19 16:39 Creatine Kinase 56 Impressions: Chest X-Ray 03/09/19 18:23 IMPRESSION: NO ACUTE RADIOGRAPHIC FINDING IN THE CHEST. Knee X-Ray 03/18/19 08:43 IMPRESSION: Status post left TKA with expected immediate postoperative findings. Head CT 03/21/19 08:29 IMPRESSION: No acute findings. 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 Assessment and Plan - Diagnosis (1) Atrial fibrillation Qualifiers: Atrial fibrillation type: longstanding persistent Qualified Code(s): I48.11 - Longstanding persistent atrial fibrillation Is this a current diagnosis for this admission?: Yes Plan: Rate controlled. Anticoagulated. Continue on Lovenox bridge to Coumadin INR goal of 2-2.5. For some reason patient is not on beta-blockers or calcium channel blockers. I discussed this with patient and she is stating that she was told by her trackmobile operator that she did not need them. (2) Altered mental status Qualifiers: Altered mental status type: delirium Qualified Code(s): R41.0 - Disori entation, unspecified Is this a current diagnosis for this admission?: Yes Plan: Resolved. Alert and oriented x3. Surrounded by family. Back to baseline as per family. This was most likely due to acute metabolic encephalopathy most likely drug- induced. Patient has been receiving benzodiazepine and opiates for left knee arthroplasty and management of her pain. Electrolytes are WNL. UA negative. WBC WNL. CT head negative for any acute changes. Avoid benzos and opioids. Continue fall, seizure precaution. Continue PT and OT. (3) Arthritis of left knee Is this a current diagnosis for this admission?: Yes Plan: Day 4 is status post left knee arthroplasty. Continue pain management and PT OT. Pending placement to rehab. Orthopedic surgery following. Recommendations noted. (4) CKD (chronic kidney disease), stage III Is this a current diagnosis for this admission?: Yes Plan: Kidney function back to baseline. Had slightly worsening of creatinine likely due to NSAIDs and IV vancomycin. Euvolemic. Electrolytes WNL. Avoid NSAIDs and other nephrotoxic agents. (5) Diabetes mellitus type II, controlled Qualifiers: Diabetes mellitus ad terminal makeup operator insulin use: with senior care use Diabetes mellitus complication status: with circulatory complication Diabetes mellitus complication detail: with other circulatory complications Qualified Code(s): E11.59 - Type 2 diabetes mellitus with other circulatory complications; Z79.4 - snf (current) use of insulin Is this a current diagnosis for this admission?: Yes Plan: Patient is placed on a consistent carb diet. Accu-Cheks before meals and at bedtime with sliding scale insulin. Hypoglycemia protocol in place. (6) Obesity (BMI 30-39.9) Is this a current diagnosis for this admission?: Yes Plan: Dietary and lifestyle modification are encouraged. BMI of 35.5. (7) Constipation Qualifiers: Constipation type: drug induced constipation Qualified Code(s): K59.03 - Drug induced constipation Is this a current diagnosis for this admission?: Yes Plan: Resolved. Likely drug-induced and recent surgery. Had 2 large bowel movements yesterday. Continue bowel regimen and high-fiber diet. (8) Depression Is this a current diagnosis for this admission?: Yes Plan: Patient was tearful yesterday. Today endorses depression. Denies any suicidal or homicidal ideation. Family on bedside there agreeing that patient has been depressed recently. They want to try antidepressants. We will start on Zoloft. Outpatient PCP follow-up.
[2019-03-22] MEDS: FUROSEMIDE 40 MG TABLET PO SCH (17:54)
[2019-03-22] MEDS: SERTRALINE HCL 50 MG TABLET PO SCH (17:55)
[2019-03-22] MEDS: WARFARIN SODIUM 4 MG TABLET PO SCH (22:02)
[2019-03-23 05:06] LABS: HEMATOCRIT 28.9 % (36.0-47.0); HEMOGLOBIN 9.8 g/dL (12.0-15.5); MEAN CORPUSCULAR HEMOGLOBIN 30.1 pg (27.0-33.4); MEAN CORPUSCULAR HGB CONC 33.8 g/dL (32.0-36.0); MEAN CORPUSCULAR VOLUME 89 fl (80-97); PLATELET COUNT 270 10^3/uL (150-450); RED BLOOD COUNT 3.24 10^6/uL (3.72-5.28); RED CELL DISTRIBUTION WIDTH 14.6 % (11.5-14.0); WHITE BLOOD COUNT 5.7 10^3/uL (4.0-10.5)
[2019-03-23 05:17] LABS: INTERNATIONAL RATION (INR) 1.27
[2019-03-23] MEDS: PANTOPRAZOLE SODIUM 40 MG TABLET.DR PO SCH (05:23)
[2019-03-23] MEDS: NORMAL SALINE 1000 ML 1,000 ML IV PRN (05:23)
[2019-03-23 05:28] LABS: ALBUMIN 2.6 g/dL (3.5-5.0); ALKALINE PHOSPHATASE 84 U/L (38-126); ANION GAP 6 (5-19); ASPARTATE AMINO TRANSFERASE 34 U/L (14-36); BILIRUBIN,DIRECT 0.1 mg/dL (0.0-0.4); BILIRUBIN,TOTAL 0.4 mg/dL (0.2-1.3); BLOOD UREA NITROGEN 30 mg/dL (7-20); CALCIUM 8.7 mg/dL (8.4-10.2); CARBON DIOXIDE 25 mmol/L (22-30); CHLORIDE 107 mmol/L (98-107); GLUCOSE 103 mg/dL (75-110); POTASSIUM 4.2 mmol/L (3.6-5.0); TOTAL PROTEIN 5.3 g/dL (6.3-8.2)
[2019-03-23] MEDS: ACETAMINOPHEN 325 MG TABLET PO PRN ×2 (09:07→13:30)
[2019-03-23] MEDS: CHOLECALCIFEROL (D3) 1,000 UNIT (25 MCG) TABLET PO SCH (09:10)
[2019-03-23] MEDS: FUROSEMIDE 40 MG TABLET PO SCH (09:10)
[2019-03-23] MEDS: MAGNESIUM OXIDE 400 MG TABLET PO SCH (09:11)
[2019-03-23] MEDS: POTASSIUM CHLORIDE 10 MEQ TABLET.ER PO SCH (09:12)
[2019-03-23] MEDS: PRENATAL VITAMIN W DHA CAPSULE PO SCH (09:12)
[2019-03-23] MEDS: OMEGA-3 ACID ETHYL ESTERS 1 GM CAPSULE PO SCH (09:12)
[2019-03-23] MEDS: GABAPENTIN 300 MG CAPSULE PO SCH (09:13)
[2019-03-23] MEDS: ASCORBIC ACID 500 MG TABLET PO SCH (09:13)
[2019-03-23] MEDS: FAMOTIDINE 20 MG TABLET PO SCH (09:13)
[2019-03-23] MEDS: FERROUS SULFATE 325 MG TABLET PO SCH (09:14)
[2019-03-23] MEDS: SENNOSIDES/DOCUSATE 8.6-50 MG 1 EACH TABLET PO SCH (09:14)
[2019-03-23] MEDS: SERTRALINE HCL 50 MG TABLET PO SCH (09:14)
[2019-03-23] MEDS: ENOXAPARIN SODIUM INJ 100 MG/1 ML DISP.SYRIN SUBCUT SCH (09:15)
[2019-03-23] MEDS: INSULIN LISPRO 100 UNIT/ML 3 ML VIAL SUBCUT SCH ×2 (09:20→13:28)
[2019-03-23] MEDS: INSULIN GLARGINE,HUM.REC.ANLOG 1,000 UNIT/10 ML VIAL SUBCUT SCH (09:25)
--- NOTE | 2019-03-23 10:54 | PDOC TRANSFER SUMMARY ---
General Admission Date/PCP: 03/18/19 08:41 BRANDON CARR MD Resuscitation Status: Full Code - Transfer Diagnosis (1) Atrial fibrillation Is this a current diagnosis for this admission?: Yes (2) Altered mental status Is this a current diagnosis for this admission?: Yes (3) Arthritis of left knee Is this a current diagnosis for this admission?: Yes (4) CKD (chronic kidney disease), stage III Is this a current diagnosis for this admission?: Yes (5) Diabetes mellitus type II, controlled Is this a current diagnosis for this admission?: Yes (6) Obesity (BMI 30-39.9) Is this a current diagnosis for this admission?: Yes (7) Constipation Is this a current diagnosis for this admission?: Yes (8) Depression Is this a current diagnosis for this admission?: Yes - Transfer Medications Home Medications: Ascorbic Acid [Vitamin C 500 mg Tablet] 500 mg PO MOWEFR@1000 03/09/19 Biotin 1,000 mcg PO DAILY 03/09/19 Cholecalciferol (Vitamin D3) [Vitamin D3 1000 Unit Tablet] 1,000 unit PO MOWEFR@99903/09/19 Cilostazol 50 mg PO BID 03/09/19 Ferrous Sulfate [Feosol 325 mg Tablet] 325 mg PO MOWEFR@1000 03/09/19 Furosemide [Lasix 40 mg Tablet] 40 mg PO BID 03/09/19 Gabapentin [Neurontin] 600 mg PO Q12 03/09/19 Magnesium Oxide [Mag-Ox 400 mg Tablet] 800 mg PO DAILY 03/09/19 Metolazone [Zaroxolyn 2.5 mg Tablet] 2.5 mg PO TUTHSA@1000 03/09/19 [place]-3/Dha/Epa/Fish Oil [Fish Oil 1,000 mg Softgel] 1,000 mg PO DAILY 03/09/19 Pantoprazole Sodium [Protonix [address] Tablet] 40 mg PO Q6AM 03/09/19 Potassium Chloride [Klor-Con 10 Meq Capsule ER] 10 meq PO BID 03/09/19 Ranitidine HCl [Zantac] 150 mg PO BID 03/09/19 Warfarin Sodium [Coumadin 2.5 mg Tablet] 2.5 mg PO MOWEFR@1000 03/09/19 Warfarin Sodium [Coumadin 5 mg Tablet] 5 mg PO MOWEFR@1000 03/09/19 Insulin Glargine,Hum.rec.anlog [Lantus Insulin 100 Unit/1 ml 10 ml] 45 unit SUBCUT BID 03/13/19 Transfer Medications: Current Medications Acetaminophen (Tylenol 325 Mg Tablet) 650 mg PO Q4HP PRN PRN Reason: knee pain Stop: 04/08/19 18:50 Last Admin: 03/23/19 09:07 Dose: 650 mg Documented by: Al Hydrox/Mg Hydrox/Simethicone (Maalox Plus Susp 30 Udcup) 30 ml PO Q6HP PRN PRN Reason: HEARTBURN Stop: 04/17/19 08:40 Ascorbic Acid (Vitamin C 500 Mg Tablet) 500 mg PO MOWEFR@1000 [facility] Stop: 04/12/19 09:59 Last Admin: 03/23/19 09:13 Dose: 500 mg Documented by: Cholecalciferol (Vitamin D3 1000 Unit Tablet) 1,000 unit PO MOWEFR@1000 [facility]IN Stop: 04/12/19 09:59 Last Admin: 03/23/19 09:10 Dose: 1,000 unit Documented by: Cilostazol (Pletal 100 Mg Tablet) 50 mg PO BID MARTIN Stop: 04/11/19 17:59 Last Admin: 03/22/19 17:54 Dose: 50 mg Documented by: Dextrose (Dextrose Inj 50% Syringe (25 Gm/50 Ml)) 12.5 gm IV PRN PRN; Protocol PRN Reason: FOR BG 50-69 IN ALERT PATIENT Stop: 04/13/19 18:59 Dextrose (Dextrose Inj 50% Syringe (25 Gm/50 Ml)) 25 gm IV PRN PRN; Protocol Stop: 04/13/19 18:59 Diphenhydramine HCl (Benadryl Inj 50 Mg/1 Ml Vial) 25 mg IV Q6HP PRN PRN Reason: FOR ITCHING Stop: 04/17/19 08:40 Enoxaparin Sodium (Lovenox Inj 100 Mg/1 Ml Disp.Syrin) 95 mg SUBCUT DAILY [facility]ARTIN Stop: 04/20/19 09:59 Last Admin: 03/23/19 09:15 Dose: 95 mg Documented by: Famotidine (Pepcid 20 Mg Tablet) 20 mg PO BID [facility] Stop: 04/11/19 17:59 Last Admin: 03/23/19 09:13 Dose: 20 mg Documented by: Ferrous Sulfate (Feosol 325 Mg Tablet) 325 mg PO MOWEFR@1000 [facility] Stop: 04/12/19 09:59 Last Admin: 03/23/19 09:14 Dose: 325 mg Documented by: Furosemide (Lasix 40 Mg Tablet) 40 mg PO BID MARTIN Stop: 04/11/19 17:59 Last Admin: 03/23/19 09:10 Dose: 40 mg Documented by: Gabapentin (Neurontin 300 Mg Capsule) 600 mg PO Q12 [facility] Stop: 04/11/19 21:59 Last Admin: 03/23/19 09:13 Dose: 600 mg Documented by: Glucagon (Glucagen Inj 1 Mg Vial) 1 mg IM PRN PRN; Protocol PRN Reason: EVALUATE FOR BG < 70 Stop: 04/13/19 18:59 Glucose (Glutose 40% Gel 15 Gm Tube) 15 gm PO PRN PRN; Protocol PRN Reason: FOR BG 50-69 IN ALERT PATIENT Stop: 04/13/19 18:59 Glucose (Glutose 40% Gel 15 Gm Tube) 30 gm PO PRN PRN; Protocol PRN Reason: FOR BG < 50 IN ALERT PATIENT Stop: 04/13/19 18:59 Guaifenesin (Robitussin Syrup 200 Mg/10 Ml Ud Cup) 200 mg PO Q6HP PRN PRN Reason: FOR COUGH Stop: 04/10/19 07:43 Last Admin: 03/17/19 17:31 Dose: 200 mg Documented by: Hydralazine HCl (Apresoline Inj/Pf 20 Mg/1 Ml Sdv) 10 mg IV Q3HP PRN PRN Reason: Give For Sbp > [150] Stop: 04/18/19 10:17 Sodium Chloride (Nacl 0.9% 1000 Ml Iv Soln) 1,000 mls @ 125 mls/hr IV CONTINUOUS PRN PRN Reason: THIS MED IS NOT "PRN" Stop: 04/19/19 10:58 Last Admin: 03/23/19 05:23 Dose: 125 mls/hr Documented by: Insulin Glargine (Lantus Insulin 100 Unit/1 Ml 10 Ml) 45 unit SUBCUT Q12 [facility] Stop: 04/17/19 21:59 Last Admin: 03/23/19 09:25 Dose: 45 unit Documented by: Insulin Human Lispro (Humalog Insulin 100 Unit/1 Ml 3 Ml Vial) 0 - 12 unit SUBCUT ACHS MARTIN; Protocol Stop: 04/13/19 21:59 Last Admin: 03/23/19 09:20 Dose: Not Given Documented by: Magnesium Oxide (Mag-Ox 400 Mg Tablet) 800 mg PO DAILY [facility] Stop: 04/12/19 09:59 Last Admin: 03/23/19 09:11 Dose: 800 mg Documented by: Metolazone (Zaroxolyn 2.5 Mg Tablet) 2.5 mg PO TUTHSA@1000 [facility] Stop: 04/13/19 09:59 Last Admin: 03/19/19 09:29 Dose: 2.5 mg Documented by: Metoprolol Tartrate (Lopressor Inj/Pf 5 Mg/5 Ml Sdv) 2.5 mg IV Q6HP PRN PRN Reason: hr>150 Stop: 04/18/19 10:17 Fxgcb-3-Undi Ethyl Esters (Lovaza 1 Gm Capsule) 1 gm PO DAILY [facility] Stop: 04/12/19 09:59 Last Admin: 03/23/19 09:12 Dose: 1 gm Documented by: Ondansetron HCl (Zofran Odt 4 Mg Tablet) 4 mg PO Q6HP PRN PRN Reason: Nausea Stop: 04/17/19 08:40 Pantoprazole Sodium (Protonix [address] Tablet) 40 mg PO Q6AM [facility] Stop: 04/12/19 05:59 Last Admin: 03/23/19 05:23 Dose: 40 mg Documented by: Patient Own Medication (Biotin [Biotin]) 1,000 mcg PO .DAILY [facility] Stop: 04/12/19 09:59 Potassium Chloride (Klor-Con 10 Meq Capsule Er) 10 meq PO BID [facility] Stop: 04/11/19 17:59 Last Admin: 03/23/19 09:12 Dose: 10 meq Documented by: Vit/Iron/Folic Acid/DHA ( Multi + Dha Capsule) 1 cap PO DAILY [facility] Stop: 04/17/19 09:59 Last Admin: 03/23/19 09:12 Dose: 1 cap Documented by: Senna/Docusate Sodium (Senna Plus Tablet) 1 each PO BID [facility] Stop: 04/17/19 09:59 Last Admin: 03/23/19 09:14 Dose: 1 each Documented by: Sertraline HCl (Zoloft 50 Mg Tablet) 50 mg PO DAILY [facility] Stop: 04/21/19 16:29 Last Admin: 03/23/19 09:14 Dose: 50 mg Documented by: Sodium Chloride (Saline Flush 2.5 Ml Monoject Prefil Syrin) 2.5 ml IV Q8 [facility] Stop: 04/08/19 21:59 Last Admin: 03/23/19 05:23 Dose: Not Given Documented by: Sodium Chloride (Saline Flush 2.5 Ml Monoject Prefil Syrin) 2.5 ml IV Q8 [facility] Stop: 04/17/19 13:59 Last Admin: 03/23/19 05:24 Dose: Not Given Documented by: Warfarin Sodium (Coumadin 3 Mg Tablet) 6 mg PO QHS [facility] Stop: 04/22/19 21:59 - Allergies Allergies/Adverse Reactions: Iodinated Contrast Media [IV Dye, Iodine Containing] Allergy (Verified 06/09/13 16:16) Wpbeqlw-Zgr-Kcm Reductase Inhibitor Allergy (Verified 10/19/16 22:54) Sulfa (Sulfonamide Antibiotics) Allergy (Verified 06/09/13 16:16) Hospital Course Hospital Course: The patient is an 79-year-old female with a past medical history of CHF, CAD, DC, hypertension, hyperlipidemia, peripheral vascular disease, COPD, TEE (noncompliant with CPAP), insulin-dependent diabetes mellitus, GERD, arthritis, depression, and obesity who was admitted 03/09/2019 for arthritis of the left knee resulting in ambulatory dysfunction. (1) Atrial fibrillation Rate controlled. Anticoagulated. Coumadin was held for anticipated surgery. Was started on Lovenox. Restarted on Coumadin however INR is not therapeutic yet. Patient going to rehab and hopefully will be closely followed up. She needs to continue Coumadin with daily INR and INR goal of 2-2.5. For some reason patient is not on beta-blockers or calcium channel blockers. I discussed this with patient and she is stating that she was told by her podopediatrician that she did not need them. (2) Altered mental status Resolved. Alert and oriented x3. Back to baseline. This was most likely due to acute metabolic encephalopathy most likely drug- induced. Patient has been receiving benzodiazepine and opiates for left knee arthroplasty and management of her pain. Electrolytes are WNL. UA negative. WBC WNL. CT head negative for any acute changes. Avoid benzos and opioids. (3) Arthritis of left knee Day 5 is status post left knee arthroplasty. Continue pain management and PT OT. Patient is to follow-up with orthopedic surgery as outpatient. Unfortunately she can only use Tylenol for pain as she has history of/CKD and she is very sensitive to opioids. Orthopedic surgery following. Recommendations noted. (4) CKD (chronic kidney disease), stage III Kidney function back to baseline. Had slightly worsening of creatinine likely due to NSAIDs and IV vancomycin. Euvolemic. Electrolytes WNL. Avoid NSAIDs and other nephrotoxic agents. (5) Diabetes mellitus type II, controlled Accu-Cheks before meals and at bedtime with sliding scale insulin. Hypoglycemia protocol in place. Restart home meds upon discharge. (6) Obesity (BMI 30-39.9) Dietary and lifestyle modification are encouraged. BMI of 35.5. (7) Constipation Resolved. Likely drug-induced and recent surgery. Had 2 large bowel movements yesterday. Continue bowel regimen and high-fiber diet. (8) Depression Mild improvement since being started on Zoloft. Denies any suicidal or homicidal ideation. Continue Zoloft. Physical Exam Vital Signs: Temp Pulse Resp BP Pulse Ox 97.8 F 70 15 137/57 H 97 03/23/19 07:45 03/23/19 07:45 03/23/19 07:45 03/23/19 07:45 03/23/19 07:45 Intake & Output 03/22/19 03/23/19 03/24/19 06:59 06:59 06:59 Intake Total 1400 2705 Balance 1400 2705 Weight 95.4 kg 100.7 kg General appearance: PRESENT: no acute distress, obese, well-developed, well- nourished Head exam: PRESENT: atraumatic, normocephalic Respiratory exam: PRESENT: clear to auscultation keo. ABSENT: rales, rhonchi, wheezes Cardiovascular exam: PRESENT: RRR. ABSENT: diastolic murmur, rubs, systolic murmur Extremities exam: PRESENT: full ROM, tenderness - left knee. ABSENT: calf tenderness, clubbing, pedal edema Neurological exam: PRESENT: alert, awake, oriented to person, oriented to place, oriented to time, oriented to situation, CN II-XII grossly intact. ABSENT: motor sensory deficit Results Laboratory Results: 03/23/19 04:50 03/23/19 04:50 03/22/19 03/23/19 03/23/19 13:30 04:50 04:50 WBC 7.6 5.7 RBC 3.22 L 3.24 L Hgb 9.9 L 9.8 L Hct 28.7 L 28.9 L MCV 89 89 MCH 30.6 30.1 MCHC 34.4 33.8 RDW 14.4 H 14.6 H Plt Count 263 270 Sodium 138.2 Potassium 4.2 Chloride 107 Carbon Dioxide 25 Anion Gap 6 BUN 30 H Creatinine 1.40 H Est GFR ( Amer) 44 L Glucose 103 Calcium 8.7 Total Bilirubin 0.4 AST 34 Alkaline Phosphatase 84 Total Protein 5.3 L Albumin 2.6 L 03/09/19 16:39 Creatine Kinase 56 Impressions: Chest X-Ray 03/09/19 18:23 IMPRESSION: NO ACUTE RADIOGRAPHIC FINDING IN THE CHEST. Knee X-Ray 03/18/19 08:43 IMPRESSION: Status post left TKA with expected immediate postoperative findings. Head CT 03/21/19 08:29 IMPRESSION: No acute findings. 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
[2019-03-23 12:51] VITALS: BP 147/54
[2019-03-23] MEDS: CILOSTAZOL 100 MG TABLET PO SCH (13:28)
[2019-03-23] MEDS ORDERED: WARFARIN SODIUM 3 MG TABLET PO SCH (22:00)
== END 2019-03-23 14:18 | DRG 469 ==
LOC: ER 15:46 → EH 19:53 → 4S 03-10 11:32 → OBSVTOIN 03-18 08:41
PROVIDERS: ADMIT Orthopaedic Surgery; ATTEND Family Medicine
PROC: 0SRD0J9 Replacement of Left Knee Joint with Synthetic Substitute, Cemented, Open Approach (ICD-10-PCS; principal; 2019-03-18 07:15)
DX: M17.12 Unilateral primary osteoarthritis, left knee (principal); G92 Toxic encephalopathy; I50.30 Unspecified diastolic (congestive) heart failure; I48.11 Longstanding persistent atrial fibrillation; I13.0 Hypertensive heart and chronic kidney disease with heart failure and stage 1 through stage 4 chronic kidney disease, or unspecified chronic kidney disease; E11.22 Type 2 diabetes mellitus with diabetic chronic kidney disease; N18.3 Chronic kidney disease, stage 3 (moderate); I25.10 Atherosclerotic heart disease of native coronary artery without angina pectoris; K21.9 Gastro-esophageal reflux disease without esophagitis; K59.03 Drug induced constipation; E66.9 Obesity, unspecified; G47.33 Obstructive sleep apnea (adult) (pediatric); T42.4X5A Adverse effect of benzodiazepines, initial encounter; T40.605A Adverse effect of unspecified narcotics, initial encounter; Y92.230 Patient room in hospital as the place of occurrence of the external cause; Z60.2 Problems related to living alone; Z86.73 Personal history of transient ischemic attack (TIA), and cerebral infarction without residual deficits; Z79.01 Long term (current) use of anticoagulants; Z79.4 Long term (current) use of insulin; Z79.51 Long term (current) use of inhaled steroids; Z79.899 Other long term (current) drug therapy; Z88.2 Allergy status to sulfonamides; Z91.041 Radiographic dye allergy status; Z95.0 Presence of cardiac pacemaker; Z91.19 Patient's noncompliance with other medical treatment and regimen; Z68.35 Body mass index [BMI] 35.0-35.9, adult
CPT/HCPCS: 01402; 36415; 36600; 70450; 71045; 80048; 80053; 81001; 82550; 82803; 82962; 83036; 83735; 85025; 85027; 85610; 85730; 88305; 88311; 93005; 93010; 94799; 99285; C1713; C1776; G0378; J1650; J1741; J1815; J1885; J2250; J2310; J2370; J2405; J2704; J3010; J3370; J3490; J7030; J7050; J7060; J7120

== ENCOUNTER 2019-04-24 09:27 | Emergency (ER) | payer MEDICARE, OTHER ==
[2019-04-24] MEDS ORDERED: OXYMETAZOLINE HCL 0.05% NASAL SPRAY 15 ML BOTTLE NASL ONE (09:54)
[2019-04-24 10:26] LABS: ABSOLUTE BASOPHILS # (AUTO) 0.1 10^3/uL (0.0-0.2); ABSOLUTE EOSINOPHILS # (AUTO) 0.5 10^3/uL (0.0-0.6); ABSOLUTE LYMPHOCYTES (AUTO) 1.4 10^3/uL (0.5-4.7); ABSOLUTE MONOCYTES (AUTO) 0.8 10^3/uL (0.1-1.4); ABSOLUTE NEUT (AUTO) 3.7 10^3/uL (1.7-8.2); BASOPHILS % (AUTO) 0.8 % (0-2); EOSINOPHILS % (AUTO) 7.9 % (0-6); HEMATOCRIT 31.1 % (36.0-47.0); HEMOGLOBIN 10.2 g/dL (12.0-15.5); MEAN CORPUSCULAR HEMOGLOBIN 28.6 pg (27.0-33.4); MEAN CORPUSCULAR HGB CONC 32.8 g/dL (32.0-36.0); MEAN CORPUSCULAR VOLUME 87 fl (80-97); MONOCYTES % (AUTO) 12.3 % (3-13); PLATELET COUNT 219 10^3/uL (150-450); RED BLOOD COUNT 3.57 10^6/uL (3.72-5.28); RED CELL DISTRIBUTION WIDTH 16.2 % (11.5-14.0); TOTAL CELLS COUNTED % (AUTO) 100 %; WHITE BLOOD COUNT 6.4 10^3/uL (4.0-10.5)
[2019-04-24 10:32] LABS: INTERNATIONAL RATION (INR) 2.77; PROTHROMBIN TIME 29.8 SEC (11.4-15.4)
[2019-04-24 10:33] LABS: PARTIAL THROMBOPLASTIN TIME 43.8 SEC (23.5-35.8)
--- NOTE | 2019-04-24 10:44 | ER Document Report ---
ED ENT - General Chief Complaint: Nose Bleed Stated Complaint: NOSE BLEED Time Seen by Provider: 04/24/19 09:42 Primary Care Provider: CANDIS WICK MD [NO LOCAL MD] - Follow up as needed Notes: Patient is a 79-year-old female with a history of CKD, COPD, hyperlipidemia, sleep apnea, UTI, CHF and A. fib on Coumadin who presents to the emergency department with a chief complaint of nosebleed. Patient reports she has had 4 nosebleeds within the past 24 hours. Patient reports last nosebleed started from the right nare about 2 hours ago. She reports a steady ooze out of the right nare. Patient denies injury. Patient denies change in Coumadin dosage. Patient denies fall. Patient reports that back in February she did have a left knee replacement which is why she is in rehab currently. Patient denies recent illness such as a runny nose, cough or upper respiratory infection type symptoms. Patient denies dizziness. TRAVEL OUTSIDE OF THE [place] IN LAST 30 DAYS: No - Related Data Allergies/Adverse Reactions: Iodinated Contrast Media [IV Dye, Iodine Containing] Allergy (Verified 04/24/19 10:51) Pvwpywi-Ahe-Rnc Reductase Inhibitor Allergy (Verified 04/24/19 10:51) Sulfa (Sulfonamide Antibiotics) Allergy (Verified 04/24/19 10:51) Past Medical History - General Information source: Patient - Social History Smoking Status: Unknown if Ever Smoked Frequency of alcohol use: None Drug Abuse: None Lives with: [facility] Family History: Reviewed & Not Pertinent - Past Medical History Cardiac Medical History: Reports: Hx Congestive Heart Failure, Hx Coronary Artery Disease, Hx Heart Attack, Hx Hypercholesterolemia, Hx Hypertension, Hx Peripheral Vascular Disease Denies: Hx DVT, Hx Pulmonary Embolism Pulmonary Medical History: Reports: Hx Bronchitis, Hx COPD, Hx Sleep Apnea - Not compliant with CPAP mask due to discomfort. Denies: Hx Tuberculosis EENT Medical History: Reports: None Neurological Medical History: Reports: Hx Cerebrovascular Accident Endocrine Medical History: Reports: Hx Diabetes Mellitus Type 1, Hx Diabetes Mellitus Type 2. Denies: Hx Hyperthyroidism, Hx Hypothyroidism Renal/ Medical History: Reports: None. Denies: Hx Peritoneal Dialysis Malignancy Medical History: Reports: None GI Medical History: Reports: Hx Gastroesophageal Reflux Disease. Denies: Hx Cirrhosis, Hx Hepatitis Musculoskeletal Medical History: Reports Hx Arthritis Skin Medical History: Reports None Psychiatric Medical History: Reports: Hx Anxiety, Hx Depression Traumatic Medical History: Reports: None Infectious Medical History: Reports: None. Denies: Hx Hepatitis Past Surgical History: Reports: Hx Cardiac Catheterization, Hx Cardiac Surgery - Mitral valve repair after the myocardial infarction in 2006, Hx Hysterectomy, Hx Pacemaker, Hx Tonsillectomy, Hx Vascular Surgery - 3 stents placed in the right groin and thigh and popliteal region - Immunizations Immunizations up to date: No Hx Diphtheria, Pertussis, Tetanus Vaccination: Yes Hx Pneumococcal Vaccination: 04/22/16 Review of Systems - Review of Systems Constitutional: No symptoms reported EENT: See HPI Cardiovascular: No symptoms reported Respiratory: No symptoms reported Gastrointestinal: No symptoms reported Genitourinary: No symptoms reported Female Genitourinary: No symptoms reported Musculoskeletal: No symptoms reported Skin: No symptoms reported Hematologic/Lymphatic: No symptoms reported Neurological/Psychological: No symptoms reported Physical Exam - Vital signs Vitals: Temp Pulse Resp BP Pulse Ox 98.0 F 71 18 115/46 L 96 04/24/19 09:40 04/24/19 09:40 04/24/19 09:40 04/24/19 09:40 04/24/19 09:40 - Notes Notes: GENERAL: Well-appearing, well-nourished and in no acute distress. HEAD: Atraumatic, normocephalic. EYES: Pupils equal round and reactive to light, extraocular movements intact, sclera anicteric, conjunctiva are normal. ENT: Right nare reveals blood clot with active ooze of blood, left nare clear, oropharynx clear without exudates. Moist mucous membranes. NECK: Normal range of motion, supple without lymphadenopathy or JVD. LUNGS: Breath sounds clear to auscultation bilaterally and equal. No wheezes rales or rhonchi. HEART: Regular rate and rhythm without murmurs, rubs or gallops. ABDOMEN: Soft, nontender, normoactive bowel sounds. No guarding, no rebound. No masses appreciated. BACK: No cervical, thoracic, lumbar midline tenderness. No saddle anesthesia, normal distal neurovascular exam. GENITOURINARY: Deferred. EXTREMITIES: Normal range of motion, no pitting or edema. No clubbing or cyanosis. NEUROLOGICAL: Cranial nerves II through XII grossly intact. Normal speech, normal gait. PSYCH: Normal mood, normal affect. SKIN: Warm, Dry, normal turgor, no rashes or lesions noted. Course - Re-evaluation Re-evalutation: 04/24/19 10:15 Patient has an active nosebleed in the right nare. This is a constant slow ooze. Will obtain basic labs as well as coags due to the patient's anticoagulation with Coumadin. Will attempt to use Afrin to help stop the bleed. 10:44 Nurse states that the nosebleed has subsided at this time. We will continue to monitor. Labs pending. Patient no acute distress. 04/24/19 11:07 Patient is not tachycardic, hypotensive at this time. Patient is not currently having a nosebleed after receiving the Afrin. I did inform the patient to not rub her nose or blow her nose for the next 24 hours. Patient was given strict return precautions. We will continue to monitor. Patient's INR less than 5. 04/24/19 14:29 Patient waiting for ride home but is discharged from the emergency department. Patient has not had any nosebleeds since receiving the Afrin. I did speak with Dr. Crouch, my attending channel process supervisor who recommends holding the Coumadin dose today and restarting tomorrow. I also told the patient the refrain from physical therapy today and restart tomorrow. Patient verbalized understanding. - Vital Signs Vital signs: Temp Pulse Resp BP Pulse Ox 97.7 F 70 16 139/41 H 95 04/24/19 13:03 04/24/19 13:03 04/24/19 13:03 04/24/19 13:03 04/24/19 13:03 - Laboratory Result Diagrams: 04/24/19 10:05 04/24/19 10:05 Laboratory results interpreted by me: 04/24/19 04/24/19 04/24/19 10:05 10:05 10:05 RBC 3.57 L Hgb 10.2 L Hct 31.1 L RDW 16.2 H Eos % (Auto) 7.9 H PT 29.8 H APTT 43.8 H Creatinine 1.36 H Est GFR ( Amer) 45 L Est GFR (MDRD) Non-Af 37 L Glucose 151 H Albumin 3.4 L 04/24/19 11:07 Laboratory 04/24/19 04/24/1904/24/20 10:05 10:05 10:05 WBC 6.4 RBC 3.57 L Hgb 10.2 L Hct 31.1 L MCV 87 MCH 28.6 MCHC 32.8 RDW 16.2 H Plt Count 219 Lymph % (Auto) 22.0 [place] % (Auto) 12.3 Eos % (Auto) 7.9 H Baso % (Auto) 0.8 Absolute Neuts (auto) 3.7 Absolute Lymphs (auto) 1.4 Absolute Monos (auto) 0.8 Absolute Eos (auto) 0.5 Absolute Basos (auto) 0.1 Seg Neutrophils % 57.0 PT 29.8 H INR 2.77 APTT 43.8 H Sodium 140.2 Potassium 4.1 Chloride 107 Carbon Dioxide 24 Anion Gap 9 BUN 20 Creatinine 1.36 H Est GFR ( Amer) 45 L Est GFR (MDRD) Non-Af 37 L Glucose 151 H Calcium 9.1 Total Bilirubin 0.5 Direct Bilirubin 0.2 Neonat Total Bilirubin Not Reportable Neonat Direct Bilirubin Not Reportable Neonat Indirect Bili Not Reportable AST 28 ALT 15 Alkaline Phosphatase 88 Total Protein 6.6 Albumin 3.4 L Discharge - Discharge Clinical Impression: Nosebleed, Right-sided nosebleed, Anticoagulated on Coumadin, Anemia of chronic disease, superintendent terminal current use of anticoagulant therapy, CKD (chronic kidney disease), stage III Atrial fibrillation Qualifiers: Atrial fibrillation type: unspecified Qualified Code(s): I48.91 - Unspecified atrial fibrillation Condition: Stable Disposition: REHAB FACILITY Additional Instructions: Today was seen in the emergency department for nosebleed. After receiving Afrin the bleeding has subsided. You not have not had a nosebleed since then. There is a significant chance for rebleeding following a nosebleed. Proper care makes this less likely. Do not touch the nose or blow the nose forcefully for 1 week. Do not touch the nose for 24 hours. As discussed you can apply Vaseline ointment to both nostrils with the tip of your finger over the next 3 days starting tomorrow. It is normal to have bloody mucus discharge for a few days. *Hold Coumadin dose today, and continue Coumadin dose tomorrow. Nosebleed Instructions There is a significant chance of re-bleeding following a nosebleed. Proper care makes this less likely. Do not touch the nose for 24 hours. Do not blow the nose forcefully for one week. After 24 hours, gently apply Vaseline ointment to both nostrils with the tip of a finger, three times a day, for one week. It's normal to have a bloody mucous discharge for a few days. If active bleeding recurs, blow all the blood from the nose, then sit quietly and pinch the nose as firmly as possible for 10 minutes. If this does not stop the bleeding, return for further care. Persons with frequent nosebleeds should avoid aspirin (unless prescribed for another reason). Humidity in the bedroom, and petroleum jelly applied to the nostrils at night may help. Referrals: CANDIS WICK MD [NO LOCAL MD] - Follow up as needed
[2019-04-24 10:52] LABS: ALBUMIN 3.4 g/dL (3.5-5.0); ALKALINE PHOSPHATASE 88 U/L (38-126); ANION GAP 9 (5-19); ASPARTATE AMINO TRANSFERASE 28 U/L (14-36); BILIRUBIN,DIRECT 0.2 mg/dL (0.0-0.4); BILIRUBIN,TOTAL 0.5 mg/dL (0.2-1.3); BLOOD UREA NITROGEN 20 mg/dL (7-20); CALCIUM 9.1 mg/dL (8.4-10.2); CARBON DIOXIDE 24 mmol/L (22-30); CHLORIDE 107 mmol/L (98-107); GLUCOSE 151 mg/dL (75-110); POTASSIUM 4.1 mmol/L (3.6-5.0); TOTAL PROTEIN 6.6 g/dL (6.3-8.2)
[2019-04-24 13:04] VITALS: BP 139/41
== END 2019-04-24 14:00 ==
LOC: ER 09:27
DX: R04.0 Epistaxis (principal); I48.91 Unspecified atrial fibrillation; I13.0 Hypertensive heart and chronic kidney disease with heart failure and stage 1 through stage 4 chronic kidney disease, or unspecified chronic kidney disease; N18.3 Chronic kidney disease, stage 3 (moderate); I50.9 Heart failure, unspecified; D63.1 Anemia in chronic kidney disease; Z79.01 Long term (current) use of anticoagulants; J44.9 Chronic obstructive pulmonary disease, unspecified; I25.10 Atherosclerotic heart disease of native coronary artery without angina pectoris
CPT/HCPCS: 99284; 36415; 85025; 85610; 85730; 80053; A9270; J3490

== ENCOUNTER → 2019-06-08 | Outpatient (CLI) | payer MEDICARE, OTHER ==
[2019-06-08 15:22] LABS: ABSOLUTE EOSINOPHILS # (AUTO) 0.4 10^3/uL (0.0-0.6); ABSOLUTE LYMPHOCYTES (AUTO) 2.2 10^3/uL (0.5-4.7); ABSOLUTE MONOCYTES (AUTO) 0.8 10^3/uL (0.1-1.4); ABSOLUTE NEUT (AUTO) 3.6 10^3/uL (1.7-8.2); BASOPHILS % (AUTO) 0.7 % (0-2); EOSINOPHILS % (AUTO) 5.6 % (0-6); HEMATOCRIT 38.3 % (36.0-47.0); HEMOGLOBIN 12.6 g/dL (12.0-15.5); LYMPHOCYTES % (AUTO) 30.8 % (13-45); MEAN CORPUSCULAR HEMOGLOBIN 27.3 pg (27.0-33.4); MEAN CORPUSCULAR HGB CONC 32.8 g/dL (32.0-36.0); MEAN CORPUSCULAR VOLUME 83 fl (80-97); PLATELET COUNT 230 10^3/uL (150-450); RED CELL DISTRIBUTION WIDTH 15.9 % (11.5-14.0); SEGMENTED NEUTROPHILS % (AUTO) 51.9 % (42-78); TOTAL CELLS COUNTED % (AUTO) 100 %
[2019-06-08 15:41] LABS: ANION GAP 9 (5-19); BLOOD UREA NITROGEN 31 mg/dL (7-20); CALCIUM 9.6 mg/dL (8.4-10.2); CARBON DIOXIDE 28 mmol/L (22-30); CHLORIDE 101 mmol/L (98-107); GLUCOSE 226 mg/dL (75-110); POTASSIUM 4.4 mmol/L (3.6-5.0)
[2019-06-08 16:09] LABS: APPEARANCE,URINE TURBID; BILIRUBIN,URINE NEGATIVE (NEGATIVE); COLOR,URINE YELLOW; GLUCOSE, URINE NEGATIVE (NEGATIVE); KETONES,URINE NEGATIVE (NEGATIVE); LEUKOCYTE ESTERASE,URINE LARGE (NEGATIVE); NITRITE,URINE NEGATIVE (NEGATIVE); PROTEIN,URINE 100 mg/dL (NEGATIVE); URINE SPECIFIC GRAVITY 1.015; UROBILINOGEN,URINE NEGATIVE mg/dL (<2.0)
[2019-06-10 14:37] LABS: CREATININE URINE 148.2 mg/dL (Not Estab.); MICROALBUMIN URINE 299.7 ug/mL (Not Estab.)
== END ==
LOC: OD 14:52
PROVIDERS: ATTEND Internal Medicine Nephrology
DX: I12.9 Hypertensive chronic kidney disease with stage 1 through stage 4 chronic kidney disease, or unspecified chronic kidney disease (principal); N18.3 Chronic kidney disease, stage 3 (moderate); E11.22 Type 2 diabetes mellitus with diabetic chronic kidney disease; N39.0 Urinary tract infection, site not specified
CPT/HCPCS: 36415; 80069; 81001; 82043; 82306; 82570; 83970; 85025; 87086; 87088; 87186

== ENCOUNTER → 2019-06-11 | Outpatient (CLI) | payer MEDICARE, OTHER ==
--- NOTE | 2019-06-11 14:50 | RADIOLOGY REPORT (SQ) ---
EXAM DESCRIPTION: CT ABD/PELVIS COMBO COMPLETED DATE/TIME: 06/11/2019 11:10 am REASON FOR STUDY: GROSS HEMATURIA (R31.0), HYDRONEPHROSIS (N13.30) R31.0 GROSS HEMATURIA COMPARISON: None. TECHNIQUE: CT scan of the abdomen and pelvis performed with and without intravenous contrast, and wi thout oral contrast. Contrasted imaging performed helical scanning technique and dynamic intravenous contrast injection. Images reviewed with lung, soft tissue, and bone windows. Reconstructed coronal a nd sagittal MPR images reviewed. Delayed images for evaluation of the urinary system also acquired. A ll images stored on PACS. All CT scanners at this facility use dose modulation, iterative reconstruction, and/or weight based d osing when appropriate to reduce radiation dose to as low as reasonably achievable (ALARA). [facility]: Dose Right [facility]: CareDose [facility]: Dose Right [facility]: Teradose 4D [facility]: [employer] CONTRAST TYPE AND DOSE: contrast/concentration: Isovue 350.00 mg/ml; Total Contrast Delivered: 100.0 ml; Total Saline Delivered: 72.0 ml RENAL FUNCTION: BUN 31 creatinine 1.6 RADIATION DOSE: CT Rad equipment meets quality standard of care and radiation dose reduction techniq ues were employed. CTDIvol: 18.3 - 20.5 mGy. DLP: 3080 mGy-cm. . LIMITATIONS: None. FINDINGS: LOWER CHEST: Small hiatal hernia. LIVER: Normal size. No masses. No dilated ducts. SPLEEN: Normal size. No focal lesions. PANCREAS: No masses. No significant calcifications. No adjacent inflammation or peripancreatic fluid collections. Pancreatic duct not dilated. GALLBLADDER: No identified stones by CT criteria. No inflammatory changes to suggest cholecystitis. ADRENAL GLANDS: No significant masses or asymmetry. RIGHT KIDNEY AND URETER: No solid masses. No significant calcifications. No hydronephrosis or hyd roureter. LEFT KIDNEY AND URETER: 2.6 cm midpole cyst. No solid masses. 2 mm stone lower pole. No hydronep hrosis or hydroureter. AORTA AND VESSELS: No aneurysm. RETROPERITONEUM: No retroperitoneal adenopathy, hemorrhage or masses. BOWEL AND PERITONEAL CAVITY: Diverticulosis descending and sigmoid colon. No masses or inflammatory changes. No free fluid or peritoneal masses. APPENDIX: Normal. PELVIS: No mass. No free fluid. Normal bladder. ABDOMINAL WALL: Fat containing umbilical hernia. BONES: Nothing acute. OTHER: No other significant finding. IMPRESSION: 1. Small nonobstructing left renal calculus. 2. Left renal cyst. TECHNICAL DOCUMENTATION: JOB ID: [id number] Quality ID # [id number]: Final reports with documentation of one or more dose reduction techniques (e.g., Au tomated exposure control, adjustment of the mA and/or kV according to patient size, use of iterative reconstruction technique) 2010 [employer]- All Rights Reserved Reading location - IP/workstation name: [facility]
== END ==
LOC: RAD 10:00
PROVIDERS: ATTEND Urology
DX: R31.0 Gross hematuria (principal); N13.30 Unspecified hydronephrosis
CPT/HCPCS: 74178; 82565